=== PATIENT | male | born 1950 | race Caucasian/White ===

== ENCOUNTER → 2018-09-12 | Outpatient (CLI) | payer BC ==
--- NOTE | 2018-09-12 16:54 | Diagnostic Imaging Report ---
CLINICAL INDICATION: Patient has had some numbness around the left side of the mouth going down to his chin x 2 days. EXAM: Axial CT scan of the brain performed without IV contrast. COMPARISON: None. FINDINGS: There is no evidence of acute cerebral infarct, intracranial hemorrhage, or gross mass effect. The brain parenchymal volume appears appropriate for the patient's age. There are a few focal areas of low-attenuation white matter changes involving both cerebral hemispheres, likely representing chronic small vessel ischemic disease. There is normal perez/white matter distinction. There is no significant midline shift or herniation. There is no evidence of hydrocephalus. The basal cisterns are unremarkable. The skull, extracranial soft tissue, and orbits are unremarkable. The paranasal sinuses are unremarkable. The temporal bones show no significant abnormality. IMPRESSION: Unremarkable CT scan of the brain for age. Dictated by: Dictated on workstation # [id number]
== END ==
LOC: RAD FS 16:39
PROVIDERS: ATTEND Family Medicine
DX: R20.0 Anesthesia of skin (principal)
CPT/HCPCS: 70450

== ENCOUNTER → 2019-04-15 | Outpatient (CLI) | payer BC ==
--- NOTE | 2019-04-15 12:08 | Diagnostic Imaging Report ---
Right knee at 1048 hours. INDICATION: Knee pain. Three views were obtained. COMPARISON: There are no prior studies available for comparison. FINDINGS: There is no fracture, dislocation or acute bony abnormality evident. However, the articular surface of the medial aspect of the proximal tibia does seem depressed. This could be a sequela of prior trauma. This could also be related to degenerative disease. There is narrowing of all three compartments of the knee joint and there is osteophyte formation along the medial aspect of the medial femoral condyle and the anterior aspect of the distal femur. There may also be mild soft tissue edema along the medial aspect of the knee joint. There is no sign of a joint effusion. IMPRESSION: 1. There is no evidence for an acute bony abnormality. 2. 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 2. If clinical concern regarding an underlying abnormality persists and further imaging is desired, then MRI would be recommended. Dictated by: Dictated on workstation # [id number]
== END ==
LOC: RAD FS 10:39
PROVIDERS: ATTEND Nurse Practitioner
DX: M17.11 Unilateral primary osteoarthritis, right knee (principal)
CPT/HCPCS: 73562

== ENCOUNTER 2019-05-05 22:12 | Emergency (ER) | payer BC, MEDICARE ==
[~2019-05-05] VITALS: Ht 175 cm; Wt 69.1 kg
[2019-05-05] MEDS ORDERED: NS IV 1000 ML 1,000 ML IV SCH (22:48)
[2019-05-05] MEDS ORDERED: fentaNYL INJECTION 100 MCG/2 ML AMP IVP STA (22:48)
[2019-05-05] MEDS ORDERED: VANCOMYCIN INJECTION 1,000 MG in NS (IVPB) 250 ML IV ONE (23:00)
[2019-05-05] MEDS ORDERED: PIPERACILLIN SODIUM/TAZOBACTAM 4.5 GM in NS (IVPB) 100 ML IV ONE (23:00)
[2019-05-05] MEDS ORDERED: ONDANSETRON 4 MG/2 ML (SDV) Z0FRAN IVP ONE (23:00)
[2019-05-05 23:07] LABS: BASOPHILS % (AUTO) 0 % (0-10); EOSINOPHILS # (AUTO) 0.2 10^3/uL (0.0-0.3); EOSINOPHILS % (AUTO) 2 % (0-10); HEMATOCRIT 44 % (40-54); HEMOGLOBIN 14.8 G/DL (13.3-17.7); LYMPHOCYTES # (AUTO) 2.5 X 10^3 (1.0-4.0); LYMPHOCYTES % (AUTO) 22 % (12-44); MEAN CORPUSCULAR HEMOGLOBIN 30 PG (25-34); MEAN CORPUSCULAR HGB CONC 34 G/DL (32-36); MEAN CORPUSCULAR VOLUME 90 FL (80-99); MONOCYTES # (AUTO) 1.3 X 10^3 (0.0-1.0); MONOCYTES % (AUTO) 12 % (0-12); NEUTROPHILS # (AUTO) 7.5 X 10^3 (1.8-7.8); NEUTROPHILS % (AUTO) 65 % (42-75); PLATELET COUNT 170 10^3/uL (130-400); RED CELL DISTRIBUTION WIDTH 16.1 % (10.0-14.5); WHITE BLOOD COUNT 11.6 10^3/uL (4.3-11.0)
[2019-05-05 23:13] LABS: BILIRUBIN,URINE NEGATIVE (NEGATIVE); CLARITY,URINE CLEAR; COLOR,URINE YELLOW; GLUCOSE, URINE (UA) NEGATIVE (NEGATIVE); KETONES,URINE NEGATIVE (NEGATIVE); LEUKOCYTE ESTERASE ,URINE 1+ (NEGATIVE); NITRITE,URINE NEGATIVE (NEGATIVE); PH,URINE 5 (5-9); PROTEIN,URINE 1+ (NEGATIVE)
[2019-05-05 23:18] LABS: INR 1.2 (0.8-1.4); PROTHROMBIN TIME PATIENT 15.9 SEC (12.2-14.7)
[2019-05-05 23:20] LABS: BACTERIA,URINE NEGATIVE /HPF; SQUAMOUS EPITHELIAL CELL,UR 0-2 /HPF; WBC,URINE RARE /HPF
[2019-05-05 23:27] LABS: ALANINE AMINOTRANSFERASE 23 U/L (0-55); ALBUMIN 3.7 GM/DL (3.2-4.5); ALKALINE PHOSPHATASE 102 U/L (40-136); AMYLASE 49 U/L (25-125); BUN/CREATININE RATIO 42; CARBON DIOXIDE 22 MMOL/L (21-32); CHLORIDE 101 MMOL/L (98-107); CREATININE SERUM 0.66 MG/DL (0.60-1.30); GFR ESTIMATED > 60; GLUCOSE 104 MG/DL (70-105); LIPASE 45 U/L (8-78); MAGNESIUM 2.1 MG/DL (1.6-2.4); POTASSIUM 4.8 MMOL/L (3.6-5.0); SODIUM 134 MMOL/L (135-145); TOTAL PROTEIN 7.2 GM/DL (6.4-8.2)
[2019-05-05] MEDS ORDERED: LACTATED RINGERS 1,000 ML IV ONE (23:35)
[2019-05-06] MEDS ORDERED: IOHEXOL 350 MG/ML 150 ML (OMNIPAQUE 350) VIAL IV ONE (00:15)
[2019-05-06] MEDS ORDERED: NS 100 ML (IVPB) BAG IV ONE (00:15)
[2019-05-06] MEDS ORDERED: ONDANSETRON 4 MG/2 ML (SDV) Z0FRAN IVP ONE (00:45)
[2019-05-06] MEDS ORDERED: fentaNYL INJECTION 100 MCG/2 ML AMP IVP ONE ×2 (00:45→01:45)
[2019-05-06] MEDS ORDERED: PANTOPRAZOLE 40 MG (PROTONIX) VIAL IV ONE (00:45)
--- NOTE | 2019-05-06 00:50 | ED General ---
General Chief Complaint: General Problems/Pain Stated Complaint: NAUSEA, PAIN Nursing Triage Note: Pt to [facility] 3 via w/c with c/o overall weakness and left jaw pain unrelieved with prescribed meds. 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 Pt also reports he's been dry heaving since approx 1999 this evening. Nursing Sepsis Screen: No Definite Risk Source of Information: Patient, Family History of Present Illness Date Seen by Provider: May 05, 2019 Time Seen by Provider: 22:35 Initial Comments PT ARRIVES VIA POV FROM HOME WITH FAMILY C/O SEVERE PAIN IN LEFT JAW, ALSO SWELLING TO LEFT JAW--ONGOING PROBLEM, GETTING WORSE ALSO C/O MID ABDOMINAL PAIN--ONGOING PROBLEM, WORSE TODAY C/O NAUSEA AND DRY HEAVES ALSO C/O ONGOING DIARRHEA FOR A FEW WEEKS, BUT ALSO HAS INTERMITTENT CONSTIPA TION NO FEVER ALSO C/O ONGOING HEARTBURN AND SOME DIFFICULTY SWALLOWING AT TIMES. 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 LATER THE PRIMARY WAS FOUND TO BE IN HIS LEFT KIDNEY. STATES THE TUMOR IN HIS JAW IS CAUSING HIS TEETH TO SHIFT AND HAS ACTUALLY CAUSED HIS JAW TO FRACTURE. PT HAS NOT HAD SURGERY OR RADIATION. PT HAS ONLY HAD IMMUNOTHERAPY, BUT QUIT TAKING THAT THE FIRST OF . PT IS NOW ON ORAL CHEMOTHERAPY. PT IS FOLLOWED BY DR. VILLEGAS, ONCOLOGIST, AT . NEXT APPOINTMENT IS 05/13/19 PT HAS A FEEDING TUBE IN PLACE, HE CANNOT HAVE ANYTHING THAT REQUIRES CHEWING. HE IS ABLE TO DRINK LIQUIDS WELL. FEEDING TUBE HAS BEEN WORKING NORMALLY. STATES HE HAS BEEN HAVING INCREASED SWELLING TO JAW, AND HAS BEEN TREATED WITH STEROIDS AND ANTIBIOTICS--THE LAST TIME WAS 3-4 WEEKS AGO, AND IT HAD GOTTEN BETTER FOR A WEEK OR TWO, AND THEN STARTED GETTING WORSE AGAIN SAW DR. ANTHONY LAST MONDAY AND AGAIN ON Monday05/03/19 FOR THIS PROBLEM, AND WAS PRESCRIBED CLINDAMYCIN AND A STEROID, THIS IS THE REGIMEN THAT HAD BEEN GIVING HIM. PT HAS BEEN TAKING HYDROCODONE FOR PAIN, BUT IS NOT HELPING. HAS BEEN ON OXYCODONE IN THE PAST, BUT PT CANNOT TOLERATE IT. ADDITIONALLY, PT HAD A TONSIL STONE EXTRACTED AT IN THE LAST WEEK OR TWO. PT ALSO HAD A STEROID SHOT IN HIS LEFT KNEE LAST WEEK BY ESTHETICIAN/OWNER ЮЛИЯ SMITH, FOR CHRONIC KNEE PAIN . PCP: DR. ANTHONY ONCOLOGY: DR. VILLEGAS AT Allergies and Home Medications Allergies Coded Allergies: lisinopril (Verified Allergy, Intermediate, 05/05/19) Home Medications Diphenoxylate HCl/Atropine 1 Each Tablet, 1 EACH PO Q6H Prescribed by: ALLAN PIERCE on 05/06/19127 Fentanyl 1 Each Patch.td72, 50 MCG TD Q72H Prescribed by: ALLAN PIERCE on 05/06/19117 Ondansetron 8 Mg Tab.rapdis, 8 MG PO Q6H Prescribed by: ALLAN PIERCE on 05/06/19117 Pantoprazole Sodium 40 Mg Tablet.dr, 40 MG PO DAILY Prescribed by: ALLAN PIERCE on 05/06/19117 Patient Home Medication List Home Medication List Reviewed: Yes Review of Systems Review of Systems Constitutional: no symptoms reported; No chills, No fever EENTM: see HPI Respiratory: no symptoms reported; No cough, No short of breath Cardiovascular: no symptoms reported Gastrointestinal: see HPI, abdominal pain, diarrhea, loss of appetite, nausea Genitourinary: no symptoms reported Musculoskeletal: other (ONGOING LEFT KNEE PAIN--GOT STEROID SHOT IN LEFT KNEE LAST WEEK) Skin: no symptoms reported Psychiatric/Neurological: No Symptoms Reported Hematologic/Lymphatic: No Symptoms Reported Immunological/Allergic: see HPI Past Jkojefj-Ybjhnw-Cgksmo Hx Patient Social History Alcohol Use: Denies Use Recreational Drug Use: No Smoking Status: Former Smoker (SMOKED 1 PPD, QUIT 20 YEARS AGO. THEN CHEWED TOBACCO, ALSO QUIT THAT) Type Used: Cigarettes, Smokeless Tobacco 2nd Hand Smoke Exposure: No Recent Foreign Travel: No Contact w/Someone Who Travel: No Recent Infectious Disease Expo: No Recent Hopitalizations: Yes Physical Abuse: No Sexual Abuse: No Mistreated: No Fear: No Seasonal Allergies Seasonal Allergies: No Past Medical History Surgeries: Yes (PARTIAL COLECTOMY FOR BENIGN POLYPS; LEFT KNEE SCOPE; FEEDING TUBE. ) Abdominal, Orthopedic Respiratory: No Cardiac: Yes Hypertension Neurological: No Genitourinary: Yes (LEFT RENAL CANCER--Dx October 2018) Gastrointestinal: Yes (FEEDING TUBE; PARTIAL COLECTOMY FOR BENIGN POLYPS) Polyps Musculoskeletal: No Endocrine: No HEENT: Yes (LEFT MANDIBLE METASTATIC MASS-FROM PRIMARY TUMOR OF LEFT KIDNEY) Cancer: Yes (LEFT RENAL CANCER WITH METS TO LEFT MANDIBLE. DX 10/2018--S/P IMMUNOTHERAPY ( NONE SINCE 03/17/19) AND CURRENTLY ON ORAL CHEMO. ) Kidney Did You Recieve Any Treatments: Yes What Type of Treatment Did You: Chemotherapy Psychosocial: No Integumentary: No Blood Disorders: No Physical Exam Vital Signs Vital Signs - First Documented 05/05/19 22:20 Temp 37.4 Pulse 105 Resp 18 B/P (MAP) 109/78 (88) Pulse Ox 96 O2 Delivery Room Air Capillary Refill : Less Than 3 Seconds Height, Weight, BMI Height: '" Weight: lbs. oz. kg; 22.00 BMI Method: General Appearance: No Apparent Distress, WD/WN HEENT: PERRL/EOMI, Other (VERY LARGE, FIRM MASS TO LEFT MANDIBULAR AREA. NO SIGNS OF INFLAMMATION TO SKIN--NO REDNESS OR WARMTH. ) Neck: Full Range of Motion Respiratory: Normal Breath Sounds, No Accessory Muscle Use, No Respiratory Dist ress Cardiovascular: Regular Rate, Rhythm, No Edema, No Murmur Gastrointestinal: Soft, Other (FEEDING TUBE IN PLACE. MILD MID ABDOMINAL TENDERNESS. ) Back: No CVA Tenderness Extremity: Normal Inspection Neurologic/Psychiatric: Alert, Oriented x3, No Motor/Sensory Deficits, fur scraper II- XII Norm as Tested, Depressed Affect, Other (FLAT AFFECT) Skin: Normal Color, Warm/Dry Focused Exam Lactate Level 05/05/19 23:06: Lactic Acid Level 1.53 Lactic Acid Level Laboratory Tests Test 05/05/19 23:06 Lactic Acid Level 1.53 MMOL/L (0.50-2.00) Progress/Results/Core Measures Suspected Sepsis Recent Fever Within 48 Hours: No Infection Criteria Present: None New/Unexplained Altered Menta: No Sepsis Screen: No Definite Risk SIRS Temperature: Pulse: 105 Respiratory Rate: 18 Laboratory Tests 05/05/19 22:58: White Blood Count 11.6H Blood Pressure 109 /78 Mean: 88 05/05/19 23:06: Lactic Acid Level 1.53 Laboratory Tests 05/05/19 22:58: Creatinine 0.66, INR Comment 1.2, Platelet Count 170, Total Bilirubin 1.0 Results/Orders Lab Results Laboratory Tests Test 05/05/19 22:58 05/05/19 23:06 10/20/19 23:09 Range/Units White Blood Count 11.6 H 4.3-11.0 10^3/uL Red Blood Count 4.91 4.35-5.85 10^6/uL Hemoglobin 14.8 13.3-17.7 G/DL Hematocrit 44 40-54 % Mean Corpuscular Volume 90 80-99 FL Mean Corpuscular Hemoglobin 30 25-34 PG Mean Corpuscular Hemoglobin Concent 34 32-36 G/DL Red Cell Distribution Width 16.1 H 10.0-14.5 % Platelet Count 170 130-400 10^3/uL Mean Platelet Volume 11.0 H 7.4-10.4 FL Neutrophils (%) (Auto) 65 42-75 % Lymphocytes (%) (Auto) 22 12-44 % Monocytes (%) (Auto) 12 0-12 % Eosinophils (%) (Auto) 2 0-10 % Basophils (%) (Auto) 0 0-10 % Neutrophils # (Auto) 7.5 1.8-7.8 X 10^3 Lymphocytes # (Auto) 2.5 1.0-4.0 X 10^3 Monocytes # (Auto) 1.3 H 0.0-1.0 X 10^3 Eosinophils # (Auto) 0.2 0.0-0.3 10^3/uL Basophils # (Auto) 0.0 0.0-0.1 10^3/uL Prothrombin Time 15.9 H 12.2-14.7 SEC INR Comment 1.2 0.8-1.4 Activated Partial Thromboplast Time 36 H 24-35 SEC Sodium Level 134 L 135-145 MMOL/L Potassium Level 4.8 3.6-5.0 MMOL/L Chloride Level 101 98-107 MMOL/L Carbon Dioxide Level 22 21-32 MMOL/L Anion Gap 11 5-14 MMOL/L Blood Urea Nitrogen 28 H 7-18 MG/DL Creatinine 0.66 0.60-1.30 MG/DL Estimat Glomerular Filtration Rate > 60 BUN/Creatinine Ratio 42 Glucose Level 104 70-105 MG/DL Calcium Level 9.0 8.5-10.1 MG/DL Corrected Calcium 9.2 8.5-10.1 MG/DL Magnesium Level 2.1 1.6-2.4 MG/DL Total Bilirubin 1.0 0.1-1.0 MG/DL Aspartate Amino Transf (AST/SGOT) 39 H 5-34 U/L Alanine Aminotransferase (ALT/SGPT) 23 0-55 U/L Alkaline Phosphatase 102 40-136 U/L Total Protein 7.2 6.4-8.2 GM/DL Albumin 3.7 3.2-4.5 GM/DL Amylase Level 49 25-125 U/L Lipase 45 8-78 U/L Lactic Acid Level 1.53 0.50-2.00 MMOL/L Urine Color YELLOW Urine Clarity CLEAR Urine pH 5 5-9 Urine Specific [place] 1.010 L 1.016-1.022 Urine Protein 1+ H NEGATIVE Urine Glucose (UA) NEGATIVE NEGATIVE Urine Ketones NEGATIVE NEGATIVE Urine Nitrite NEGATIVE NEGATIVE Urine Bilirubin NEGATIVE NEGATIVE Urine Urobilinogen NORMAL NORMAL MG/DL Urine Leukocyte Esterase 1+ H NEGATIVE Urine RBC (Auto) NEGATIVE NEGATIVE Urine RBC NONE /HPF Urine WBC RARE /HPF Urine Squamous Epithelial Cells 0-2 /HPF Urine Crystals NONE /LPF Urine Bacteria NEGATIVE /HPF Urine Casts NONE /LPF Urine Mucus SMALL H /LPF Urine Culture Indicated CULTURE PENDING My Orders Orders - ALLAN PIERCE DO Monitor-Rhythm Ecg Trace Only (05/05/19 22:48) Amylase (05/05/19 22:48) Cbc With Automated Diff (05/05/19 22:48) Comprehensive Metabolic Panel (05/05/19 22:48) Lactic Acid Analyzer (05/05/19 22:48) Lipase (05/05/19 22:48) Magnesium (05/05/19 22:48) Protime With Inr (05/05/19 22:48) Partial Thromboplastin Time (05/05/19 22:48) Ua Culture If Indicated (05/05/19 22:48) Blood Culture (05/05/19 22:48) Chest 1 View, Ap/Pa Only (05/05/19 22:48) Ed Iv/Invasive Line Start (05/05/19 22:48) Ns Iv 1000 Ml (Sodium Chloride 0.9%) (05/05/19 22:48) Ondansetron Injection (Zofran Injectio (05/05/19 23:00) Fentanyl Injection (Sublimaze Injection (05/05/19 22:48) Piperacillin Sodium/Tazobactam (Zosyn Vi (05/05/19 23:00) Vancomycin Injection (Vancomycin Injecti (05/05/19 23:00) Urine Culture (05/05/19 22:48) Ed Iv/Invasive Line Start (05/05/19 22:48) Ed Iv/Invasive Line Start (05/05/19 22:48) Vital Signs Adult Sepsis Patie Q15M (05/05/19 22:48) O2 (05/05/19 22:48) Remove Rings In Anticipation O (05/05/19 22:48) Ct Maxillofacial W (05/05/19 23:34) Ct Chest/Abdomen/Pelvis W (05/05/19 23:34) Ed Iv/Invasive Line Start (05/05/19 23:35) Lactated Ringers (Lr 1000 Ml Iv Solution (05/05/19 23:35) Iohexol Injection (Omnipaque 350 Mg/Ml 1 (05/06/19 00:15) Ns (Ivpb) (Sodium Chloride 0.9% Ivpb Bag (05/06/19 00:15) Pantoprazole Injection (Protonix Injecti (05/06/19 00:45) Fentanyl Injection (Sublimaze Injection (05/06/19 00:45) Ondansetron Injection (Zofran Injectio (05/06/19 00:45) Fentanyl Patch (Duragesic Patch) (05/06/19 01:15) Rx-Ondansetron Po (Rx-Zofran Po) (05/06/19 01:13) Medications Given in ED Current Medications Medications Dose Ordered Sig/Britton Route Start Time Stop Time Status Last Admin Dose Admin Fentanyl Citrate 50 mcg ONCE ONCE IVP 05/06/19 00:45 05/06/19 00:46 DC 05/06/19 00:46 50 MCG Iohexol 150 ml ONCE ONCE IV 05/06/19 00:15 05/06/19 01:15 DC 05/06/19 00:16 150 ML Lactated Ringer's 1,000 ml @ 0 mls/hr Q0M ONCE IV 05/05/19 23:35 05/05/19 23:36 DC 05/06/19 00:51 0 MLS/HR Ondansetron HCl 8 mg ONCE ONCE IVP 05/05/19 23:00 05/05/19 23:01 DC 05/05/19 23:23 8 MG Ondansetron HCl 8 mg ONCE ONCE IVP 05/06/19 00:45 05/06/19 00:46 DC 05/06/19 00:46 8 MG Pantoprazole 40 mg ONCE ONCE IV 05/06/19 00:45 05/06/19 00:46 DC 05/06/19 00:46 40 MG Piperacillin Sod/ Tazobactam Sod 4.5 gm/Sodium Chloride 100 ml @ 200 mls/hr ONCE ONCE IV 05/05/19 23:00 05/05/19 23:29 DC 05/06/19 01:19 200 MLS/HR Sodium Chloride 100 ml ONCE ONCE IV 05/06/19 00:15 05/06/19 01:16 DC 05/06/19 00:16 100 ML Vancomycin HCl 1000 mg/Sodium Chloride 250 ml @ 250 mls/hr ONCE ONCE IV 05/05/19 23:00 05/05/19 23:59 DC 05/05/19 23:28 250 MLS/HR Vital Signs/I&O 05/05/19 22:20 Temp 37.4 Pulse 105 Resp 18 B/P (MAP) 109/78 (88) Pulse Ox 96 O2 Delivery Room Air Capillary Refill : Less Than 3 Seconds Blood Pressure Mean: 88 Progress Note : Progress Note GIVEN FENTANYL FOR PAIN AND ZOFRAN FOR NAUSEA WITH IMPROVEMENT IN SYMPTOMS NO DETERIORATION IN PT'S CONDITION DURING ER STAY Diagnostic Imaging Comments CT MAXILLOFACIALS--LARGE DESTRUCTIVE MASS ON LEFT MANDIBULAR ANGLE/RAMUS 4.2 X 2. X 5.3 CM. ERODES THROUGH THE LEFT MANDIBLE AND IN THE BASE INTO THE SURROUNDING SOFT TISSUE STRUCTURES--PER [facility] VIA FAX AT 0043 CT CHEST ANGIOGRAM/ ABDOMEN - PELVIS---LEFT EXOPHYTIC PARTIALLY CALCIFIED RENAL "CYST" , NO DEFINITE METASTASIS IN ABDOMEN OR CHEST. PROSTATE ENLARGEMENT--PER [facility] VIA FAX AT 0101 CXR--NO ACUTE PROCESS, PENDING RADIOLOGIST REVIEW Reviewed: Reviewed by Me Departure Impression Primary Impression: Primary cancer of left kidney with metastasis from kidney to other site Additional Impressions: METASTATIC MASS OF LEFT MANDIBLE Abdominal pain LEFT JAW PAIN Alternating constipation and diarrhea Disposition: 01 HOME, SELF-CARE Condition: Improved Departure-Patient Inst. Referrals: BRYAN ANTHONY DO (PCP/Family) Primary Care Physician Patient Instructions: Acute Abdomen (Belly Pain), Adult (DC), Cancer Pain Syndromes (DC), Kidney Cancer, Managing Pain When You Have Cancer Add. Discharge Instructions: CONTINUE YOUR CURRENT MEDICATIONS PRESCRIBED LEAVE FENTANYL PATCH IN PLACE FOR 3 DAYS FOLLOW UP WITH DR. ANTHONY THIS WEEK FOR FURTHER CARE FOLLOW UP WITH YOUR ONCOLOGIST NEXT WEEK SCHEDULED. All discharge instructions reviewed with patient and/or family. Voiced understanding. Scripts Diphenoxylate HCl/Atropine (Lomotil 2.5-0.025 mg Tablet) 1 Each Tablet 1 EACH PO Q6H for Diarrhea, #20 TAB Prov: ALLAN PIERCE DO 05/06/19 Pantoprazole Sodium (Protonix) 40 Mg Tablet.dr 40 MG PO DAILY, #15 TAB Prov: ALLAN PIERCE DO 05/06/19 Ondansetron (Ondansetron Odt) 8 Mg Tab.rapdis 8 MG PO Q6H for Nausea/Vomiting, #10 TAB Prov: ALLAN PIERCE DO 05/06/19 Fentanyl (Fentanyl Patch 50 MCG) 1 Each Patch.td72 50 MCG TD Q72H, #1 PATCH Prov: ALLAN PIERCE DO 05/06/19 ALLAN PIERCE DO May 06, 2019 00:50
[2019-05-06] MEDS ORDERED: RX-ONDANSETRON 4 MG ODT (ZOFRAN) PPK #4 PO STA (01:13)
[2019-05-06] MEDS ORDERED: fentaNYL PATCH 50 MCG (DURAGESIC) TD SCH (01:15)
[2019-05-06] MEDS ORDERED: ONDA8TAB13 PO (01:18)
[2019-05-06] MEDS ORDERED: PANT40TA2 PO (01:18)
[2019-05-06] MEDS ORDERED: FENT1PAT9 TD (01:18)
[2019-05-06] MEDS ORDERED: DIPH1TAB PO (01:28)
[2019-05-06 02:00] VITALS: BP 110/85
--- NOTE | 2019-05-06 08:02 | Diagnostic Imaging Report ---
PROCEDURE: CT maxillofacial with contrast. TECHNIQUE: After intravenous administration of contrast, axial images were obtained through the face and reformatted into coronal and sagittal planes. Auto Exposure Controls were utilized during the CT exam to meet ALARA standards for radiation dose reduction. INDICATION: Facial pain and diagnosis of cancer. Imaging through the lower brain reveals no focal abnormality. There is expansile lytic destructive lesion involving the body of the left mandible measuring approximately 3.5 x 4.0 x 4.9 cm. This results in marked destruction of the left mandible and displacement of the associated teeth. There is extraosseous soft tissue component extending into the subcutaneous tissues superficially as well as into the medial retromandibular tissues. No other definite bone destruction is identified. There is no evidence of pathologic adenopathy. There is no evidence of airway compromise. IMPRESSION: Destructive left mandibular body mass with associated naheed-osseous soft tissue component compatible with neoplasm resulting in direct extension into the adjacent fat planes. No definite pathologic adenopathy is identified. Dictated by: Dictated on workstation # [id number]
--- NOTE | 2019-05-06 08:10 | Diagnostic Imaging Report ---
CHEST 1 VIEW, AP/PA ONLY Indication: Chest pain. Comparison: None available. Findings: No focal airspace disease in the visualized lungs. Please note that the posterior lower lobes are poorly evaluated by portable radiography. No pleural effusion or pneumothorax. Normal cardiomediastinal silhouette. Impression: 1. No acute cardiopulmonary process by portable radiography. Dictated by: Dictated on workstation # [id number]
--- NOTE | 2019-05-06 08:10 | Diagnostic Imaging Report ---
PROCEDURE: CT chest, abdomen, and pelvis with contrast. TECHNIQUE: Multiple contiguous axial images were obtained through the chest, abdomen, and pelvis after the administration of intravenous contrast. Auto Exposure Controls were utilized during the CT exam to meet ALARA standards for radiation dose reduction. INDICATION: Nausea and abdominal pain in patient with history of cancer. CT chest: FINDINGS: Lungs are clear. There is no significant pleural or pericardial fluid. No pathologic adenopathy is identified. There is no evidence of osseous lesion. IMPRESSION: No acute abnormality or evidence of metastatic disease in the thorax. CT abdomen and pelvis: FINDINGS: Low density is seen in the liver indicating steatosis. Percutaneous gastrostomy tube is seen in the left upper quadrant without evidence of complication. There is no evidence of splenic, gallbladder, pancreatic or adrenal gland abnormality. Right kidney is also unremarkable in appearance. There is an approximately 9 cm in diameter low-density mass arising from the lower pole of the left kidney. There are peripheral calcifications. Overall density is increased compared to simple fluid and this could be related to complex cystic mass although solid low-density nature is not excluded. No free fluid is seen within the abdomen or pelvis. There is no evidence of pathologic adenopathy. Partially opacified urinary bladder reveals no filling defect. Lateral wall is somewhat thickened which could be due to incomplete distention. IMPRESSION: 9 cm left renal mass does not fulfill criteria for simple cyst. This could be related to complex cystic lesion or solid mass. This could be further assessed with ultrasonography or MRI for assessment. Otherwise, no acute abnormality or metastatic disease is seen in the abdomen or pelvis. Dictated by: Dictated on workstation # [id number]
== END 2019-05-06 02:04 | disposition home or self-care (01) ==
LOC: EDUNIT# 22:12 → ER 22:14
DX: C64.2 Malignant neoplasm of left kidney, except renal pelvis (principal); C79.51 Secondary malignant neoplasm of bone; K59.00 Constipation, unspecified; R19.7 Diarrhea, unspecified; I10 Essential (primary) hypertension; Z88.8 Allergy status to other drugs, medicaments and biological substances; Z87.891 Personal history of nicotine dependence
CPT/HCPCS: 36415; 70487; 71045; 71260; 74177; 80053; 81000; 82150; 83605; 83690; 83735; 85025; 85610; 85730; 87040; 87077; 87088; 87186; 93041

== ENCOUNTER 2019-05-26 15:21 | Inpatient (IN) | payer BC, MEDICARE ==
[~2019-05-26] VITALS: Ht 177.8 cm; Wt 76.6 kg
[~2019-05-26 15:21] MED LIST: DIPH1TAB PO; FENT1PAT9 TD; ONDA8TAB13 PO; PANT40TA2 PO
[2019-05-26 15:56] LABS: HEMATOCRIT 46 % (40-54); HEMOGLOBIN 14.5 G/DL (13.3-17.7); MEAN CORPUSCULAR HEMOGLOBIN 29 PG (25-34); MEAN CORPUSCULAR HGB CONC 32 G/DL (32-36); MEAN CORPUSCULAR VOLUME 91 FL (80-99); WHITE BLOOD COUNT 7.8 10^3/uL (4.3-11.0)
[2019-05-26 15:57] LABS: BASOPHILS % (AUTO) 1 % (0-10); EOSINOPHILS # (AUTO) 0.1 10^3/uL (0.0-0.3); EOSINOPHILS % (AUTO) 2 % (0-10); LYMPHOCYTES # (AUTO) 2.4 X 10^3 (1.0-4.0); LYMPHOCYTES % (AUTO) 30 % (12-44); MONOCYTES # (AUTO) 0.7 X 10^3 (0.0-1.0); MONOCYTES % (AUTO) 9 % (0-12); NEUTROPHILS # (AUTO) 4.6 X 10^3 (1.8-7.8); NEUTROPHILS % (AUTO) 58 % (42-75); PLATELET COUNT 196 10^3/uL (130-400); RED CELL DISTRIBUTION WIDTH 14.9 % (10.0-14.5)
[2019-05-26 16:00] LABS: BILIRUBIN,URINE NEGATIVE (NEGATIVE); CLARITY,URINE CLEAR; COLOR,URINE YELLOW; GLUCOSE, URINE (UA) NEGATIVE (NEGATIVE); KETONES,URINE NEGATIVE (NEGATIVE); LEUKOCYTE ESTERASE ,URINE NEGATIVE (NEGATIVE); NITRITE,URINE NEGATIVE (NEGATIVE); PROTEIN,URINE NEGATIVE (NEGATIVE)
[2019-05-26] MEDS ORDERED: HYDROmorphone 2 MG/ML VIAL (DILAUDID) IV ONE (16:00)
[2019-05-26 16:01] LABS: SQUAMOUS EPITHELIAL CELL,UR RARE /HPF
[2019-05-26 16:26] LABS: BUN/CREATININE RATIO 38; CARBON DIOXIDE 25 MMOL/L (21-32); CHLORIDE 97 MMOL/L (98-107); GFR ESTIMATED > 60; POTASSIUM 4.7 MMOL/L (3.6-5.0); SODIUM 136 MMOL/L (135-145)
[2019-05-26 16:27] LABS: ALANINE AMINOTRANSFERASE 43 U/L (0-55); ALKALINE PHOSPHATASE 132 U/L (40-136); BILIRUBIN,TOTAL 1.5 MG/DL (0.1-1.0); CALCIUM 9.8 MG/DL (8.5-10.1); GLUCOSE 113 MG/DL (70-105); LIPASE 3000 U/L (8-78); TOTAL PROTEIN 7.4 GM/DL (6.4-8.2)
--- NOTE | 2019-05-26 17:27 | ED Abdominal Pain ---
General Chief Complaint: Abdominal/GI Problems Stated Complaint: STOMACH PAIN Nursing Triage Note: Patient presents to the ED with c/o severe abdominal pain. Reports that the pain is located in the epigastric region and started yesterday evening. The pain is increased upon palpation of the area. Patient has a feeding tube that was placed 4 months prior. Family states that he has had no issues flushing his feeding tube. Sepsis Screen: No Definite Risk Source of Information: Patient, Family Exam Limitations: No Limitations History of Present Illness Date Seen by Provider: May 26, 2019 Time Seen by Provider: 17:22 Initial Comments The patient is a 68-year-old white male who presents with complaints of severe and sharp midepigastric pain. He reports that this pain came on this morning. He has not ever really had anything quite like. 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 He has been using a tube feeding for the past 4 months. He has a past history of colon resection and his family states that he has had diarrhea since he has been on the tube feeding. He has been taking pain medicine for his cancer. He is presently on fentanyl 25 g every 72 hours. He has hydrocodone and oxycodone for breakthrough pain but has not found him to be very useful. Timing/Duration: 12 Hours Severity/Quality: Moderate, Severe Location: Epigastric Radiation: No Radiation Activities at Onset: None Allergies and Home Medications Allergies Coded Allergies: lisinopril (Verified Allergy, Intermediate, 05/05/19) Home Medications Diphenoxylate HCl/Atropine 1 Each Tablet, 1 EACH PO Q6H Prescribed by: ALLAN PIERCE on 05/06/19127 Fentanyl 1 Each Patch.td72, 50 MCG TD Q72H Prescribed by: ALLAN PIERCE on 05/06/19117 Ondansetron 8 Mg Tab.rapdis, 8 MG PO Q6H Prescribed by: ALLAN PIERCE on 05/06/19117 Pantoprazole Sodium 40 Mg Tablet.dr, 40 MG PO DAILY Prescribed by: ALLAN PIERCE on 05/06/19117 Patient Home Medication List Home Medication List Reviewed: Yes Review of Systems Review of Systems Constitutional: see HPI EENTM: No Symptoms Reported Respiratory: No Symptoms Reported Cardiovascular: No Symptoms Reported Gastrointestinal: See HPI, Diarrhea Genitourinary: See HPI Musculoskeletal: no symptoms reported Skin: no symptoms reported Psychiatric/Neurological: No Symptoms Reported Endocrine: No Symptoms Reported Hematologic/Lymphatic: No Symptoms Reported Past Uxigigz-Bafojt-Aubiud Hx Patient Social History Alcohol Use: Denies Use Recreational Drug Use: No Smoking Status: Former Smoker Type Used: Cigarettes, Smokeless Tobacco 2nd Hand Smoke Exposure: No Recent Foreign Travel: No Contact w/Someone Who Travel: No Recent Infectious Disease Expo: No Recent Hopitalizations: Yes Physical Abuse: No Sexual Abuse: No Mistreated: No Fear: No Seasonal Allergies Seasonal Allergies: No Past Medical History Surgeries: Yes (PARTIAL COLECTOMY FOR BENIGN POLYPS; LEFT KNEE SCOPE; FEEDING TUBE. ) Abdominal, Orthopedic Respiratory: No Cardiac: Yes Hypertension Neurological: No Genitourinary: Yes (LEFT RENAL CANCER--Dx October 2018) Gastrointestinal: Yes (FEEDING TUBE; PARTIAL COLECTOMY FOR BENIGN POLYPS) Polyps Musculoskeletal: No Endocrine: No HEENT: Yes (LEFT MANDIBLE METASTATIC MASS-FROM PRIMARY TUMOR OF LEFT KIDNEY) Cancer: Yes Kidney Did You Recieve Any Treatments: Yes What Type of Treatment Did You: Chemotherapy Psychosocial: No Integumentary: No Blood Disorders: No Physical Exam Vital Signs Vital Signs - First Documented 05/26/19 15:30 Temp 36.7 Pulse 98 Resp 19 B/P (MAP) 108/84 (92) Pulse Ox 100 O2 Delivery Room Air Capillary Refill : Less Than 3 Seconds Height/Weight/BMI Height: '" Weight: lbs. oz. kg; 21.00 BMI Method: General Appearance: no apparent distress, other (the patient is calm and pleasant.) HEENT: normal ENT inspection Neck: full range of motion Respiratory: chest non-tender, lungs clear, normal breath sounds, no respiratory distress, no accessory muscle use Cardiovascular: normal peripheral pulses, regular rate, rhythm, no edema, no gallop, no JVD, no murmur Gastrointestinal: other (feeding tube insertion site is in the right upper quadrant. The patient exhibits considerable tenderness to palpation horizontally across the umbilicus.) Back: normal inspection Neurologic/Psychiatric: bibliographic services specialist II-XII nml as tested, no motor/sensory deficits, alert Skin: normal color, warm/dry Lymphatic: no adenopathy Progress/Results/Core Measures Results/Orders Lab Results Laboratory Tests Test 05/26/19 15:35 05/26/19 15:40 Range/Units Urine Color YELLOW Urine Clarity CLEAR Urine pH 6.0 5-9 Urine Specific [place] <1.005 1.016-1.022 Urine Protein NEGATIVE NEGATIVE Urine Glucose (UA) NEGATIVE NEGATIVE Urine Ketones NEGATIVE NEGATIVE Urine Nitrite NEGATIVE NEGATIVE Urine Bilirubin NEGATIVE NEGATIVE Urine Urobilinogen 0.2 < = 1.0 MG/DL Urine Leukocyte Esterase NEGATIVE NEGATIVE Urine RBC (Auto) NEGATIVE NEGATIVE Urine RBC NONE /HPF Urine WBC NONE /HPF Urine Squamous Epithelial Cells RARE /HPF Urine Crystals NONE /LPF Urine Bacteria NONE /HPF Urine Casts NONE /LPF Urine Mucus NEGATIVE /LPF Urine Culture Indicated NO White Blood Count 7.8 4.3-11.0 10^3/uL Red Blood Count 5.06 4.35-5.85 10^6/uL Hemoglobin 14.5 13.3-17.7 G/DL Hematocrit 46 40-54 % Mean Corpuscular Volume 91 80-99 FL Mean Corpuscular Hemoglobin 29 25-34 PG Mean Corpuscular Hemoglobin Concent 32 32-36 G/DL Red Cell Distribution Width 14.9 H 10.0-14.5 % Platelet Count 196 130-400 10^3/uL Mean Platelet Volume 11.0 H 7.4-10.4 FL Neutrophils (%) (Auto) 58 42-75 % Lymphocytes (%) (Auto) 30 12-44 % Monocytes (%) (Auto) 9 0-12 % Eosinophils (%) (Auto) 2 0-10 % Basophils (%) (Auto) 1 0-10 % Neutrophils # (Auto) 4.6 1.8-7.8 X 10^3 Lymphocytes # (Auto) 2.4 1.0-4.0 X 10^3 Monocytes # (Auto) 0.7 0.0-1.0 X 10^3 Eosinophils # (Auto) 0.1 0.0-0.3 10^3/uL Basophils # (Auto) 0.0 0.0-0.1 10^3/uL Sodium Level 136 135-145 MMOL/L Potassium Level 4.7 3.6-5.0 MMOL/L Chloride Level 97 L 98-107 MMOL/L Carbon Dioxide Level 25 21-32 MMOL/L Anion Gap 14 5-14 MMOL/L Blood Urea Nitrogen 23 H 7-18 MG/DL Creatinine 0.60 0.60-1.30 MG/DL Estimat Glomerular Filtration Rate > 60 BUN/Creatinine Ratio 38 Glucose Level 113 H 70-105 MG/DL Calcium Level 9.8 8.5-10.1 MG/DL Corrected Calcium 9.8 8.5-10.1 MG/DL Total Bilirubin 1.5 H 0.1-1.0 MG/DL Aspartate Amino Transf (AST/SGOT) 92 H 5-34 U/L Alanine Aminotransferase (ALT/SGPT) 43 0-55 U/L Alkaline Phosphatase 132 40-136 U/L Total Protein 7.4 6.4-8.2 GM/DL Albumin 4.0 3.2-4.5 GM/DL Lipase 3000 H 8-78 U/L My Orders Orders - JACQUELINE WILLARD MD Cbc With Automated Diff (05/26/19 15:24) Comprehensive Metabolic Panel (05/26/19 15:24) Lipase (05/26/19 15:24) Ua Culture If Indicated (05/26/19 15:24) Hydromorphone Injection (Dilaudid Inject (05/26/19 16:00) Medications Given in ED Current Medications Medications Dose Ordered Sig/Britton Route Start Time Stop Time Status Last Admin Dose Admin Hydromorphone HCl 0.5 mg ONCE ONCE IV 05/26/19 16:00 05/26/19 16:01 DC 05/26/19 16:04 0.5 MG Vital Signs/I&O 05/26/19 15:30 Temp 36.7 Pulse 98 Resp 19 B/P (MAP) 108/84 (92) Pulse Ox 100 O2 Delivery Room Air Blood Pressure Mean: 92 POS Departure Communication (Admissions) The patient and his family were informed that his lipase was 3000. He was familiar with that as his father who was a drinker of alcohol had multiple episodes of pancreatitis. Impression Primary Impression: acute pancreatitis Additional Impression: left renal carcinoma with metastases Disposition: SHT-TRM HOSP Condition: Stable/Unchanged Transfer Transfer Reason: Exceeds level of care Time Spoke to Accepting Phy: 17:25 Transfer Progress Notes The findings were discussed with Dr. Ferrera who is the [facility] hospitalist of the day. She accepted the patient in transfer. Departure-Patient Inst. Referrals: BRYAN ANTHONY DO (PCP/Family) Primary Care Physician Patient Instructions: No Instuctions Given JACQUELINE WILLARD MD May 26, 2019 17:27 POS
[2019-05-26] MEDS ORDERED: NS IV 1000 ML 1,000 ML IV SCH (19:00)
[2019-05-26 20:40] VITALS: BP 105/75
--- NOTE | 2019-05-26 21:00 | NUR ---
ANISHEMILIA Dia admitted to room 411-1, with an admitting diagnosis of acute pancreatitis, on 05/26/[address] [facility] ed via [facility], accompanied by [facility] & .EMILIA OCONNELL introduced to surroundings, call light, bed controls, phone, TV, temperature control, lights, meal times, smoking policy, visitor policy, side rail policy, bathrooms and showers. Patient Rights given to patient in the handbook. EMILIA OCONNELL Ifeoma verbalizes understanding that [facility] is not responsible for the loss or damage to any personal effects or valuables that are kept in the patients possession during their hospitalization. The patient's plan of care was discussed with the patient, he denies any questions or concerns at this time.
[2019-05-26] MEDS: HYDROmorphone 2 MG/ML VIAL (DILAUDID) IV PRN (21:15)
[2019-05-26] MEDS ORDERED: IOHEXOL 350 MG/ML 100 ML (OMNIPAQUE 350) VIAL IV ONE (21:30)
[2019-05-26] MEDS ORDERED: NS 100 ML (IVPB) BAG IV ONE (21:30)
[2019-05-26] MEDS ORDERED: HOLD METFORMIN - RECEIVED CONTRAST 20 ML VIAL IV SCH (21:30)
--- NOTE | 2019-05-26 21:49 | NUR ---
dr. hutton notified of consult
--- NOTE | 2019-05-26 22:16 | Diagnostic Imaging Report ---
PROCEDURE: CT abdomen and pelvis with contrast. TECHNIQUE: Multiple contiguous axial images were obtained through the abdomen and pelvis after administration of intravenous contrast. Auto Exposure Controls were utilized during the CT exam to meet ALARA standards for radiation dose reduction. INDICATION: Pancreatitis. Abdominal pain. Currently on chemotherapy for stage IV kidney cancer with metastases. COMPARISON: 05/05/2019 FINDINGS: The heart is unremarkable. The included lung bases are clear. The pancreas has an unremarkable noncontrast CT appearance. No peripancreatic inflammatory changes are seen. No evidence of pancreatic pseudocyst. A large cyst is seen in the inferior pole of the left kidney with associated calcifications, unchanged compared to the prior exam. No evidence of hydronephrosis or obstructing calculi. There is hepatic steatosis of the liver with focal fatty sparing in the gallbladder fossa. No focal hepatic lesions are seen. The spleen and adrenal glands have a normal appearance. Retroperitoneal lymphadenopathy is noted, with a marker nodule in the left periaortic station measuring 2.2 cm, similar to the prior exam. A G-tube is seen in appropriate configuration. Numerous fluid-filled nondilated loops of small bowel are seen throughout the abdomen. A normal appendix is seen. No evidence of bowel obstruction. No free fluid or free air is seen. There is no free fluid or free air. No acute osseous abnormalities. Ureters and bladder are grossly normal. The prostate is enlarged. There is no free air, loculated collection, or adenopathy in the pelvis. IMPRESSION: 1. Unremarkable CT appearance of the pancreas without evidence of peripancreatic inflammation or pseudocyst. 2. Nondilated fluid-filled loops of small bowel, which may represent enteritis. No evidence of bowel obstruction at this time. 3. Large cyst in the inferior pole of the left kidney, representing the patient's history of kidney cancer. Retroperitoneal lymphadenopathy is unchanged. 4. Hepatic steatosis. No focal hepatic lesions. Dictated by: Dictated on workstation # [id number]
[2019-05-26] MEDS: NS IV 1000 ML 1,000 ML IV SCH (23:58)
[2019-05-27] VITALS (7 sets, daily range): BP systolic 104–126; BP diastolic 62–82
[2019-05-27] MEDS: HYDROmorphone 2 MG/ML VIAL (DILAUDID) IV PRN ×6 (00:08→20:25)
--- NOTE | 2019-05-27 01:23 | NUR ---
pt reports his peg tube feeding schedule is-1.5 cans in the 0800, 1200,1730- pt flushes 60 mls of water before & after feeding-pt does not remember the brand
[2019-05-27 05:25] LABS: BASOPHILS % (AUTO) 1 % (0-10); EOSINOPHILS # (AUTO) 0.2 10^3/uL (0.0-0.3); EOSINOPHILS % (AUTO) 2 % (0-10); HEMATOCRIT 44 % (40-54); LYMPHOCYTES # (AUTO) 1.6 X 10^3 (1.0-4.0); LYMPHOCYTES % (AUTO) 23 % (12-44); MEAN CORPUSCULAR HEMOGLOBIN 29 PG (25-34); MEAN CORPUSCULAR HGB CONC 32 G/DL (32-36); MEAN CORPUSCULAR VOLUME 89 FL (80-99); MEAN PLATELET VOLUME 11.7 FL (7.4-10.4); MONOCYTES # (AUTO) 0.8 X 10^3 (0.0-1.0); MONOCYTES % (AUTO) 12 % (0-12); NEUTROPHILS # (AUTO) 4.4 X 10^3 (1.8-7.8); NEUTROPHILS % (AUTO) 63 % (42-75); PLATELET COUNT 152 10^3/uL (130-400); RED CELL DISTRIBUTION WIDTH 15.8 % (10.0-14.5)
[2019-05-27] MEDS: NS IV 1000 ML 1,000 ML IV SCH ×2 (05:28→17:23)
--- NOTE | 2019-05-27 08:38 | Consultation - Surgery ---
RUDY HINSON,MED STUDENT 05/27/19 0838: History of Present Illness History of Present Illness Patient Consulted On(patito/time) 05/27/19 08:28 Date Seen by Provider: May 27, 2019 Time Seen by Provider: 07:45 History of Present Illness Mr. Keller is a 68yo male c/o abdominal pain since Monday night. He says the pain started Monday night and was a 2/10, and gradually worsened. By the time he presented to [facility] ED the pain was a 10/10. He describes the pain as a constant sharp pain in the midepigastrium that is nonradiating. Pain medication helped the pain, and nothing worsened the pain. He currently has left renal carcinoma with known metastases. He notes a metastasis to the jaw and has been receiving treatment at for his cancer. He reports diarrhea every day for the past 3 months, and has them 3-4x's/day. He describes the stool as a light dumas color and denies blood. He has a history of a colon resection and has a feeding tube in place. Denies fevers, nausea/vomiting, chest pain. He is urinating fine, and his last bowel movement was last night. Allergies and Home Medications Allergies Coded Allergies: lisinopril (Verified Allergy, Intermediate, 05/05/19) Home Medications Alprazolam 0.25 Mg Tablet, 0.25 MG PO BID, (Reported) Axitinib 5 Mg Tablet, 5 MG PO BID, (Reported) Diphenoxylate HCl/Atropine 1 Each Tablet, 1 EACH PO Q6H Prescribed by: ALLAN PIERCE on 05/06/19 0128 Diphenoxylate HCl/Atropine 1 Each Tablet, 1 TAB PO Q6H PRN for DIARRHEA, (Repo rted) Famotidine 20 Mg Tablet, 20 MG PO BID, (Reported) Fentanyl 1 Each Patch.td72, 25 MCG TD [id number], (Reported) TOOK PATCH OFF ON 05-26-2019 AND HAS NOT REAPPLIED Losartan Potassium 50 Mg Tablet, 50 MG PO DAILY, (Reported) Ondansetron 8 Mg Tab.rapdis, 8 MG PO Q6H PRN for NAUSEA/VOMITING-1ST LINE, (Reported) Pantoprazole Sodium 40 Mg Tablet.dr, 40 MG PO DAILY, (Reported) Zolpidem Tartrate 10 Mg Tablet, 10 MG PO HS, (Reported) Past Xylbdbr-Etybhr-Gxsefi Hx Patient Social History Alcohol Use: Denies Use Recreational Drug Use: No Smoking Status: Former Smoker Type Used: Cigarettes, Smokeless Tobacco 2nd Hand Smoke Exposure: No Recent Foreign Travel: No Contact w/Someone Who Travel: No Recent Infectious Disease Expo: No Recent Hopitalizations: Yes Seasonal Allergies Seasonal Allergies: No Surgeries History of Surgeries: Yes (PARTIAL COLECTOMY FOR BENIGN POLYPS; LEFT KNEE SCOPE; FEEDING TUBE. ) Surgeries: Abdominal, Orthopedic Respiratory History of Respiratory Disorde: No Cardiovascular History of Cardiac Disorders: Yes Cardiac Disorders: Hypertension Neurological History of Neurological Disord: No Genitourinary History of Genitourinary Disor: Yes (LEFT RENAL CANCER--Dx October 2018) Gastrointestinal History of Gastrointestinal Di: Yes (FEEDING TUBE; PARTIAL COLECTOMY FOR BENIGN POLYPS) Gastrointestinal Disorders: Polyps Musculoskeletal History of Musculoskeletal Dis: No Endocrine History of Endocrine Disorders: No HEENT History of HEENT Disorders: Yes (LEFT MANDIBLE METASTATIC MASS-FROM PRIMARY TUMOR OF LEFT KIDNEY) Cancer History of Cancer: Yes Cancer: Kidney Psychosocial History of Psychiatric Problem: No Integumentary History of Skin or Integumenta: No Blood Transfusions History of Blood Disorders: No Family Medical History Significant Family History: Heart Disease (Father), Cancer (Father, grandfather), Diabetes (Mother) Family Medial History: Alcoholism 19 FATHER Cardiovascular disease 19 FATHER 19 MOTHER G8 SISTER G8 SISTER Diabetes mellitus 19 MOTHER G8 SISTER G8 SISTER FH: pancreatic cancer 19 FATHER Fibromyalgia G8 SISTER Review of Systems-General Constitutional: No chills, No diaphoresis, No fever; weight loss Respiratory: No hemoptysis, No short of breath, No stridor Cardiovascular: No chest pain, No syncope Gastrointestinal: see HPI, abdominal pain, diarrhea; No hematemesis, No nausea, No vomiting Genitourinary: No dysuria, No hematuria, No hesitancy, No pain Physical Exam-General Problems Physical Exam Vital Signs Vital Signs - First Documented 05/26/19 15:30 Temp 36.7 Pulse 98 Resp 19 B/P (MAP) 108/84 (92) Pulse Ox 100 O2 Delivery Room Air Capillary Refill : Less Than 3 Seconds General Appearance: no apparent distress Eyes: Bilateral Eye PERRL, Bilateral Eye EOMI HEENT: No scleral icterus (R), No scleral icterus (L) Neck: non-tender, full range of motion, supple Respiratory: chest non-tender, lungs clear, no respiratory distress, no accessory muscle use Cardiovascular: regular rate, rhythm, no edema, no murmur Peripheral Pulses: 2+ Dorsalis Pedis (R), 2+ Left Dors-Pedis (L), 2+ Radial Pulses (R), 2+ Radial Pulses (L) Gastrointestinal: soft, no organomegaly; No distended; tenderness Extremities: normal range of motion, non-tender, no calf tenderness Neurologic/Psychiatric: alert, normal mood/affect, oriented x 3 Skin: normal color, warm/dry Lymphatic: no adenopathy Data Review Labs Laboratory Tests 05/26/19 15:35: Urine Color YELLOW, Urine Clarity CLEAR, Urine pH 6.0, Urine Specific [place] <1.005, Urine Protein NEGATIVE, Urine Glucose (UA) NEGATIVE, Urine Ketones N EGATIVE, Urine Nitrite NEGATIVE, Urine Bilirubin NEGATIVE, Urine Urobilinogen 0.2, Urine Leukocyte Esterase NEGATIVE, Urine RBC (Auto) NEGATIVE, Urine RBC NONE, Urine WBC NONE, Urine Squamous Epithelial Cells RARE, Urine Crystals NONE, Urine Bacteria NONE, Urine Casts NONE, Urine Mucus NEGATIVE, Urine Culture Indicated NO 05/26/19 15:40: White Blood Count 7.8, Red Blood Count 5.06, Hemoglobin 14.5, Hematocrit 46, Mean Corpuscular Volume 91, Mean Corpuscular Hemoglobin 29, Mean Corpuscular Hemoglobin Concent 32, Red Cell Distribution Width 14.9H, Platelet Count 196, Mean Platelet Volume 11.0H, Neutrophils (%) (Auto) 58, Lymphocytes (%) (Auto) 30, Monocytes (%) (Auto) 9, Eosinophils (%) (Auto) 2, Basophils (%) (Auto) 1, Neutrophils # (Auto) 4.6, Lymphocytes # (Auto) 2.4, Monocytes # (Auto) 0.7, Eosinophils # (Auto) 0.1, Basophils # (Auto) 0.0, Sodium Level 136, Potassium Level 4.7, Chloride Level 97L, Carbon Dioxide Level 25, Anion Gap 14, Blood Urea Nitrogen 23H, Creatinine 0.60, Estimat Glomerular Filtration Rate > 60, BUN/Creatinine Ratio 38, Glucose Level 113H, Calcium Level 9.8, Corrected Calcium 9.8, Total Bilirubin 1.5H, Aspartate Amino Transf (AST/SGOT) 92H, Alanine Aminotransferase (ALT/SGPT) 43, Alkaline Phosphatase 132, Total Protein 7.4, Albumin 4.0, Lipase 3000H 05/27/19 04:35: White Blood Count 7.0, Red Blood Count 4.89, Hemoglobin 14.0, Hematocrit 44, Mean Corpuscular Volume 89, Mean Corpuscular Hemoglobin 29, Mean Corpuscular Hemoglobin Concent 32, Red Cell Distribution Width 15.8H, Platelet Count 152, Mean Platelet Volume 11.7H, Neutrophils (%) (Auto) 63, Lymphocytes (%) (Auto) 23, Monocytes (%) (Auto) 12, Eosinophils (%) (Auto) 2, Basophils (%) (Auto) 1, Neutrophils # (Auto) 4.4, Lymphocytes # (Auto) 1.6, Monocytes # (Auto) 0.8, Eosinophils # (Auto) 0.2, Basophils # (Auto) 0.0, Lipase 534H Assessment/Plan Assessment/Plan Assessment/Plan Epigastric/periumbilical abdominal pain Acute pancreatitis Left renal carcinoma with metastases Gastrostomy tube NPO IV pain medication IV hydration Continue to monitor pancreatic enzymes Clinical Quality Measures DVT/VTE Risk/Contraindication: Risk Factor Score Per Nursin RFS Level Per Nursing on Admit: 4+=Very High ALEXANDRA SMITH DO 05/27/192048: History of Present Illness History of Present Illness History of Present Illness Patient is a 68 year old male with left renal cell carcinoma with metastasis to bone (left jaw). He has pain in upper abdomen since last couple days. It continued to worsen to 10/10 and went to ED. Pain was constant sharp pain. and did not move. Nothing seemed to worsen the pain and pain medication did help. He is dependant on gastrostomy tube for nutrition. He was found to have elevated lipase. He had a ct scan that we reviewed no showing any significant findings of the pancreas gallbladder without stones. Denies n/v fever sweats chills shortness of breath or chest pain at this time. Allergies and Home Medications Allergies Coded Allergies: lisinopril (Verified Allergy, Intermediate, 05/05/19) Home Medications Alprazolam 0.25 Mg Tablet, 0.25 MG PO BID, (Reported) Axitinib 5 Mg Tablet, 5 MG PO BID, (Reported) Diphenoxylate HCl/Atropine 1 Each Tablet, 1 EACH PO Q6H Prescribed by: ALLAN PIERCE on 05/06/19 0128 Diphenoxylate HCl/Atropine 1 Each Tablet, 1 TAB PO Q6H PRN for DIARRHEA, (Reported) Famotidine 20 Mg Tablet, 20 MG PO BID, (Reported) Fentanyl 1 Each Patch.td72, 25 MCG TD [id number], (Reported) TOOK PATCH OFF ON 05-26-2019 AND HAS NOT REAPPLIED Losartan Potassium 50 Mg Tablet, 50 MG PO DAILY, (Reported) Ondansetron 8 Mg Tab.rapdis, 8 MG PO Q6H PRN for NAUSEA/VOMITING-1ST LINE, (Reported) Pantoprazole Sodium 40 Mg Tablet.dr, 40 MG PO DAILY, (Reported) Zolpidem Tartrate 10 Mg Tablet, 10 MG PO HS, (Reported) Patient Home Medication List Home Medication List Reviewed: Yes Past Dznifda-Ftfofw-Ixkxeh Hx Patient Social History Alcohol Use: Denies Use Recreational Drug Use: No Type Used: Cigarettes, Smokeless Tobacco Surgeries History of Surgeries: Yes Surgeries: Abdominal (gastrostomy tube, colon resectsion), Orthopedic Respiratory History of Respiratory Disorde: No Cardiovascular Cardiac Disorders: Hypertension Genitourinary History of Genitourinary Disor: Yes (left renal cell carcinoma) Gastrointestinal Gastrointestinal Disorders: Polyps Musculoskeletal History of Musculoskeletal Dis: No Endocrine History of Endocrine Disorders: No Cancer History of Cancer: Yes Cancer: Kidney Psychosocial History of Psychiatric Problem: No Integumentary History of Skin or Integumenta: No Family Medical History Significant Family History: Heart Disease (Father), Cancer (Father, grandfather), Diabetes (Mother) Family Medial History: Alcoholism 19 FATHER Cardiovascular disease 19 FATHER 19 MOTHER G8 SISTER G8 SISTER Diabetes mellitus 19 MOTHER G8 SISTER G8 SISTER FH: pancreatic cancer 19 FATHER Fibromyalgia G8 SISTER Review of Systems-General Gastrointestinal: see HPI, abdominal pain (RUQ), diarrhea; No hematemesis, No nausea, No vomiting Genitourinary: see HPI Musculoskeletal: no symptoms reported Skin: no symptoms reported Psychiatric/Neurological: No Symptoms Reported Physical Exam-General Problems Physical Exam General Appearance: no apparent distress HEENT: PERRL/EOMI Neck: non-tender, full range of motion, supple, other (mass left mandible) Respiratory: chest non-tender, no respiratory distress, no accessory muscle use Cardiovascular: regular rate, rhythm Gastrointestinal: soft, tenderness (epigastric area), other (gastrostomy tube luq) Rectal: deferred Back: normal inspection, no CVA tenderness Extremities: normal range of motion, non-tender Neurologic/Psychiatric: alert, normal mood/affect, oriented x 3 Skin: normal color, warm/dry Lymphatic: no adenopathy Assessment/Plan Assessment/Plan Assessment/Plan Epigastric/periumbilical abdominal pain Acute pancreatitis Left renal carcinoma with metastases Gastrostomy tube Iv fluids pain control get gb u/s to rule out gb disease no surgical intervention at this time will follow follow labs Supervisory-Addendum Brief Verification & Attestation Participated in pt care: history, MDM, physical Personally performed: exam, history, MDM, supervision of care Care discussed with: Medical Student Procedures: n/a Results interpretation: Verified all documentation Verification and Attestation of Medical Student E/M Service A medical student performed and documented this service in my presence. I reviewed and verified all information documented by the medical student and made modifications to such information, when appropriate. I personally performed the physical exam and medical decision making. Alexandra Smith, May 27, 2019,20:53 RUDY HINSON,MED STUDENT May 27, 2019 08:38 ALEXANDRA LAW DO May 27, 2019 20:49 POS
--- NOTE | 2019-05-27 10:03 | NUR ---
Initial visit: The pt shared he is [place] and attends [facility] [employer] [facility] [employer]. He shared his experiences with cancer in the past 6 months, and states he came to the hospital for stomach pain, which is possibly linked to pancreatitis. He became tearful when sharing that his school crossing guard anointed him last night and had prayer with his family at the bedside. He requested that I pray with him for healing. The pt expressed that he had [facility] before this illness, and he believes God is with him now, too.
--- NOTE | 2019-05-27 14:00 | NUR ---
OXANA/ANNE spoke with the patient and his about the advanced directives. Advanced directives were completed by this WENDY and Kortney Lepe Copies were made and put into the chart and given to the family. The family expressed that they did not have any other needs at this time. Addendum: 05/27/19 at 1508 by NATALIYA ROBLES LEMUEL social work student note reviewed and approved.
[2019-05-27] MEDS ORDERED: ALPR0.254 PO (15:06)
[2019-05-27] MEDS ORDERED: AXIT5TAB PO (15:06)
[2019-05-27] MEDS ORDERED: FENT1PAT8 TD (15:06)
[2019-05-27] MEDS ORDERED: ZOLP10TA5 PO (15:06)
[2019-05-27] MEDS ORDERED: PANT40TA3 PO (15:06)
[2019-05-27] MEDS ORDERED: FAMO20TA5 PO (15:06)
[2019-05-27] MEDS ORDERED: DIPH1TAB25 PO (15:06)
[2019-05-27] MEDS ORDERED: LOSA50TA63 PO (15:06)
[2019-05-27] MEDS ORDERED: ONDA8TAB13 PO (15:07)
--- NOTE | 2019-05-27 15:08 | NUR ---
SPOKE WITH PT AND HIS DAUGHTER (THEY HAD A MED LIST) WELL GOING THRU THE EXT MED HISTORY TO COMPLETE THE MED REC. PT AND HIS DAUGHTER WERE ABLE TO TELL ME HOW / WHEN HE TAKES ALL HIS MEDICATIONS AND THEY MATCHED THE EXT MED HISTORY. FENTANYL PATCH WAS REMOVED ON Monday05-26-2019 AND A NEW ONE HAD NOT BEEN APPLIED. INLYTA 5 MG: THIS IS THE PATIENT CANCER TREATMENT MEDICATION, THE DAUGHTER SAYS HE GETS IT THRU MAIL ORDER. THERE WERE NO OTC MEDS TO LIST.
[2019-05-27] MEDS ORDERED: MELATONIN 3 MG TABLET PO PRN (16:00)
[2019-05-27] MEDS ORDERED: ONDANSETRON 4 MG/2 ML (SDV) Z0FRAN IVP PRN (16:00)
--- NOTE | 2019-05-27 16:54 | History & Physical-Hospitalist ---
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 He reports the pain is in his upper, middle abdomen. He describes it as pretty constant and aching. He denies radiation. He says it improves with the pain medicine. He denies nausea and vomiting. He denies fevers and chills. He does not take anything by mouth. 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 He denies chest pain and dyspnea. He denies alcohol use. Source: patient Exam Limitations: no limitations Date Seen 05/27/19 Time Seen by a Provider: 10:00 Attending Physician Brittanie Ferrera MD PCP Parminder Whitlock DO Referring Physician Date of Admission May 26, 2019 at 17:25 Home Medications & Allergies Home Medications Reviewed patient Home Medication Reconciliation performed by pharmacy medication reconciliations plating technician and/or nursing. Patients Allergies have been reviewed. Allergies Allergies Coded Allergies lisinopril (Verified Allergy, Intermediate, 05/05/19) Past Uxasjis-Wrtaxy-Afkvez Hx Past Med/Social Hx: Reviewed Nursing Past Med/Soc Hx Patient Social History Alcohol Use: Denies Use Recreational Drug Use: No Smoking Status: Former Smoker Type Used: Cigarettes, Smokeless Tobacco 2nd Hand Smoke Exposure: No Recent Foreign Travel: No Contact w/other who traveled: No Recent Hopitalizations: Yes Recent Infectious Disease Expo: No Seasonal Allergies Seasonal Allergies: No Past Medical History Surgeries: Abdominal, Orthopedic Cardiac: Hypertension Gastrointestinal: Polyps Cancer: Kidney Did You Recieve Any Treatments: Yes What Type of Treatment Did You: Chemotherapy History of Blood Disorders: No Family History Alcoholism 19 FATHER Cardiovascular disease 19 FATHER 19 MOTHER G8 SISTER G8 SISTER Diabetes mellitus 19 MOTHER G8 SISTER G8 SISTER FH: pancreatic cancer 19 FATHER Fibromyalgia G8 SISTER Heart Disease (Father), Cancer (Father, grandfather), Diabetes (Mother) Review of Systems Constitutional: no symptoms reported EENTM: no symptoms reported Respiratory: no symptoms reported Cardiovascular: no symptoms reported Gastrointestinal: abdominal pain Genitourinary: no symptoms reported Musculoskeletal: no symptoms reported Skin: no symptoms reported Psychiatric/Neurological: No Symptoms Reported Physical Exam Physical Exam Vital Signs Vital Signs - First Documented 05/26/19 15:30 Temp 36.7 Pulse 98 Resp 19 B/P (MAP) 108/84 (92) Pulse Ox 100 O2 Delivery Room Air Capillary Refill : Less Than 3 Seconds Height, Weight, BMI Height: '" Weight: lbs. oz. kg; 21.57 BMI Method: General Appearance: No Apparent Distress, WD/WN HEENT: PERRL/EOMI, Other (left jaw mass) Respiratory: Lungs Clear, Normal Breath Sounds, No Respiratory Distress Cardiovascular: Regular Rate, Rhythm, No Edema, No Murmur Gastrointestinal: Normal Bowel Sounds, Soft, Tenderness (epigastric) Extremity: Normal Inspection, Non Tender, No Pedal Edema Neurologic/Psychiatric: Alert, Oriented x3, Normal Mood/Affect Skin: Normal Color, Warm/Dry Lymphatic: No Adenopathy Results Results/Procedures Labs Laboratory Tests 05/26/19 15:40 05/27/19 04:35 Patient resulted labs reviewed. Imaging: Reviewed Imaging Report Assessment/Plan Admission Diagnosis Acute pancreatitis Admission Status: Inpatient Order (span 2 midnights) Reason for Inpatient Admission: Acute pancreatitis requiring IV pain medications and further evaluation Assessment and Plan Acute pancreatitis -Epigastric pain and elevated lipase -CT Abdomen without peripancreatic inflammation, no gallstones visualized -NPO -Pain regimen ordered -Surgery consulted -Check triglyceride level -Med review revealed Losartan as most likely medication as cause, hold Renal cell carcinoma -Follows at [facility] -Continue Axitinib DVT Prophylaxis: Lovenox Diagnosis/Problems Diagnosis/Problems (1) Pancreatitis, acute Status: Acute Clinical Quality Measures DVT/VTE Risk/Contraindication: Risk Factor Score Per Nursin RFS Level Per Nursing on Admit: 4+=Very High CLINTON LUU MD May 27, 2019 16:54 POS
[2019-05-27] MEDS ORDERED: CATHETER FLUSH 10 ML SYR IV PRN (17:00)
[2019-05-27] MEDS: fentaNYL PATCH 25 MCG (DURAGESIC) TD SCH (17:03)
[2019-05-27] MEDS: ENOXAPARIN 40 MG/0.4 ML (LOVENOX) SYR SC SCH (18:47)
[2019-05-27] MEDS: ZOLPIDEM 5 MG (AMBIEN) TAB PO SCH (20:24)
[2019-05-27] MEDS: ALPRAZolam 0.25 MG (XANAX) TAB PO SCH (20:24)
[2019-05-27] MEDS: PATIENT MAY USE OWN MED,SINGLE MED PO SCH (20:30)
[2019-05-28] MEDS: NS IV 1000 ML 1,000 ML IV SCH (01:53)
[2019-05-28 04:00] VITALS: BP 132/88
[2019-05-28 06:26] LABS: BASOPHILS % (AUTO) 0 % (0-10); EOSINOPHILS # (AUTO) 0.1 10^3/uL (0.0-0.3); EOSINOPHILS % (AUTO) 2 % (0-10); HEMATOCRIT 40 % (40-54); HEMOGLOBIN 12.8 G/DL (13.3-17.7); LYMPHOCYTES # (AUTO) 1.2 X 10^3 (1.0-4.0); LYMPHOCYTES % (AUTO) 23 % (12-44); MEAN CORPUSCULAR HEMOGLOBIN 29 PG (25-34); MEAN CORPUSCULAR HGB CONC 32 G/DL (32-36); MEAN CORPUSCULAR VOLUME 91 FL (80-99); MEAN PLATELET VOLUME 11.5 FL (7.4-10.4); MONOCYTES # (AUTO) 0.6 X 10^3 (0.0-1.0); MONOCYTES % (AUTO) 11 % (0-12); NEUTROPHILS # (AUTO) 3.2 X 10^3 (1.8-7.8); NEUTROPHILS % (AUTO) 63 % (42-75); PLATELET COUNT 145 10^3/uL (130-400); RED CELL DISTRIBUTION WIDTH 15.5 % (10.0-14.5); WHITE BLOOD COUNT 5.1 10^3/uL (4.3-11.0)
--- NOTE | 2019-05-28 06:33 | NUR ---
Received dietary consult for wt loss. Pt was awake and pleasant during consult for MST score and TF. Pt states currently having no appetite. Note pt has PEG tube placed three and a half months ago due to metastasis of CA to jaw, per chart review. Pt states TF regimen of 3 bolus feeds (0800, 1200, 1730) of 1.5 cans of [employer] Peptide, with 60 ml flush before and after each feed. This provides 2250 kcal (33 kcal/kg); 108 g Pro (1.6 g Pro/kg); and 1355 ml free water (with flushes). Pt states no issues with nausea/vomiting at this time. Pt states having some recent issues with diarrhea. Pt states 50# wt loss x7mon. Note unable to determine recent wt hx, per chart review. Given pt's need for enteral nutrition and significant wt loss, pt is at risk for malnutrition per ASPEN guidelines. Would recommend the following TF: Jevity 1.5 at goal rate of 60 ml/hr. Pt has had PEG tube for 3 months and is tolerating well. Begin at 30 ml/hr and increase by 10 ml q6h as tolerated. At goal rate, provides 2160 kcal (32 kcal/kg); 92 g Pro (1.3 g Pro/kg); and 1094 ml free water. Flush with 150 ml H2O q4h. With flushes, provides 1844 ml free water. Will continue to follow and reassess pt as needs and status change. Alexa Hughes, MS, RD, LD
[2019-05-28 06:52] LABS: ALANINE AMINOTRANSFERASE 40 U/L (0-55); ALBUMIN 3.2 GM/DL (3.2-4.5); ALKALINE PHOSPHATASE 113 U/L (40-136); BILIRUBIN,TOTAL 1.1 MG/DL (0.1-1.0); BUN/CREATININE RATIO 34; CALCIUM 8.8 MG/DL (8.5-10.1); CARBON DIOXIDE 22 MMOL/L (21-32); CHLORIDE 107 MMOL/L (98-107); CREATININE SERUM 0.59 MG/DL (0.60-1.30); GFR ESTIMATED > 60; GLUCOSE 63 MG/DL (70-105); POTASSIUM 3.9 MMOL/L (3.6-5.0); SODIUM 139 MMOL/L (135-145); TOTAL PROTEIN 5.8 GM/DL (6.4-8.2)
[2019-05-28 08:30] VITALS: BP 127/64
[2019-05-28] MEDS: PANTOPRAZOLE 40 MG (PROTONIX) TAB PO SCH (08:56)
[2019-05-28] MEDS: ALPRAZolam 0.25 MG (XANAX) TAB PO SCH ×2 (08:56→21:13)
[2019-05-28] MEDS: PATIENT MAY USE OWN MED,SINGLE MED PO SCH ×2 (08:57→21:13)
[2019-05-28] MEDS ORDERED: LOSARTAN 50 MG (COZAAR) TAB PO SCH (09:00)
--- NOTE | 2019-05-28 09:02 | Progress Note - Surgery ---
RUDY HINSON,MED STUDENT 05/28/19 0902: Subjective Date Seen by a Provider: May 28, 2019 Time Seen by a Provider: 06:50 Subjective/Events-last exam Patient seen and examined. He states his abdominal pain is improved from yesterday and rates it a 4/10 now and still nonradiating. Had one bm of diarrhea overnight, and urinated then as well. He is ambulating to the bathroom and back. Having a gallbladder u/s this am, results pending. Objective Exam Vital Signs Date Time Temp Pulse Resp B/P (MAP) Pulse Ox O2 Delivery O2 Flow Rate FiO2 05/28/19 04:00 35.9 107 20 132/88 (103) 96 Room Air 05/27/19 23:51 36.3 95 16 105/71 (82) 96 Room Air 05/27/19 20:00 Room Air 05/27/19 19:37 36.4 122 18 126/82 (97) 98 Room Air 05/27/19 15:28 36.2 108 18 113/70 (84) 97 Room Air 05/27/19 12:38 36.3 95 18 104/62 (76) 95 Room Air I & O 05/28/19 07:00 Intake Total 1000 ml Output Total 300 ml Balance 700 ml Capillary Refill : NONE General Appearance: No Apparent Distress, WD/WN HEENT: PERRL/EOMI, Other (left jaw mass) Neck: Non Tender, Supple Respiratory: Lungs Clear, Normal Breath Sounds, No Respiratory Distress Cardiovascular: Regular Rate, Rhythm, No Edema, No Murmur Peripheral Pulses: 2+ Dorsalis Pedis (R), 2+ Left Dors-Pedis (L), 2+ Radial Pulses (R), 2+ Radial Pulses (L) Gastrointestinal: soft, tenderness (epigastric area), other (gastrostomy tube luq) Extremity: Normal Inspection, Non Tender, No Pedal Edema Neurologic/Psychiatric: Alert, Oriented x3, Normal Mood/Affect Skin: Normal Color, Warm/Dry Lymphatic: No Adenopathy Results Lab Laboratory Tests 05/28/19 05:44: White Blood Count 5.1, Red Blood Count 4.41, Hemoglobin 12.8L, Hematocrit 40, Mean Corpuscular Volume 91, Mean Corpuscular Hemoglobin 29, Mean Corpuscular Hemoglobin Concent 32, Red Cell Distribution Width 15.5H, Platelet Count 145, Mean Platelet Volume 11.5H, Neutrophils (%) (Auto) 63, Lymphocytes (%) (Auto) 23, Monocytes (%) (Auto) 11, Eosinophils (%) (Auto) 2, Basophils (%) (Auto) 0, Neutrophils # (Auto) 3.2, Lymphocytes # (Auto) 1.2, Monocytes # (Auto) 0.6, Eosinophils # (Auto) 0.1, Basophils # (Auto) 0.0, Sodium Level 139, Potassium Le cecy 3.9, Chloride Level 107, Carbon Dioxide Level 22, Anion Gap 10, Blood Urea Nitrogen 20H, Creatinine 0.59L, Estimat Glomerular Filtration Rate > 60, BUN/Creatinine Ratio 34, Glucose Level 63L, Calcium Level 8.8, Corrected Calcium 9.4, Total Bilirubin 1.1H, Aspartate Amino Transf (AST/SGOT) 42H, Alanine Aminotransferase (ALT/SGPT) 40, Alkaline Phosphatase 113, Total Protein 5.8L, A lbumin 3.2 Assessment/Plan Assessment/Plan Assessment/Plan Epigastric/periumbilical abdominal pain Acute pancreatitis Left renal carcinoma with metastases Gastrostomy tube Continue IV hydration and pain control Gallbladder u/s performed this morning, results pending Continue to monitor labs Will discuss possible surgical intervention with patient depending on u/s findings Clinical Quality Measures DVT/VTE Risk/Contraindication: Risk Factor Score Per Nursin RFS Level Per Nursing on Admit: 4+=Very High ALEXANDRA LIMA DO 05/28/19 2030: Subjective Subjective/Events-last exam Pain improved. Minimal at this time. Denies n/v fever sweats chills. Currently NPO. + bm. had u/s demonstrating sludge and thickened wall Objective Exam General Appearance: No Apparent Distress HEENT: PERRL/EOMI Neck: Non Tender, Supple Respiratory: Lungs Clear, Normal Breath Sounds Gastrointestinal: soft, tenderness (epigastric area), other (gastrostomy tube luq) Extremity: Normal Inspection, Non Tender Neurologic/Psychiatric: Alert, Oriented x3, Normal Mood/Affect Skin: Normal Color, Warm/Dry Lymphatic: No Adenopathy Assessment/Plan Assessment/Plan Assessment/Plan Epigastric/periumbilical abdominal pain Acute pancreatitis Left renal carcinoma with metastases Gastrostomy tube With sludge and gallbladder wall thickening will discuss cholecystectomy Await for resolution of current pain/symptoms, sips of clears. Supervisory-Addendum Brief Verification & Attestation Participated in pt care: history, MDM, physical Personally performed: exam, history, MDM, supervision of care Care discussed with: Medical Student Procedures: n/a Results interpretation: Verified all documentation Verification and Attestation of Medical Student E/M Service A medical student performed and documented this service in my presence. I reviewed and verified all information documented by the medical student and made modifications to such information, when appropriate. I personally performed the physical exam and medical decision making. Alexandra Liam, May 28, 2019,20:30 RUDY HINSON,MED STUDENT May 28, 2019 09:02 ALEXANDRA LAW DO May 28, 2019 20:30 POS
--- NOTE | 2019-05-28 09:23 | Diagnostic Imaging Report ---
INDICATION: Abdominal pain TECHNIQUE: Multiple grayscale sonographic images were obtained of the right upper quadrant of the abdomen. CORRELATION STUDY: None FINDINGS: LIVER: There is uniform echotexture within the visualized portions of the liver. Liver size 13 cm. GALLBLADDER: No definitive shadowing gallstones. However, there is a rounded echogenic foci with additional echogenic densities in the gallbladder lumen may reflect sludge ball and/or debris. There is presence of gallbladder wall thickening at 4 mm. COMMON BILE DUCT: Obscured and not well visualized. Overt bile duct dilatation is not suggested. PANCREAS: Obscured by overlying bowel gas RIGHT KIDNEY: Measures 11 cm. No hydronephrosis. AORTA/IVC: Not well visualized. OTHER: None. IMPRESSION: 1. Probable sludge ball and/or debris within the gallbladder lumen. No definitive shadowing gallstones. There is presence of gallbladder wall thickening does raise concern for potential cholecystitis, either acute or chronic. Biliary tree is largely obscured but does not appear to be abnormally dilated. Dictated by: Dictated on workstation # [id number]
[2019-05-28 11:34] VITALS: BP 122/78
--- NOTE | 2019-05-28 11:37 | Progress Note - Hospitalist ---
Subjective HPI/CC On Admission Date Seen by Provider: May 28, 2019 Time Seen by Provider: 09:30 epigastric abdominal pain Subjective/Events-last exam He reports improved abdominal pain. He denies fevers and chills. He denies nausea and vomiting. He denies chest pain and dyspnea. Objective Exam Vital Signs Vital Signs Date Time Temp Pulse Resp B/P (MAP) Pulse Ox O2 Delivery O2 Flow Rate FiO2 05/28/19 08:30 36.2 102 18 127/64 (85) 96 Room Air Capillary Refill : Less Than 3 Seconds General Appearance: No Apparent Distress, WD/WN HEENT: PERRL/EOMI, Other (left jaw mass) Respiratory: Lungs Clear, Normal Breath Sounds, No Respiratory Distress Cardiovascular: Regular Rate, Rhythm, No Edema, No Murmur Gastrointestinal: Normal Bowel Sounds, Soft, Tenderness Extremity: Normal Inspection, Non Tender, No Pedal Edema Neurologic/Psychiatric: Alert, Oriented x3, No Motor/Sensory Deficits, Normal Mood/Affect Skin: Normal Color, Warm/Dry Results/Procedures Lab Laboratory Tests 05/28/19 05:44 Patient resulted labs reviewed. Imaging: Reviewed Imaging Report Assessment/Plan Assessment and Plan Assess & Plan/Chief Complaint Acute pancreatitis -Epigastric pain and elevated lipase -CT Abdomen without peripancreatic inflammation, no gallstones visualized -Pain regimen ordered -Surgery consulted -Triglycerides mildly elevated, not signifiantly enough to cause pancreatitis -Med review revealed Losartan as most likely medication as cause, discontinued -Gallbladder ultrasound with sludge -Remains NPO awaiting surgical plan Renal cell carcinoma -Follows at [facility] -Continue Axitinib DVT Prophylaxis: Lovenox Diagnosis/Problems Diagnosis/Problems (1) Pancreatitis, acute Status: Acute Clinical Quality Measures DVT/VTE Risk/Contraindication: Risk Factor Score Per Nursin RFS Level Per Nursing on Admit: 4+=Very High CLINTON LUU MD May 28, 2019 11:37 POS
[2019-05-28] MEDS: LACTATED RINGERS 1,000 ML IV SCH ×2 (12:20→22:32)
[2019-05-28 15:30] VITALS: BP 116/70
[2019-05-28] MEDS: ENOXAPARIN 40 MG/0.4 ML (LOVENOX) SYR SC SCH (19:45)
[2019-05-28 19:51] VITALS: BP 130/70
[2019-05-28] MEDS: ZOLPIDEM 5 MG (AMBIEN) TAB PO SCH (21:13)
[2019-05-29] VITALS (7 sets, daily range): BP systolic 95–126; BP diastolic 61–80
--- NOTE | 2019-05-29 07:35 | Progress Note - Surgery ---
RUDY HINSON,MED STUDENT 05/29/19 0735: Subjective Date Seen by a Provider: May 29, 2019 Time Seen by a Provider: 07:31 Subjective/Events-last exam Patient seen and examined. He reports improvement in his pain today and says he only has some mild tenderness. He had a bowel movement yesterday but has not yet had one today. Reports no trouble with urination. He has been getting some clears and reports tolerating them well with no nausea. He hasn't ambulated more than to the bathroom and back, but states he thinks he feels well enough to walk the halls and would like to. Objective Exam Vital Signs Date Time Temp Pulse Resp B/P (MAP) Pulse Ox O2 Delivery O2 Flow Rate FiO2 05/29/19 03:20 36.6 101 20 112/68 (83) 94 Room Air 05/29/19 00:03 36.7 95 16 95/61 (72) 96 Room Air 05/28/19 19:51 35.7 91 20 130/70 (90) 97 Room Air 05/28/19 19:50 Room Air 05/28/19 15:30 36.0 99 18 116/70 (85) 96 Room Air 05/28/19 11:34 36.6 100 20 122/78 (93) 95 Room Air 05/28/19 08:30 36.2 102 18 127/64 (85) 96 Room Air 05/28/19 08:00 Room Air I & O 05/29/19 07:00 Intake Total 340 ml Output Total 450 ml Balance -110 ml Capillary Refill : Less Than 3 SecondsLess Than 3 Seconds General Appearance: No Apparent Distress, WD/WN HEENT: PERRL/EOMI; No Scleral Icterus (L), No Scleral Icterus (R) Neck: Non Tender, Supple Respiratory: Lungs Clear, Normal Breath Sounds, No Respiratory Distress Cardiovascular: Regular Rate, Rhythm, No Edema, No Murmur Peripheral Pulses: 2+ Dorsalis Pedis (R), 2+ Left Dors-Pedis (L), 2+ Radial Pulses (R), 2+ Radial Pulses (L) Gastrointestinal: soft; No distended, No guarding; tenderness (epigastric area), other (gastrostomy tube luq) Extremity: Normal Inspection, Non Tender, No Calf Tenderness Neurologic/Psychiatric: Alert, Oriented x3, Normal Mood/Affect Skin: Normal Color, Warm/Dry Lymphatic: No Adenopathy Assessment/Plan Assessment/Plan Assessment/Plan Epigastric/periumbilical abdominal pain Acute pancreatitis Gallbladder with sludge and wall thickening Left renal carcinoma with metastases Gastrostomy tube in place Discussed results of gallbladder u/s with patient and discussed possible surgical intervention NPO after midnight Discontinue Lovenox in preparation for surgery Discussed risks and benefits of the procedure with the patient, and he expressed his understanding. . Clinical Quality Measures DVT/VTE Risk/Contraindication: Risk Factor Score Per Nursin RFS Level Per Nursing on Admit: 4+=Very High ALEXANDRA LIMA DO 05/30/19 0746: Subjective Subjective/Events-last exam feeling better. Minimal discomfort upper abdomen. No other complaints at this time. U/s gallbladder with sludge and minimal gb thickening. Objective Exam General Appearance: No Apparent Distress, WD/WN HEENT: PERRL/EOMI Neck: Normal Inspection, Non Tender Respiratory: Chest Non Tender, No Accessory Muscle Use, No Respiratory Distress Cardiovascular: Regular Rate, Rhythm Gastrointestinal: soft, tenderness (minimal epigastric area), other (gastrostomy tube luq) Extremity: Normal Inspection, Non Tender, No Calf Tenderness Neurologic/Psychiatric: Alert, Oriented x3 Skin: Normal Color, Warm/Dry Lymphatic: No Adenopathy Assessment/Plan Assessment/Plan Assessment/Plan Epigastric/periumbilical abdominal pain Acute pancreatitis Gallbladder with sludge and wall thickening Left renal carcinoma with metastases Gastrostomy tube in place discussed risks and benefits of laparoscopic cholecystectomy intraoperative cholangiogram all other indicated procedures and patient to proceed to or tomorrow npo after midnight. Supervisory-Addendum Brief Verification & Attestation Participated in pt care: history, MDM, physical Personally performed: exam, history, MDM, supervision of care Care discussed with: Medical Student Procedures: n/a Results interpretation: Verified all documentation Verification and Attestation of Medical Student E/M Service A medical student performed and documented this service in my presence. I reviewed and verified all information documented by the medical student and made modifications to such information, when appropriate. I personally performed the physical exam and medical decision making. Alexandra Lima, May 29, 2019,07:46 RUDY HINSON,MED STUDENT May 29, 2019 07:35 ALEXANDAR LAW DO May 30, 2019 07:46 POS
[2019-05-29] MEDS: LACTATED RINGERS 1,000 ML IV SCH ×2 (08:25→18:24)
[2019-05-29] MEDS: PATIENT MAY USE OWN MED,SINGLE MED PO SCH (08:26)
[2019-05-29] MEDS: ALPRAZolam 0.25 MG (XANAX) TAB PO SCH ×2 (08:26→21:45)
[2019-05-29] MEDS: PANTOPRAZOLE 40 MG (PROTONIX) TAB PO SCH (08:26)
[2019-05-29 08:45] LABS: ALANINE AMINOTRANSFERASE 27 U/L (0-55); ALBUMIN 3.2 GM/DL (3.2-4.5); ALKALINE PHOSPHATASE 98 U/L (40-136); BILIRUBIN,TOTAL 1.1 MG/DL (0.1-1.0); BUN/CREATININE RATIO 18; CALCIUM 8.7 MG/DL (8.5-10.1); CARBON DIOXIDE 24 MMOL/L (21-32); CHLORIDE 107 MMOL/L (98-107); CREATININE SERUM 0.56 MG/DL (0.60-1.30); GFR ESTIMATED > 60; GLUCOSE 68 MG/DL (70-105); POTASSIUM 3.7 MMOL/L (3.6-5.0); SODIUM 140 MMOL/L (135-145); TOTAL PROTEIN 5.8 GM/DL (6.4-8.2)
--- NOTE | 2019-05-29 11:48 | Progress Note - Hospitalist ---
Subjective HPI/CC On Admission Date Seen by Provider: May 29, 2019 Time Seen by Provider: 09:10 epigastric abdominal pain Subjective/Events-last exam He reports improved abdominal pain. He denies fevers and chills. He denies nausea and vomiting. He denies chest pain and shortness of breath. Objective Exam Vital Signs Vital Signs Date Time Temp Pulse Resp B/P (MAP) Pulse Ox O2 Delivery O2 Flow Rate FiO2 05/29/19 08:00 36.6 98 20 115/77 (90) 96 Room Air Capillary Refill : Less Than 3 SecondsLess Than 3 Seconds General Appearance: No Apparent Distress, WD/WN HEENT: PERRL/EOMI, Other (left jaw mass) Neck: Normal Inspection, Supple Respiratory: Lungs Clear, Normal Breath Sounds, No Respiratory Distress Cardiovascular: Regular Rate, Rhythm, No Edema, No Murmur Gastrointestinal: Normal Bowel Sounds, Non Tender, Soft, Other (PEG in place) Extremity: Normal Inspection, Non Tender, No Pedal Edema Neurologic/Psychiatric: Alert, Oriented x3, No Motor/Sensory Deficits, Normal Mood/Affect Skin: Normal Color, Warm/Dry Lymphatic: No Adenopathy Results/Procedures Lab Laboratory Tests 05/29/19 08:10 Patient resulted labs reviewed. Imaging: Reviewed Imaging Report Assessment/Plan Assessment and Plan Assess & Plan/Chief Complaint Acute pancreatitis Gallbladder sludge -Continue pain regimen -Surgery consulted -Gallbladder ultrasound with sludge -Start trickle tube feeds, hold at midnight -Plan for cholecystectomy tomorrow Renal cell carcinoma -Follows at [facility] -Continue Axitinib DVT Prophylaxis: SCDs, pharmacologic prophylaxis held for surgery tomorrow Diagnosis/Problems Diagnosis/Problems (1) Pancreatitis, acute Status: Acute (2) Gallbladder sludge Status: Acute Clinical Quality Measures DVT/VTE Risk/Contraindication: Risk Factor Score Per Nursin RFS Level Per Nursing on Admit: 4+=Very High CLINTON LUU MD May 29, 2019 11:48 POS
--- NOTE | 2019-05-29 14:20 | NUR ---
Visited with pt briefly at request of RN. In previous RD note, pt stated using 3 bolus feeds (0800, 1200, 1730) of 1.5 cans of [employer] Peptide, with 60 ml flush before and after each feed. This provides 2250 kcal (33 kcal/kg); 108 g Pro (1.6 g Pro/kg); and 1355 ml free water (with flushes). Pt family states they will bring in this formula product for pt while they are here. TF Recommendations: [employer] Peptide 1.5 at goal rate of 60 ml/hr. Begin at 10 ml/hr and increase by 10 ml q6h as tolerated. At goal rate, provides 2215 kcal (32 kcal/kg); 106 g Pro (1.6 g Pro/kg); and 979 ml free water. Flush with 125 ml H2O q4h. With flushes, provides 1729 ml free water. Will continue to follow and reassess pt as needs and status change. Alexa Hughes, MS, RD, LD
[2019-05-29] MEDS: ZOLPIDEM 5 MG (AMBIEN) TAB PO SCH (21:45)
[2019-05-30] VITALS (11 sets, daily range): BP systolic 120–149; BP diastolic 74–95
[2019-05-30] MEDS: PATIENT MAY USE OWN MED,SINGLE MED PO SCH ×2 (02:40→11:35)
[2019-05-30] MEDS: LACTATED RINGERS 1,000 ML IV SCH ×2 (05:47→14:35)
[2019-05-30] MEDS ORDERED: IOPAMIDOL 61% 30 ML (ISOVUE 300) VIAL IV ONE (08:16)
[2019-05-30] MEDS ORDERED: BUP/EPI 0.5% 1:200,000 (SENSORCAINE) 30 ML VIAL ONE (08:16)
[2019-05-30] MEDS ORDERED: ceFAZolin INJECTION 1,000 MG ONE (08:57)
[2019-05-30] MEDS ORDERED: ROCURONIUM 10 MG/ML 5 ML SYRINGE IV ONE (09:00)
[2019-05-30] MEDS ORDERED: SEVOFLURANE (ULTANE) 15 ML INHAL SOLN ONE ×2 (09:00→10:12)
[2019-05-30] MEDS ORDERED: LIDOCAINE PF 2% 5 ML (XYLOCAINE) VIAL ONE (09:00)
[2019-05-30] MEDS ORDERED: proPOfol 200 MG/20 ML (DIPRIVAN) VIAL IV ONE (09:00)
[2019-05-30] MEDS ORDERED: MIDAZOLAM 2 MG/2 ML (VERSED) VIAL ONE (09:01)
[2019-05-30] MEDS ORDERED: fentaNYL INJECTION 100 MCG/2 ML AMP ONE (09:01)
[2019-05-30] MEDS ORDERED: DEXAMETHASONE 10 MG/ML (DECADRON) 1 ML VIAL ONE (09:32)
[2019-05-30] MEDS ORDERED: LACTATED RINGERS 1,000 ML IV PRN (09:38)
[2019-05-30] MEDS ORDERED: GLYCOPYRROLATE 0.2 MG/ML (ROBINUL) 2 ML VIAL ONE (10:00)
[2019-05-30] MEDS ORDERED: NEOSTIGMINE 3 MG/3 ML VIAL ONE (10:00)
--- NOTE | 2019-05-30 10:00 | Progress Note-Post Operative ---
Post-Operative Progess Note Surgeon (s)/Grain Broker (s) Surgeon ALEXANDRA SMITH DO Grain Broker: Dr. An Pre-Operative Diagnosis cholelithiasis, cholecystitis Post-Operative Diagnosis same Procedure & Operative Findings Date of Procedure 05/30/19 Procedure Performed/Findings lap skyler c ioc Anesthesia Type gen Estimated Blood Loss Estimated blood loss (mL): min Specimens/Packing Specimens Removed gallbladder ALEXANDRA SMITH DO May 30, 2019 10:00 POS
[2019-05-30] MEDS ORDERED: morphine INJ 10 MG/ML 1ML (SYR OR VIAL) ONE (10:20)
[2019-05-30] MEDS ORDERED: MEPERIDINE (DEMEROL) INJ 50 MG/ML IVP ONE (10:30)
[2019-05-30] MEDS ORDERED: PROMETHAZINE INJ 25 MG/ML (PHENERGAN) AMP IVP ONE (10:30)
[2019-05-30] MEDS ORDERED: morphine INJ 10 MG/ML 1ML (SYR OR VIAL) IVP ONE (10:30)
[2019-05-30] MEDS ORDERED: HYDROmorphone 2 MG/ML VIAL (DILAUDID) IV ONE (10:30)
[2019-05-30] MEDS ORDERED: ONDANSETRON 4 MG/2 ML (SDV) Z0FRAN IVP PRN (10:30)
--- NOTE | 2019-05-30 10:38 | Diagnostic Imaging Report ---
INDICATION: Fluoroscopy for intraoperative cholangiogram. The patient did have gallbladder wall thickening and gallbladder sludge. Fluoroscopy was provided for Dr. Lima during intraoperative cholangiogram. 10 seconds of fluoroscopic time was utilized. Images demonstrate contrast being injected via the cystic duct remnant. There is a circumscribed rounded filling defect in the distal common bile duct, suggestive of a retained stone. Contrast does pass beyond the filling defect into the duodenum. IMPRESSION: Fluoroscopy for intraoperative cholangiogram. There is a filling defect within the common duct, suggestive of a retained stone. Dictated by: Dictated on workstation # [id number]
[2019-05-30] MEDS: PANTOPRAZOLE 40 MG (PROTONIX) TAB PO SCH (11:28)
[2019-05-30] MEDS: ALPRAZolam 0.25 MG (XANAX) TAB PO SCH (11:28)
--- NOTE | 2019-05-30 11:36 | NUR ---
orders to hold chemo med till f/u appointment (Dr. VILLEGAS )- slows wound healing they will address on f/u appointment on the 10 June
--- NOTE | 2019-05-30 13:17 | Anesthesia-General Post-Op ---
General Patient Condition Mental Status/LOC: Same as Preop Cardiovascular: Satisfactory Nausea/Vomiting: Absent Respiratory: Satisfactory Pain: Controlled Complications: Absent Post Op Complications Complications None Follow Up Care/Instructions Patient Instructions None needed. Anesthesia/Patient Condition Patient Condition Patient is doing well, no complaints, stable vital signs, no apparent adverse anesthesia problems. No complications reported per nursing. JAYSHREE ALVARADO CRNA May 30, 2019 13:17 POS
[2019-05-30] MEDS ORDERED: HYDR-3812 PO (16:27)
--- NOTE | 2019-05-30 16:33 | Discharge Summary ---
Discharge Summary Hospital Course Was the Problem List Reviewed?: Yes Problems/Dx: (1) Pancreatitis, acute Status: Acute Qualifiers: (2) Gallbladder sludge Status: Acute Hospital Course Date of Admission: May 26, 2019 at 17:25 Admission Diagnosis : Acute pancreatitis Family Physician/Provider: Parminder Whitlock DO Date of Discharge: 05/30/19 Discharge Diagnosis: Acute pancreatitis due to gallbladder sludge Hospital Course: Segundo Keller is a 68yoM with metastatic renal cell carcinoma who presented with abdominal pain and was admitted with acute pancreatitis. Workup revealed gallbladder sludge and surgery performed a laparoscopic cholecystectomy once his pancreatitis resolved. His Losartan was discontinued as this may have been the culprit in his pancreatitis. He has Hydrocodone at home which he will use for his acute surgery-associated pain. He will hold his chemotherapy medication until his follow up with his oncologist. Labs and Pending Lab Test: Home Meds Active Hydrocodone-Acetamin 5-325 mg (Hydrocodone/Acetaminophen) 1 Each Tablet 1-2 Tab PO Q6H 7 Days Lomotil 2.5-0.025 mg Tablet (Diphenoxylate HCl/Atropine) 1 Each Tablet 1 Each PO Q6H Reported Ondansetron Odt (Ondansetron) 8 Mg Tab.rapdis 8 Mg PO Q6H PRN Inlyta (Axitinib) 5 Mg Tablet 5 Mg PO BID Losartan Potassium 50 Mg Tablet 50 Mg PO DAILY Pantoprazole Sodium 40 Mg Tablet.dr 40 Mg PO DAILY Zolpidem Tartrate 10 Mg Tablet 10 Mg PO HS Diphenoxylate-Atrop 2.5-0.025 (Diphenoxylate HCl/Atropine) 1 Each Tablet 1 Tab PO Q6H PRN Alprazolam 0.25 Mg Tablet 0.25 Mg PO BID Famotidine 20 Mg Tablet 20 Mg PO BID Fentanyl Patch 25 MCG (Fentanyl) 1 Each Patch.td72 25 Mcg TD [id number] TOOK PATCH OFF ON 05-26-2019 AND HAS NOT REAPPLIED Assessment/Pt Instructions Take medications as prescribed. Stop taking Losartan. Begin using Hydrocodone for pain associated with gallbladder surgery. Hold your chemotherapy medicine until follow up with your oncologist. Discharge Planning: <30 minutes discharge planning Discharge Instructions Discharge Diet: No Restrictions Activity as Tolerated: Yes Consultations Surgery Discharge Physical Examination Vital Signs Vital Signs Date Time Temp Pulse Resp B/P (MAP) Pulse Ox O2 Delivery O2 Flow Rate FiO2 05/30/19 16:14 36.7 98 16 132/74 (93) 96 Room Air 05/30/19 10:50 3 General Appearance: No Apparent Distress, WD/WN HEENT: PERRL/EOMI, Other (left jaw mass) Respiratory: Lungs Clear, Normal Breath Sounds, No Respiratory Distress Cardiovascular: Regular Rate, Rhythm, No Edema, No Murmur Gastrointestinal: Soft, Abnormal Bowel Sounds (hypoactive), Tenderness, Other (laparoscopy incisions) Extremity: Normal Inspection, Non Tender, No Pedal Edema Skin: Normal Color, Warm/Dry Neurologic/Psychiatric: Alert, Oriented x3, No Motor/Sensory Deficits, Normal Mood/Affect Allergies: Coded Allergies: lisinopril (Verified Allergy, Intermediate, 05/05/19) Discharge Summary Date of Admission May 26, 2019 at 17:25 Date of Discharge Discharge Date: May 30, 2019 Discharge Time: 16:30 Admission Diagnosis Acute pancreatitis Consults/Procedures Consulations Surgery Procedures Laparoscopic cholecystectomy Discharge Diagnosis Acute pancreatitis, Gallbladder sludge (1) Pancreatitis, acute Status: Acute Qualifiers: (2) Gallbladder sludge Status: Acute Clinical Quality Measures DVT/VTE Risk/Contraindication: Risk Factor Score Per Nursin RFS Level Per Nursing on Admit: 4+=Very High CLINTON LUU MD May 30, 2019 16:33 POS
[2019-05-30] MEDS ORDERED: HYDROcodone/APAP 5 MG/325 MG (LORTAB) TAB ONE (16:43)
[2019-05-30] MEDS: fentaNYL PATCH 25 MCG (DURAGESIC) TD SCH (16:47)
[2019-05-30] MEDS ORDERED: FENTANYL PATCH REMOVAL TP SCH (16:59)
--- NOTE | 2019-05-30 19:21 | OPERATIVE REPORT ---
DATE OF SERVICE: 05/30/2019 PREOPERATIVE DIAGNOSES: Cholelithiasis, cholecystitis. POSTOPERATIVE DIAGNOSES: Cholelithiasis, cholecystitis. PROCEDURE: Laparoscopic cholecystectomy with intraoperative cholangiogram. SURGEON: Joseph Lima DO [employer] LAW CLERK: Dr. An, assisted in retraction, dissection and closure. ANESTHESIA: General. ESTIMATED BLOOD LOSS: Minimal. COMPLICATIONS: None. INDICATIONS: The patient is a 68-year-old male who had epigastric abdominal pain, pancreatitis. A gallbladder ultrasound demonstrating some gallbladder sludge; and there is gallbladder wall thickening. He understands risks and benefits of procedure and wished to proceed with procedure. Consent was signed in the chart. DESCRIPTION OF PROCEDURE: The patient was taken to the operating suite, prepped and draped in sterile fashion. Timeout was performed. Local anesthetic was infiltrated just above the umbilicus. An 11 blade scalpel was used to make a small skin incision. Cautery was used to dissect down to the fascia, which was then scored, grasped and elevated. The abdomen was entered. An 0 Vicryl was placed in a [id number] fashion for closure at the end of the case. Balloon trocar was inserted and pneumoperitoneum was achieved. Under direct visualization of the laparoscope, a 5 mm trocar was placed in the subxiphoid region and two 5 mm trocars were placed in the right upper quadrant. Gallbladder was grasped and elevated. Some small adhesions to the gallbladder were then taken down. The cystic duct and cystic artery were then dissected out. Clips were placed on the proximal and distal portion of the cystic artery and the distal portion of the cystic duct. The duct was then partially transected. Arrow catheter was inserted in the duct and cholangiogram was performed. There were no filling defects. Contrast made its way into the duodenum without difficulty. The catheter was then removed. Clips were placed on the proximal portion of the cystic duct and the duct and the artery were then completely transected. Hook cautery was used to dissect the gallbladder from the gallbladder fossa achieving hemostasis. Once removed, it was placed in an Endobag and removed through the 12 mm trocar site. The trocar was then placed back in the abdomen. The abdomen was then irrigated and suctioned. Hemostasis was achieved. The stomach was stuck up to the abdominal wall consistent with the gastrostomy tube he has. No other pathology noted. The abdomen was then desufflated, the trocars were removed. The 0 Vicryl that was placed in a [id number] fashion was used to close the defect of the 12 mm trocar site. The skin was then closed using 4-0 Monocryl in subcuticular fashion. The abdomen was washed and dried and Skin Affix was placed over the incisions. The patient tolerated procedure well without any complications, taken to recovery room in stable condition. Job ID: [id number] DocumentID: [id number] Dictated Date: 05/30/2019 17:08:32 [employer] Worker Date: 05/30/2019 19:20:03 Dictated By: DO COLT ACEVES
== END 2019-05-30 18:12 | disposition home or self-care (01) | DRG 417 ==
LOC: EDUNIT# 15:21 → ER FS 15:23 → 4TH 17:25
PROVIDERS: ADMIT Family Medicine; ATTEND Family Medicine
PROC: 0FT44ZZ Resection of Gallbladder, Percutaneous Endoscopic Approach (ICD-10-PCS; principal; 2019-05-30 09:05)
DX: K80.00 Calculus of gallbladder with acute cholecystitis without obstruction (principal); K85.90 Acute pancreatitis without necrosis or infection, unspecified; C64.2 Malignant neoplasm of left kidney, except renal pelvis; C79.51 Secondary malignant neoplasm of bone; G89.3 Neoplasm related pain (acute) (chronic); I10 Essential (primary) hypertension; R19.7 Diarrhea, unspecified; Z93.1 Gastrostomy status; Z92.21 Personal history of antineoplastic chemotherapy; Z90.49 Acquired absence of other specified parts of digestive tract; Z86.010 Personal history of colon polyps; Z87.891 Personal history of nicotine dependence
CPT/HCPCS: 36415; 74177; 76705; 80053; 81000; 83690; 84478; 85025; 87081; 96374

== ENCOUNTER 2019-11-20 08:34 | Emergency (ER) | payer BC, MEDICARE ==
[~2019-11-20] VITALS: Ht 180.3 cm; Wt 80.9 kg
[~2019-11-20 08:34] MED LIST changes: +ACHD5005 PO; +ALPR0.254 PO; +AXIT5TAB PO; +DIPH1TAB25 PO; +FAMO20TA5 PO; +FENT1PAT8 TD; +LOSA50TA63 PO; +PANT40TA3 PO; +ZOLP10TA5 PO
--- OUTSIDE RECORDS SUMMARY | 2019-11-20 08:42 | XMS REPORT | Continuity of Care Document ---
Author Organization Unknown Address Unknown Phone Unavailable Allergies Active Description Code Type Severity Reaction Onset Reported/Identified Relationship to Patient Clinical Status Yes lisinopril [id number] Drug Allerg y Moderate N/A 05/05/2019 Medications There is no data. Problems Date Dx Coded Attending Type Code Diagnosis Diagnosed By 09/28/2018 SIS ROBB, TAISHA Rubin Ot R20.0 ANESTHESIA OF SKIN 04/17/2019 DEVORAH SMITH Ot M17.11 UNILATERAL PRIMARY OSTEOARTHRITIS, RIGHT 05/06/2019 KARI DO, ALLAN K Ot C64.2 MALIGNANT NEOPLASM OF LEFT KIDNEY, EXCEP 05/06/2019 KARI DO, ALLAN K Ot C79.51 SECONDARY MALIGNANT NEOPLASM OF BONE 05/06/2019 KARI DO, ALLAN K Ot I10 ESSENTIAL (PRIMARY) HYPERTENSION 05/06/2019 KARI DO, ALLAN K Ot K59.00 CONSTIPATION, UNSPECIFIED 05/06/2019 KARI DO, ALLAN K Ot R11.0 NAUSEA 05/06/2019 KARI DO, ALLAN K Ot R19.7 DIARRHEA, UNSPECIFIED 05/06/2019 KARI DO, ALLAN K Ot Z87.891 PERSONAL HISTORY OF NICOTINE DEPENDENCE 05/06/2019 KARI DO, ALLAN K Ot Z88.8 ALLERGY STATUS TO OTH DRUG/MEDS/BIOL SUB 05/06/2019 SIS ROBB, TAISHA K Ot R20.0 ANESTHESIA OF SKIN 05/06/2019 DEVORAH SMITH Ot M17.11 UNILATERAL PRIMARY OSTEOARTHRITIS, RIGHT 05/08/2019 KARI DO, ALLAN K Ot C64.2 MALIGNANT NEOPLASM OF LEFT KIDNEY, EXCEP 05/08/2019 KARI DO, ALLAN K Ot C79.51 SECONDARY MALIGNANT NEOPLASM OF BONE 05/08/2019 KARI DO, ALLAN K Ot I10 ESSENTIAL (PRIMARY) HYPERTENSION 05/08/2019 KARI DO, ALLAN K Ot K59.00 CONSTIPATION, UNSPECIFIED 05/08/2019 KARI DO, ALLAN K Ot R11.0 NAUSEA 05/08/2019 KARI DO, ALLAN K Ot R19.7 DIARRHEA, UNSPECIFIED 05/08/2019 KARI DO, ALLAN K Ot Z87.891 PERSONAL HISTORY OF NICOTINE DEPENDENCE 05/08/2019 KARI DO, ALLAN K Ot Z88.8 ALLERGY STATUS TO OTH DRUG/MEDS/BIOL SUB 05/08/2019 DEVORAH SMITH SENIOR PRODUCER Ot M17.11 UNILATERAL PRIMARY OSTEOARTHRITIS, RIGHT 05/29/2019 GENO HAWLEY MD Ot C64. 2 MALIGNANT NEOPLASM OF LEFT KIDNEY, EXCEP 05/29/2019 GENO HAWLEY MD, Ot C79. 51 SECONDARY MALIGNANT NEOPLASM OF BONE 05/29/2019 GENO HAWLEY MD, Ot G89. 3 NEOPLASM RELATED PAIN (ACUTE) (CHRONIC) 05/29/2019 GENO HAWLEY MD, Ot I10 ESSENTIAL (PRIMARY) HYPERTENSION 05/29/2019 GENO HAWLEY MD, Ot K85. 90 ACUTE PANCREATITIS WITHOUT NECROSIS OR I 05/29/2019 GENO HAWLEY MD, Ot R19. 7 DIARRHEA, UNSPECIFIED 05/29/2019 GENO HAWLEY MD, Ot Z86.010 PERSONAL HISTORY OF COLONIC POLYPS 05/29/2019 GENO HAWLEY MD, Ot Z87.891 PERSONAL HISTORY OF NICOTINE DEPENDENCE 05/29/2019 GENO HAWLEY MD Ot Z90. 49 ACQUIRED ABSENCE OF OTHER SPECIFIED PART 05/29/2019 GENO HAWLEY MD Ot Z92. 21 PERSONAL HISTORY OF ANTINEOPLASTIC CHEMO 05/29/2019 GENO HAWLEY MD Ot Z93. 1 GASTROSTOMY STATUS 05/30/2019 KARI DO, ALLAN K Ot C64.2 MALIGNANT NEOPLASM OF LEFT KIDNEY, EXCEP 05/30/2019 KARI DO, ALLAN K Ot C79.51 SECONDARY MALIGNANT NEOPLASM OF BONE 05/30/2019 KARI DO, ALLAN K Ot I10 ESSENTIAL (PRIMARY) HYPERTENSION 05/30/2019 KARI DO, ALLAN K Ot K59.00 CONSTIPATION, UNSPECIFIED 05/30/2019 KARI DO, ALLAN K Ot R11.0 NAUSEA 05/30/2019 KARI DO, ALLAN K Ot R19.7 DIARRHEA, UNSPECIFIED 05/30/2019 KARI DO, ALLAN K Ot Z87.891 PERSONAL HISTORY OF NICOTINE DEPENDENCE 05/30/2019 KARI SMITH, ALLAN Scottie Ot Z88.8 ALLERGY STATUS TO OTH DRUG/MEDS/BIOL SUB 05/30/2019 GENO HAWLEY MD, Ot C64. 2 MALIGNANT NEOPLASM OF LEFT KIDNEY, EXCEP 05/30/2019 GENO HAWLEY MD, Ot C79. 51 SECONDARY MALIGNANT NEOPLASM OF BONE 05/30/2019 GENO HAWLEY MD, Ot G89. 3 NEOPLASM RELATED PAIN (ACUTE) (CHRONIC) 05/30/2019 GENO HAWLEY MD Ot I10 ESSENTIAL (PRIMARY) HYPERTENSION 05/30/2019 GENO HAWLEY MD, Ot K85. 90 ACUTE PANCREATITIS WITHOUT NECROSIS OR I 05/30/2019 GENO HAWLEY MD, Ot R19. 7 DIARRHEA, UNSPECIFIED 05/30/2019 GENO HAWLEY MD, Ot Z86.010 PERSONAL HISTORY OF COLONIC POLYPS 05/30/2019 GENO HAWLEY MD, Ot Z87.891 PERSONAL HISTORY OF NICOTINE DEPENDENCE 05/30/2019 GENO HAWLEY MD, Ot Z90. 49 ACQUIRED ABSENCE OF OTHER SPECIFIED PART 05/30/2019 GENO HAWLEY MD Ot Z92. 21 PERSONAL HISTORY OF ANTINEOPLASTIC CHEMO 05/30/2019 GENO HAWLEY MD, Ot Z93. 1 GASTROSTOMY STATUS 05/30/2019 GENO HAWLEY MD, Ot C64. 2 MALIGNANT NEOPLASM OF LEFT KIDNEY, EXCEP 05/30/2019 GENO HAWLEY MD, Ot C79. 51 SECONDARY MALIGNANT NEOPLASM OF BONE 05/30/2019 GENO HAWLEY MD, Ot G89. 3 NEOPLASM RELATED PAIN (ACUTE) (CHRONIC) 05/30/2019 GENO HAWLEY MD Ot I10 ESSENTIAL (PRIMARY) HYPERTENSION 05/30/2019 GENO HAWLEY MD Ot K80. 00 CALCULUS OF GALLBLADDER W ACUTE CHOLECYS 05/30/2019 GENO HAWLEY MD Ot K85. 90 ACUTE PANCREATITIS WITHOUT NECROSIS OR I 05/30/2019 GENO HAWLEY MD Ot R19. 7 DIARRHEA, UNSPECIFIED 05/30/2019 GENO HAWLEY MD Ot Z86.010 PERSONAL HISTORY OF COLONIC POLYPS 05/30/2019 GENO HAWLEY MD, Ot Z87.891 PERSONAL HISTORY OF NICOTINE DEPENDENCE 05/30/2019 GENO HAWLEY MD, Ot Z90. 49 ACQUIRED ABSENCE OF OTHER SPECIFIED PART 05/30/2019 GENO HAWLEY MD, Ot Z92. 21 PERSONAL HISTORY OF ANTINEOPLASTIC CHEMO 05/30/2019 GENO HAWLEY MD, Ot Z93. 1 GASTROSTOMY STATUS Procedures Code Description Performed By Per formed On [id number] RE SECTION OF GALLBLADDER, PERCUTANEOUS E 05/30/2019 Results Test Result Range Complete blood count (CBC) with automate d white blood cell (WBC) differential - 05/05/19 22:58 Blood leukocytes automated count (number/volume) 11.6 10*3/uL 4.3-11.0 Blood erythrocytes automated count (number/volume) 4.91 10*6/uL 4.35-5.85 Venous blood hemoglobin measurement (mass/volume) 14.8 g/dL 13.3-17.7 Blood hematocrit (volume fraction) 44 % 40-54 Automated erythrocyte mean corpuscular volume 90 [ foz_us] 80-99 Automated erythrocyte mean corpuscular h emoglobin (mass per erythrocyte) 30 pg 25-34 Automated erythrocyte mean corpuscular h emoglobin concentration measurement (mass/volume) 34 g/dL 32-36 Automated erythrocyte distribution width ratio 16. 1 % 10.0- 14.5 Automated blood platelet count (count/volume) 170 10*3/uL 130-400 Automated blood platelet mean volume measurement 11.0 [foz_us] 7.4-10.4 Automated blood neutrophils/100 leukocytes 65 % 42-75 Automated blood lymphocytes/100 leukocytes 22 % 12-44 Blood monocytes/100 leukocytes 12 % 0-12 Automated blood eosinophils/100 leukocytes 2 % 0-10 Automated blood basophils/100 leukocytes 0 % 0-10 Blood neutrophils automated count (number/volume) 7.5 10*3 1.8-7.8 Blood lymphocytes automated count (number/volume) 2.5 10*3 1.0-4.0 Blood monocytes automated count (number/volume) 1. 3 10*3 0.0-1.0 Automated eosinophil count 0.2 10*3/uL 0 .0-0.3 Automated blood basophil count (count/volume) 0.0 10*3/uL 0.0-0.1 PT panel in platelet poor plasma by coag ulation assay - 05/05/19 22:58 Prothrombin time (PT) in platelet poor plasma by coagu lation assay 15.9 s 12.2-14.7 INR in platelet poor plasma or blood by coagulation as say 1.2 0.8-1.4 Activated partial thromboplastin time (a PTT) in platelet poor plasma bycoagulation assay - 05/05/19 22:58 Activated partial thromboplastin time (a PTT) in platelet poor plasma bycoagulation assay 36 s 24-35 Comprehensive metabolic panel - 05/05/19 22:58 Serum or plasma sodium measurement (moles/volume) 134 mmol/L 135-145 Serum or plasma potassium measurement (moles/volume) 4.8 mmol/L 3.6-5.0 Serum or plasma chloride measurement (moles/volume) 101 mmol/L 98-107 Carbon dioxide 22 mmol/L 21-32 Serum or plasma anion gap determination (moles/volume) 11 mmol/L 5-14 Serum or plasma urea nitrogen measurement (mass/volume ) 28 mg/dL 7-18 Serum or plasma creatinine measurement (mass/volume) 0.66 mg/dL 0.60-1.30 Serum or plasma urea nitrogen/creatinine mass ratio 42 NRG Serum or plasma creatinine measurement w ith calculation of estimated glomerular filtration rate > NRG Serum or plasma glucose measurement (mass/volume) 104 mg/dL 70-105 Serum or plasma calcium measurement (mass/volume) 9.0 mg/dL 8.5-10.1 Serum or plasma total bilirubin measurement (mass/volu me) 1.0 mg/dL 0.1-1.0 Serum or plasma alkaline phosphatase tressa surement (enzymatic activity/volume) 102 U/L 40-136 Serum or plasma aspartate aminotransfera se measurement (enzymatic activity/volume) 39 U/L 5-34 Serum or plasma alanine aminotransferase measurement (enzymatic activity/volume) 23 U/L 0-55 Serum or plasma protein measurement (mass/volume) 7.2 g/dL 6.4-8.2 Serum or plasma albumin measurement (mass/volume) 3.7 g/dL 3.2-4.5 CALCIUM CORRECTED 9.2 mg/dL 8.5-10.1 Magnesium - 05/05/19 22:58 Magnesium 2.1 mg/dL 1.6-2.4 Serum or plasma amylase measurement (enz ymatic activity/volume) - 05/05/19 22:58 Serum or plasma amylase measurement (enzymatic activit y/volume) 49 U/L 25-125 Lipase - 05/05/19 22:58 Lipase 45 U/L 8-78 Blood lactic acid measurement (moles/vol ume) - 05/05/19 23:06 Blood lactic acid measurement (moles/volume) 1.53 mmol/L 0.50-2.00 Bacterial blood culture - 05/05/19 23:06 Bacterial blood culture NG NRG Bacterial blood culture - 05/05/19 23:07 Bacterial blood culture NG NRG Complete urinalysis with reflex to cultu re - 05/05/19 23:09 Urine color determination YELLOW NRG Urine clarity determination CLEAR NR G Urine pH measurement by test strip 5 5-9 Specific gravity of urine by test strip 1.010 1.016-1.022 Urine protein assay by test strip, semi-quantitative 1+ NEGATIVE Urine glucose detection by automated test strip NE GATIVE NEGATIVE Erythrocytes detection in urine sediment by light micr oscopy NEGATIVE NEGATIVE Urine ketones detection by automated test strip NE GATIVE NEGATIVE Urine nitrite detection by test strip NEGATIVE NEGATIVE Urine total bilirubin detection by test strip NEGA TIVE NEGATIVE Urine urobilinogen measurement by automated test strip (mass/volume) NORMAL NORMAL Urine leukocyte esterase detection by dipstick 1+ NEGATIVE Automated urine sediment erythrocyte cou nt by microscopy (number/high power field) NONE NRG Automated urine sediment leukocyte count by microscopy (number/high power field) RARE NRG Bacteria detection in urine sediment by light microsco py NEGATIVE NRG Squamous epithelial cells detection in u rine sediment by light microscopy 0-2 NRG Crystals detection in urine sediment by light microsco py NONE NRG Casts detection in urine sediment by light microscopy NONE NRG Mucus detection in urine sediment by light microscopy SMALL NRG Complete urinalysis with reflex to culture CULTURE PENDING NRG Bacterial urine culture - 05/05/19 23:09 Bacterial urine culture [id number] NRG COLONY COUNT 10,000 CFU/ML NRG FTX;REPORTABLE SUSCEPTIBILITY REPORTED 05/08 09:15 NRG FREE TEXT ENTRY 2 NEW NOMENCLATURE IS N RG FREE TEXT ENTRY 3 KLEBSIELLA AEROGENES NRG Dirithromycin susceptibility test by dis k diffusion - 05/05/19 23:09 Gentamicin susceptibility test by minimum inhibitory c oncentration <= NRG Trimethoprim/sulfamethoxazole susceptibi lity test by minimum inhibitoryconcentration <= NRG Levofloxacin susceptibility test by minimum inhibitory concentration <= NRG Ampicillin susceptibility test by minimum inhibitory c oncentration > NRG Cefazolin susceptibility test by minimum inhibitory co ncentration > NRG Ceftriaxone susceptibility test by minimum inhibitory concentration 16 NRG Ciprofloxacin susceptibility test by minimum inhibitor y concentration <= NRG Meropenem susceptibility test by minimum inhibitory co ncentration <= NRG Nitrofurantoin susceptibility test by mi nimum inhibitory concentration 32 NRG Cefepime susceptibility test by minimum inhibitory con centration <= NRG Amoxicillin and clavulanate potassium susc BERTHA > NRG Complete urinalysis with reflex to cultu re - 05/26/19 15:35 Urine color determination YELLOW NRG Urine clarity determination CLEAR NR G Urine pH measurement by test strip 6.0 5-9 Specific gravity of urine by test strip < 1.016-1.022 Urine protein assay by test strip, semi-quantitative NEGATIVE NEGATIVE Urine glucose detection by automated test strip NE GATIVE NEGATIVE Erythrocytes detection in urine sediment by light micr oscopy NEGATIVE NEGATIVE Urine ketones detection by automated test strip NE GATIVE NEGATIVE Urine nitrite detection by test strip NEGATIVE NEGATIVE Urine total bilirubin detection by test strip NEGA TIVE NEGATIVE Urine urobilinogen measurement by automated test strip (mass/volume) 0.2 mg/dL < = 1.0 Urine leukocyte esterase detection by dipstick NEG ATIVE NEGATIVE Automated urine sediment erythrocyte cou nt by microscopy (number/high power field) NONE NRG Automated urine sediment leukocyte count by microscopy (number/high power field) NONE NRG Bacteria detection in urine sediment by light microsco py NONE NRG Squamous epithelial cells detection in u rine sediment by light microscopy RARE NRG Crystals detection in urine sediment by light microsco py NONE NRG Casts detection in urine sediment by light microscopy NONE NRG Mucus detection in urine sediment by light microscopy NEGATIVE NRG Complete urinalysis with reflex to culture NO NRG Complete blood count (CBC) with automate d white blood cell (WBC) differential - 05/26/19 15:40 Blood leukocytes automated count (number/volume) 7.8 10*3/uL 4.3-11.0 Blood erythrocytes automated count (number/volume) 5.06 10*6/uL 4.35-5.85 Venous blood hemoglobin measurement (mass/volume) 14.5 g/dL 13.3-17.7 Blood hematocrit (volume fraction) 46 % 40-54 Automated erythrocyte mean corpuscular volume 91 [ foz_us] 80-99 Automated erythrocyte mean corpuscular h emoglobin (mass per erythrocyte) 29 pg 25-34 Automated erythrocyte mean corpuscular h emoglobin concentration measurement (mass/volume) 32 g/dL 32-36 Automated erythrocyte distribution width ratio 14. 9 % 10.0- 14.5 Automated blood platelet count (count/volume) 196 10*3/uL 130-400 Automated blood platelet mean volume measurement 11.0 [foz_us] 7.4-10.4 Automated blood neutrophils/100 leukocytes 58 % 42-75 Automated blood lymphocytes/100 leukocytes 30 % 12-44 Blood monocytes/100 leukocytes 9 % 0-12 Automated blood eosinophils/100 leukocytes 2 % 0-10 Automated blood basophils/100 leukocytes 1 % 0-10 Blood neutrophils automated count (number/volume) 4.6 10*3 1.8-7.8 Blood lymphocytes automated count (number/volume) 2.4 10*3 1.0-4.0 Blood monocytes automated count (number/volume) 0. 7 10*3 0.0-1.0 Automated eosinophil count 0.1 10*3/uL 0 .0-0.3 Automated blood basophil count (count/volume) 0.0 10*3/uL 0.0-0.1 Comprehensive metabolic panel - 05/26/19 15:40 Serum or plasma sodium measurement (moles/volume) 136 mmol/L 135-145 Serum or plasma potassium measurement (moles/volume) 4.7 mmol/L 3.6-5.0 Serum or plasma chloride measurement (moles/volume) 97 mmol/L 98-107 Carbon dioxide 25 mmol/L 21-32 Serum or plasma anion gap determination (moles/volume) 14 mmol/L 5-14 Serum or plasma urea nitrogen measurement (mass/volume ) 23 mg/dL 7-18 Serum or plasma creatinine measurement (mass/volume) 0.60 mg/dL 0.60-1.30 Serum or plasma urea nitrogen/creatinine mass ratio 38 NRG Serum or plasma creatinine measurement w ith calculation of estimated glomerular filtration rate > NRG Serum or plasma glucose measurement (mass/volume) 113 mg/dL 70-105 Serum or plasma calcium measurement (mass/volume) 9.8 mg/dL 8.5-10.1 Serum or plasma total bilirubin measurement (mass/volu me) 1.5 mg/dL 0.1-1.0 Serum or plasma alkaline phosphatase tressa surement (enzymatic activity/volume) 132 U/L 40-136 Serum or plasma aspartate aminotransfera se measurement (enzymatic activity/volume) 92 U/L 5-34 Serum or plasma alanine aminotransferase measurement (enzymatic activity/volume) 43 U/L 0-55 Serum or plasma protein measurement (mass/volume) 7.4 g/dL 6.4-8.2 Serum or plasma albumin measurement (mass/volume) 4.0 g/dL 3.2-4.5 CALCIUM CORRECTED 9.8 mg/dL 8.5-10.1 Lipase - 05/26/19 15:40 Lipase 3000 U/L 8-78 Complete blood count (CBC) with automate d white blood cell (WBC) differential - 05/27/19 04:35 Blood leukocytes automated count (number/volume) 7.0 10*3/uL 4.3-11.0 Blood erythrocytes automated count (number/volume) 4.89 10*6/uL 4.35-5.85 Venous blood hemoglobin measurement (mass/volume) 14.0 g/dL 13.3-17.7 Blood hematocrit (volume fraction) 44 % 40-54 Automated erythrocyte mean corpuscular volume 89 [ foz_us] 80-99 Automated erythrocyte mean corpuscular h emoglobin (mass per erythrocyte) 29 pg 25-34 Automated erythrocyte mean corpuscular h emoglobin concentration measurement (mass/volume) 32 g/dL 32-36 Automated erythrocyte distribution width ratio 15. 8 % 10.0- 14.5 Automated blood platelet count (count/volume) 152 10*3/uL 130-400 Automated blood platelet mean volume measurement 11.7 [foz_us] 7.4-10.4 Automated blood neutrophils/100 leukocytes 63 % 42-75 Automated blood lymphocytes/100 leukocytes 23 % 12-44 Blood monocytes/100 leukocytes 12 % 0-12 Automated blood eosinophils/100 leukocytes 2 % 0-10 Automated blood basophils/100 leukocytes 1 % 0-10 Blood neutrophils automated count (number/volume) 4.4 10*3 1.8-7.8 Blood lymphocytes automated count (number/volume) 1.6 10*3 1.0-4.0 Blood monocytes automated count (number/volume) 0. 8 10*3 0.0-1.0 Automated eosinophil count 0.2 10*3/uL 0 .0-0.3 Automated blood basophil count (count/volume) 0.0 10*3/uL 0.0-0.1 Lipase - 05/27/19 04:35 Lipase 534 U/L 8-78 Serum or plasma triglyceride measurement (mass/volume) - 05/27/19 04:35 Serum or plasma triglyceride measurement (mass/volume) 173 mg/dL <150 Complete blood count (CBC) with automate d white blood cell (WBC) differential - 05/28/19 05:44 Blood leukocytes automated count (number/volume) 5.1 10*3/uL 4.3-11.0 Blood erythrocytes automated count (number/volume) 4.41 10*6/uL 4.35-5.85 Venous blood hemoglobin measurement (mass/volume) 12.8 g/dL 13.3-17.7 Blood hematocrit (volume fraction) 40 % 40-54 Automated erythrocyte mean corpuscular volume 91 [ foz_us] 80-99 Automated erythrocyte mean corpuscular h emoglobin (mass per erythrocyte) 29 pg 25-34 Automated erythrocyte mean corpuscular h emoglobin concentration measurement (mass/volume) 32 g/dL 32-36 Automated erythrocyte distribution width ratio 15. 5 % 10.0- 14.5 Automated blood platelet count (count/volume) 145 10*3/uL 130-400 Automated blood platelet mean volume measurement 11.5 [foz_us] 7.4-10.4 Automated blood neutrophils/100 leukocytes 63 % 42-75 Automated blood lymphocytes/100 leukocytes 23 % 12-44 Blood monocytes/100 leukocytes 11 % 0-12 Automated blood eosinophils/100 leukocytes 2 % 0-10 Automated blood basophils/100 leukocytes 0 % 0-10 Blood neutrophils automated count (number/volume) 3.2 10*3 1.8-7.8 Blood lymphocytes automated count (number/volume) 1.2 10*3 1.0-4.0 Blood monocytes automated count (number/volume) 0. 6 10*3 0.0-1.0 Automated eosinophil count 0.1 10*3/uL 0 .0-0.3 Automated blood basophil count (count/volume) 0.0 10*3/uL 0.0-0.1 Comprehensive metabolic panel - 05/28/19 05:44 Serum or plasma sodium measurement (moles/volume) 139 mmol/L 135-145 Serum or plasma potassium measurement (moles/volume) 3.9 mmol/L 3.6-5.0 Serum or plasma chloride measurement (moles/volume) 107 mmol/L 98-107 Carbon dioxide 22 mmol/L 21-32 Serum or plasma anion gap determination (moles/volume) 10 mmol/L 5-14 Serum or plasma urea nitrogen measurement (mass/volume ) 20 mg/dL 7-18 Serum or plasma creatinine measurement (mass/volume) 0.59 mg/dL 0.60-1.30 Serum or plasma urea nitrogen/creatinine mass ratio 34 NRG Serum or plasma creatinine measurement w ith calculation of estimated glomerular filtration rate > NRG Serum or plasma glucose measurement (mass/volume) 63 mg/dL 70-105 Serum or plasma calcium measurement (mass/volume) 8.8 mg/dL 8.5-10.1 Serum or plasma total bilirubin measurement (mass/volu me) 1.1 mg/dL 0.1-1.0 Serum or plasma alkaline phosphatase tressa surement (enzymatic activity/volume) 113 U/L 40-136 Serum or plasma aspartate aminotransfera se measurement (enzymatic activity/volume) 42 U/L 5-34 Serum or plasma alanine aminotransferase measurement (enzymatic activity/volume) 40 U/L 0-55 Serum or plasma protein measurement (mass/volume) 5.8 g/dL 6.4-8.2 Serum or plasma albumin measurement (mass/volume) 3.2 g/dL 3.2-4.5 CALCIUM CORRECTED 9.4 mg/dL 8.5-10.1 Comprehensive metabolic panel - 05/29/19 08:10 Serum or plasma sodium measurement (moles/volume) 140 mmol/L 135-145 Serum or plasma potassium measurement (moles/volume) 3.7 mmol/L 3.6-5.0 Serum or plasma chloride measurement (moles/volume) 107 mmol/L 98-107 Carbon dioxide 24 mmol/L -32 Serum or plasma anion gap determination (moles/volume) 9 mmol/L 5-14 Serum or plasma urea nitrogen measurement (mass/volume ) 10 mg/dL 7-18 Serum or plasma creatinine measurement (mass/volume) 0.56 mg/dL 0.60-1.30 Serum or plasma urea nitrogen/creatinine mass ratio 18 NRG Serum or plasma creatinine measurement w ith calculation of estimated glomerular filtration rate > NRG Serum or plasma glucose measurement (mass/volume) 68 mg/dL 70-105 Serum or plasma calcium measurement (mass/volume) 8.7 mg/dL 8.5-10.1 Serum or plasma total bilirubin measurement (mass/volu me) 1.1 mg/dL 0.1-1.0 Serum or plasma alkaline phosphatase tressa surement (enzymatic activity/volume) 98 U/L 40-136 Serum or plasma aspartate aminotransfera se measurement (enzymatic activity/volume) 31 U/L 5-34 Serum or plasma alanine aminotransferase measurement (enzymatic activity/volume) 27 U/L 0-55 Serum or plasma protein measurement (mass/volume) 5.8 g/dL 6.4-8.2 Serum or plasma albumin measurement (mass/volume) 3.2 g/dL 3.2-4.5 CALCIUM CORRECTED 9.3 mg/dL 8.5-10.1 Methicillin resistant Staphylococcus aur eus (MRSA) screening culture - 05/29/19 17:41 Methicillin resistant Staphylococcus aureus (MRSA) scr eening culture NEG NRG Encounters ACCT No. Visit Date/Time Discharge Status Pt. Type Provider Facility Loc./Unit Complaint [id number] 05/26/2019 17:25:00 18:12:00 DIS Inpatient MARLEEN ROBB, GENO Dalton [facility] 4TH STOMACH PAIN [id number] 05/05/2019 22:14:00 02:04:00 DIS Emergency KARI DOALLAN a [facility] ER NAUSEA, PAIN [id number] 04/15/2019 10:39:00 23:59:59 CLS Outpatient DEVORAH SMITH [facility] RAD FS M25.561 [id number] 09/27/2018 14:00:00 23:59:59 CLS Preadmit SIS ROBB, TAISHA Rubin [facility] RAD FACIAL NUMBNESS [id number] 09/12/2018 16:39:00 019 23:59:59 CLS Outpatient SIS ROBB, TAISHA Rubin [facility] RAD FS R20.3 FACIAL NUMBNESS [id number] 09/12/2018 16:11:00 019 16:11:00 CAN Preadmit TAISHA ALEGRE MD [facility] RAD FS R20.0 FACIAL NUMBNESS
[2019-11-20] MEDS ORDERED: fentaNYL INJECTION 100 MCG/2 ML AMP IVP STA (09:27)
[2019-11-20] MEDS ORDERED: LACTATED RINGERS 1,000 ML IV ONE (09:27)
[2019-11-20 09:39] LABS: BASOPHILS % (AUTO) 0 % (0-10); EOSINOPHILS # (AUTO) 0.3 10^3/uL (0.0-0.3); EOSINOPHILS % (AUTO) 3 % (0-10); HEMATOCRIT 42 % (40-54); HEMOGLOBIN 13.6 G/DL (13.3-17.7); LYMPHOCYTES # (AUTO) 1.2 X 10^3 (1.0-4.0); LYMPHOCYTES % (AUTO) 17 % (12-44); MEAN CORPUSCULAR HEMOGLOBIN 30 PG (25-34); MEAN CORPUSCULAR HGB CONC 33 G/DL (32-36); MEAN CORPUSCULAR VOLUME 93 FL (80-99); MEAN PLATELET VOLUME 9.8 FL (7.4-10.4); MONOCYTES # (AUTO) 1.3 X 10^3 (0.0-1.0); MONOCYTES % (AUTO) 17 % (0-12); NEUTROPHILS # (AUTO) 4.6 X 10^3 (1.8-7.8); NEUTROPHILS % (AUTO) 63 % (42-75); PLATELET COUNT 206 10^3/uL (130-400); RED CELL DISTRIBUTION WIDTH 15.2 % (10.0-14.5); WHITE BLOOD COUNT 7.4 10^3/uL (4.3-11.0)
[2019-11-20 09:41] LABS: ALBUMIN 3.6 GM/DL (3.2-4.5); CHLORIDE 102 MMOL/L (98-107); POTASSIUM 4.3 MMOL/L (3.6-5.0); SODIUM 136 MMOL/L (135-145)
[2019-11-20 09:42] LABS: CALCIUM 8.8 MG/DL (8.5-10.1)
[2019-11-20 09:43] LABS: GLUCOSE 95 MG/DL (70-105)
[2019-11-20 09:45] LABS: BILIRUBIN,TOTAL 1.2 MG/DL (0.1-1.0); CARBON DIOXIDE 23 MMOL/L (21-32); FIBRIN DEGRADATION PRODUCTS 0.94 UG/ML (0.00-0.49); INR 1.1 (0.8-1.4); PROTHROMBIN TIME PATIENT 14.2 SEC (12.2-14.7)
[2019-11-20 09:47] LABS: ALKALINE PHOSPHATASE 66 U/L (40-136); CREATININE SERUM 0.66 MG/DL (0.60-1.30); GFR ESTIMATED > 60
[2019-11-20 09:48] LABS: BUN/CREATININE RATIO 23
[2019-11-20 09:50] LABS: ALANINE AMINOTRANSFERASE 6 U/L (0-55)
[2019-11-20 10:05] LABS: BILIRUBIN,URINE NEGATIVE (NEGATIVE); CLARITY,URINE CLEAR; COLOR,URINE YELLOW; GLUCOSE, URINE (UA) NEGATIVE (NEGATIVE); KETONES,URINE NEGATIVE (NEGATIVE); LEUKOCYTE ESTERASE ,URINE NEGATIVE (NEGATIVE); NITRITE,URINE NEGATIVE (NEGATIVE); PROTEIN,URINE NEGATIVE (NEGATIVE)
[2019-11-20 10:07] LABS: ERYTHROCYTE SEDIMENTATION RATE 65 MM/HR (0-30)
[2019-11-20 10:16] LABS: BACTERIA,URINE NEGATIVE /HPF; SQUAMOUS EPITHELIAL CELL,UR RARE /HPF
--- NOTE | 2019-11-20 10:54 | Diagnostic Imaging Report ---
INDICATION: Shortness of breath. Comparison with 05/05/2019. FINDINGS: There has been development of interstitial and reticular nodular alveolar infiltrate in both lungs. There is increasing density which has developed in the left upper lung laterally measuring approximately 4 cm. The heart is mildly enlarged. The costophrenic angles are sharp. No pneumothorax. IMPRESSION: 1. Increasing reticular nodular infiltrate especially in the left lung with approximately 4 cm consolidated density developing in the left upper lung since previous exam. Would consider CT scan of the chest for further evaluation. Dictated by: Dictated on workstation # [id number]
[2019-11-20] MEDS ORDERED: IOHEXOL 350 MG/ML 100 ML (OMNIPAQUE 350) VIAL IV ONE (11:00)
[2019-11-20] MEDS ORDERED: NS 100 ML (IVPB) BAG IV ONE (11:00)
[2019-11-20] MEDS ORDERED: HOLD METFORMIN - RECEIVED CONTRAST 20 ML VIAL IV SCH (11:00)
[2019-11-20 11:03] VITALS: BP 130/76
--- NOTE | 2019-11-20 11:17 | ED General ---
General Chief Complaint: Abdominal/GI Problems Stated Complaint: SOB Nursing Triage Note: PT REPORTS WAKING UP THIS MORNING WITH SEVERE PAIN AROUND HIS PEG TUBE. PT NOTICED WHEN HE WOKE UP THAT HIS SOA THAT HE HAD YESTERDAY WAS WORSE. PT STATED THAT HE THINKS IT MAYBE RELATED TO ANXIETY SINCE HE THINKS HIS CANCER MAY HAVE METS TO HIS LUNGS. PT TRAVELS TO FOR CANCER APPOITMENTS, WAS SEEN MONDAY AND STARTED ON NEW MEDICATION FOR HIS CANCER. STATES PEG TUBE HAS BEEN HURTING FOR AWHILE, RED AROUND PEG TUBE WITH DRAINAGE, DRAINAGE IS ALWAYS PRESENT. Nursing Sepsis Screen: No Definite Risk Source of Information: Patient Exam Limitations: No Limitations History of Present Illness Date Seen by Provider: November 20, 2019 Time Seen by Provider: 10:05 Initial Comments Here with report of shortness of breath and left-sided abdominal pain. 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 States has intermittent pain to the area around the PEG tube and that was worse this morning. Also short of breath that he's not sure if that is related to the pain or other problems. Does have recent travel to 6 days ago and had chemotherapy. He was started on new agents that today. Has not had a CT scan of the abdomen for at least 3 months. States the pain comes and goes and is worse when standing and better when lying back. Breathing problems or worse with activity. Denies fever. Denies cough. Timing/Duration: 3-4 Days, Getting Worse Severity: Moderate Associated Systoms: No Chest Pain, No Cough, No Fever/Chills; Malaise; No Nausea/Vomiting; Shortness of Air, Weakness Allergies and Home Medications Allergies Coded Allergies: lisinopril (Verified Allergy, Intermediate, 05/05/19) Home Medications Alprazolam 0.25 Mg Tablet, 0.25 MG PO BID, (Reported) Axitinib 5 Mg Tablet, 5 MG PO BID, (Reported) Diphenoxylate HCl/Atropine 1 Each Tablet, 1 EACH PO Q6H Prescribed by: ALLAN PIERCE on 05/06/19 0128 Diphenoxylate HCl/Atropine 1 Each Tablet, 1 TAB PO Q6H PRN for DIARRHEA, (Reported) Famotidine 20 Mg Tablet, 20 MG PO BID, (Reported) Fentanyl 1 Each Patch.td72, 25 MCG TD [id number], (Reported) TOOK PATCH OFF ON 11-10-2019 AND HAS NOT REAPPLIED Hydrocodone Bit/Acetaminophen 1 Each Tablet, 1-2 TAB PO Q6H Prescribed by: CLINTON LUU on 05/30/19 7077 Ondansetron 8 Mg Tab.rapdis, 8 MG PO Q6H PRN for NAUSEA/VOMITING-1ST LINE, (Reported) Pantoprazole Sodium 40 Mg Tablet.dr, 40 MG PO DAILY, (Reported) Zolpidem Tartrate 10 Mg Tablet, 10 MG PO HS, (Reported) Patient Home Medication List Home Medication List Reviewed: Yes Review of Systems Review of Systems Constitutional: see HPI; No fever; malaise, weakness EENTM: other (left lower jaw mass); No throat pain Respiratory: No cough; dyspnea on exertion, short of breath Cardiovascular: No chest pain, No edema Gastrointestinal: abdominal pain; No nausea, No vomiting Genitourinary: no symptoms reported Musculoskeletal: joint pain, muscle pain Skin: No pruritus, No rash Psychiatric/Neurological: See HPI Hematologic/Lymphatic: No Symptoms Reported Past Fhyloqy-Odhlzj-[id number] Hx Past Med/Social Hx: Reviewed Nursing Past Med/Soc Hx Patient Social History Alcohol Use: Denies Use Recreational Drug Use: No Type Used: Cigarettes, Smokeless Tobacco 2nd Hand Smoke Exposure: No Recent Foreign Travel: No Contact w/Someone Who Travel: No Recent Infectious Disease Expo: No Recent Hopitalizations: Yes (MAY 2019-PANCREATITIS) Physical Abuse: No Sexual Abuse: No Seasonal Allergies Seasonal Allergies: Yes Past Medical History Surgeries: Yes Abdominal, Gallbladder, Orthopedic Respiratory: No Cardiac: Yes Hypertension Neurological: No Genitourinary: Yes (left renal cell carcinoma) Gastrointestinal: Yes (FEEDING TUBE; PARTIAL COLECTOMY FOR BENIGN POLYPS) Polyps Musculoskeletal: No Endocrine: No HEENT: Yes (LEFT MANDIBLE METASTATIC MASS-FROM PRIMARY TUMOR OF LEFT KIDNEY) Cancer: Yes (METS TO JAW AND LYMPHNODES) Kidney Did You Recieve Any Treatments: Yes What Type of Treatment Did You: Chemotherapy Psychosocial: Yes Anxiety Integumentary: No Blood Disorders: No Family Medical History Reviewed Nursing Family Hx Alcoholism 19 FATHER Cardiovascular disease 19 FATHER 19 MOTHER G8 SISTER G8 SISTER Diabetes mellitus 19 MOTHER G8 SISTER G8 SISTER FH: pancreatic cancer 19 FATHER Fibromyalgia G8 SISTER Heart Disease, Cancer, Diabetes Physical Exam-Suspected Sepsis Physical Exam Vital Signs Vital Signs - First Documented 11/20/19 08:57 Temp 37.1 Pulse 102 Resp 16 B/P (MAP) 148/90 (109) Pulse Ox 92 O2 Delivery Room Air Capillary Refill : Less Than 3 Seconds Blood Pressure Mean: 94 Height, Weight, BMI Height: '" Weight: lbs. oz. kg; 24.00 BMI Method: General Appearance: No Apparent Distress HEENT: PERRL/EOMI, Pharynx Normal, Other (mass noted to left lower jaw) Neck: Supple, Other (swelling noted left lower jaw and upper neck where cancer is noted to be.) Respiratory: Lungs Clear, Normal Breath Sounds Cardiovascular: No Murmur, Tachycardia Gastrointestinal: Soft, Tenderness (near the left side of abdomen were PEG tube is. Fullness noted in the area of pain) Back: Normal Inspection, No CVA Tenderness, No Vertebral Tenderness Extremity: Normal Range of Motion, Non Tender Neurologic/Psychiatric: Alert, Oriented x3 Skin: normal color, warm/dry, other (stoma looks appropriate without signs of surrounding significant erythema or infection. Minimal drainage noted.) Focused Exam Lactate Level 11/20/19 09:15: Lactic Acid Level 1.32 Lactic Acid Level Laboratory Tests Test 11/20/19 09:15 Lactic Acid Level 1.32 MMOL/L (0.50-2.00) Progress/Results/Core Measures Suspected Sepsis Recent Fever Within 48 Hours: No Infection Criteria Present: Suspected New Infection New/Unexplained Altered Menta: No Sepsis Screen: No Definite Risk SIRS Temperature: Pulse: 93 Respiratory Rate: 16 Laboratory Tests 11/20/19 09:15: White Blood Count 7.4 Blood Pressure 130 /76 Mean: 94 11/20/19 09:15: Lactic Acid Level 1.32 Laboratory Tests 11/20/19 09:15: Creatinine 0.66, INR Comment 1.1, Platelet Count 206, Total Bilirubin 1.2H Results/Orders Lab Results Laboratory Tests Test 11/20/19 09:15 11/20/19 09:49 11/20/19 09:54 Range/Units White Blood Count 7.4 4.3-11.0 10^3/uL Red Blood Count 4.51 4.35-5.85 10^6/uL Hemoglobin 13.6 13.3-17.7 G/DL Hematocrit 42 40-54 % Mean Corpuscular Volume 93 80-99 FL Mean Corpuscular Hemoglobin 30 25-34 PG Mean Corpuscular Hemoglobin Concent 33 32-36 G/DL Red Cell Distribution Width 15.2 H 10.0-14.5 % Platelet Count 206 130-400 10^3/uL Mean Platelet Volume 9.8 7.4-10.4 FL Neutrophils (%) (Auto) 63 42-75 % Lymphocytes (%) (Auto) 17 12-44 % Monocytes (%) (Auto) 17 H 0-12 % Eosinophils (%) (Auto) 3 0-10 % Basophils (%) (Auto) 0 0-10 % Neutrophils # (Auto) 4.6 1.8-7.8 X 10^3 Lymphocytes # (Auto) 1.2 1.0-4.0 X 10^3 Monocytes # (Auto) 1.3 H 0.0-1.0 X 10^3 Eosinophils # (Auto) 0.3 0.0-0.3 10^3/uL Basophils # (Auto) 0.0 0.0-0.1 10^3/uL Erythrocyte Sedimentation Rate 65 H 0-30 MM/HR Prothrombin Time 14.2 12.2-14.7 SEC INR Comment 1.1 0.8-1.4 Activated Partial Thromboplast Time 40 H 24-35 SEC D-Dimer 0.94 H 0.00-0.49 UG/ML Sodium Level 136 135-145 MMOL/L Potassium Level 4.3 3.6-5.0 MMOL/L Chloride Level 102 98-107 MMOL/L Carbon Dioxide Level 23 21-32 MMOL/L Anion Gap 11 5-14 MMOL/L Blood Urea Nitrogen 15 7-18 MG/DL Creatinine 0.66 0.60-1.30 MG/DL Estimat Glomerular Filtration Rate > 60 BUN/Creatinine Ratio 23 Glucose Level 95 70-105 MG/DL Lactic Acid Level 1.32 0.50-2.00 MMOL/L Calcium Level 8.8 8.5-10.1 MG/DL Corrected Calcium 9.1 8.5-10.1 MG/DL Total Bilirubin 1.2 H 0.1-1.0 MG/DL Aspartate Amino Transf (AST/SGOT) 24 5-34 U/L Alanine Aminotransferase (ALT/SGPT) 6 0-55 U/L Alkaline Phosphatase 66 40-136 U/L Lactate Dehydrogenase 403 H 125-220 U/L C-Reactive Protein High Sensitivity 8.60 H 0.00-0.50 MG/DL Total Protein 7.0 6.4-8.2 GM/DL Albumin 3.6 3.2-4.5 GM/DL Procalcitonin 0.04 <0.10 NG/ML Urine Color YELLOW Urine Clarity CLEAR Urine pH 7.0 5-9 Urine Specific [place] 1.015 L 1.016-1.022 Urine Protein NEGATIVE NEGATIVE Urine Glucose (UA) NEGATIVE NEGATIVE Urine Ketones NEGATIVE NEGATIVE Urine Nitrite NEGATIVE NEGATIVE Urine Bilirubin NEGATIVE NEGATIVE Urine Urobilinogen 1.0 < = 1.0 MG/DL Urine Leukocyte Esterase NEGATIVE NEGATIVE Urine RBC (Auto) NEGATIVE NEGATIVE Urine RBC NONE /HPF Urine WBC NONE /HPF Urine Squamous Epithelial Cells RARE /HPF Urine Crystals NONE /LPF Urine Bacteria NEGATIVE /HPF Urine Casts NONE /LPF Urine Mucus NEGATIVE /LPF Urine Culture Indicated CULTURE PENDING Micro Results Microbiology 11/20/19 Influenza Types A,B Antigen (BERTHA) - Final, Complete My Orders Orders - THOMAS ODELL MD Cbc With Automated Diff (11/20/19:) Comprehensive Metabolic Panel (11/20/19:) Blood Culture (11/20/19) Sputum Culture (11/20/19:) Urinalysis (11/20/19) Urine Culture (11/20/19) Protime With Inr (11/20/19) Partial Thromboplastin Time (11/20/19:) Chest 1 View, Ap/Pa Only (11/20/19:) Ed Iv/Invasive Line Start (11/20/19:) Vital Signs Adult Sepsis Patie Q15M (11/20/19:) O2 (11/20/19:) Remove Rings In Anticipation O (11/20/19:) Wound Culture (11/20/19:) Lactic Acid Analyzer (11/20/19:) Influenza A And B Antigens (11/20/19:) Fibrin Degradation Products (11/20/19:) Procalcitonin (Pct) (11/20/19:) Hs C Reactive Protein (11/20/19:) Erythrocyte Sedimentation Rate (11/20/19:) LDH (5/6/20 09:27) Coronavirus Sars-Cov-2 So 2019 (11/20/19 09:27) Fentanyl Injection (Sublimaze Injection (11/20/19 09:27) Lactated Ringers (Lr 1000 Ml Iv Solution (11/20/19 09:27) Ct Chest/Abdomen/Pelvis W (11/20/19 10:37) Iohexol Injection (Omnipaque 350 Mg/Ml 1 (11/20/19 11:00) Received Contrast (Hold Metformin- Contr (11/20/19 11:00) Ns (Ivpb) (Sodium Chloride 0.9% Ivpb Bag (11/20/19 11:00) Medications Given in ED Current Medications Medications Dose Ordered Sig/Britton Route Start Time Stop Time Status Last Admin Dose Admin Iohexol 100 ml ONCE ONCE IV 11/20/19 11:00 11/20/19 11:01 DC 11/20/19 11:30 100 ML Lactated Ringer's 1,000 ml @ 0 mls/hr Q0M ONCE IV 11/20/19 09:27 11/20/19 09:31 DC 11/20/19 09:38 999 MLS/HR Sodium Chloride 100 ml ONCE ONCE IV 11/20/19 11:00 11/20/19 11:01 DC 11/20/19 11:30 80 ML Vital Signs/I&O 11/20/19 11/20/19 08:57 11:03 Temp 37.1 37.1 Pulse 102 93 Resp 16 16 B/P (MAP) 148/90 (109) 130/76 (94) Pulse Ox 92 94 O2 Delivery Room Air Room Air Capillary Refill : Less Than 3 Seconds Blood Pressure Mean: 94 Progress Note : Progress Note Seen and evaluated. IV, labs, blood cultures and lactic acid ordered. Chest x- ray and UA ordered. LR 1 L bolus and fentanyl [address] chest, abdomen and pelvis with contrast ordered due to concerns about mass increase and migration given pain syndrome. He is feeling better after fluids and meds. Monitor patient. 1235: CT scan completed and I did discuss the results with the patient including the additional masses noted in the lungs. He is overall feeling better. COVID-19 testing is pending and was done due to his travel to [place] last week. He is afebrile and low likelihood of being positive but still possible so he was given precautions related to COVID-19. He will stay at home until called with negative result or positive result. COVID-19 information packet given. I did discuss all the findings and concerns with the patient's . She did give me the phone number for the patient's oncologist, Dr. Velasco in [place]. I did leave message with the nurse for him. We have sent a copy of the scans via electronic transmission to . Discharged home with return precautions. Patient and verbalized understanding of instructions and agre ement with plan. Diagnostic Imaging Diagonstic Imaging: Xray Plain Films/CT/US/NM/MRI: chest [facility] [place] [place] NAME: EMILIA OCONNELL [facility] REC#: [id number] PT STATUS: REG ER : 1950 PHYSICIAN: THOMAS ODELL MD ADMIT DATE: 11/20/19/ER Draft Date of Exam:11/20/19 CHEST 1 VIEW, AP/PA ONLY INDICATION: Shortness of breath. Comparison with 05/05/2019. FINDINGS: There has been development of interstitial and reticular nodular alveolar infiltrate in both lungs. There is increasing density which has developed in the left upper lung laterally measuring approximately 4 cm. The heart is mildly enlarged. The costophrenic angles are sharp. No pneumothorax. IMPRESSION: 1. Increasing reticular nodular infiltrate especially in the left lung with approximately 4 cm consolidated density developing in the left upper lung since previous exam. Would consider CT scan of the chest for further evaluation. Dictated on workstation # [id number] Dict: 11/20/19 1043 Trans: 11/20/19 1054 [facility] [id number] Interpreted by: SARAH HICKS MD Electronically signed by: Diagonstic Imaging: CT Plain Films/CT/US/NM/MRI: chest, abdomen, pelvis Comments [facility] [place], [place] NAME: EMILIA OCONNELL [facility] REC#: [id number] PT STATUS: REG ER : 1950 PHYSICIAN: THOMAS ODELL MD ADMIT DATE: 11/20/19/ER Draft Date of Exam:11/20/19 CT CHEST/ABDOMEN/PELVIS W PROCEDURE: CT chest, abdomen, and pelvis with contrast. TECHNIQUE: Multiple contiguous axial images were obtained through the chest, abdomen, and pelvis after the administration of intravenous contrast. Auto Exposure Controls were utilized during the CT exam to meet ALARA standards for radiation dose reduction. INDICATION: Kidney cancer and increasing dyspnea. Comparison is made to previous studies of 05/05/2019 and 05/26/2019 CT CHEST: There has been development of mild bilateral pleural fluid. There has been worsening of mediastinal and bilateral hilar adenopathy. This does demonstrate central low density indicating probable partial necrosis. Largest node is in the retro-carinal region measuring 4.1 x 3.4 cm. Anterior mediastinal adenopathy reaches approximately 3 cm in diameter. There is also partially visualized lymph node in left supraclavicular fossa measuring 3.5 x 2.8 cm. Right hilar lymph nodes reach approximately 3.0 x 2.6 cm in size. There is increasing retrocrural adenopathy and numerous peripheral pleural-based nodules, bilaterally. IMPRESSION: Worsening of extensive metastatic adenopathy involving left supraclavicular fossa, mediastinum and both mario with increasing retrocrural adenopathy and developing bilateral pleural-based nodules compatible with metastatic disease. There is mild bilateral pleural fluid. CT abdomen and pelvis: Percutaneous gastrostomy tube remains in stable position. No focal hepatic abnormality is identified. Gallbladder is surgically absent. No pancreatic, adrenal gland or splenic abnormality is seen. Dominant low density exophytic mass arising from lower pole left kidney measures 9.4 x 8.4 cm compared with 8.9 x 7.9 cm on the previous study. There has been further increase in central retroperitoneal metastatic adenopathy. Largest retroperitoneal lymph nodes are in the region of the left renal hilum and measure up to approximately 3.5 cm in diameter. There is excretion of contrast from both kidneys. Right kidney is unremarkable. Partially opacified urinary bladder is also unremarkable. No organized fluid collection is identified. There is an approximately 1 cm focal lucency to the left of midline in the upper sacrum which was not definitely seen on the previous examination. IMPRESSION: Progressive central retroperitoneal metastatic adenopathy with persistent dominant exophytic mass arising from lower pole left kidney. There may be developing osseous metastatic disease involving the upper sacrum as well. Dictated on workstation # [id number] Dict: 11/20/19 1134 Trans: 11/20/19 1148 [id number] Interpreted by: DORITA NICHOLS MD Electronically signed by: Departure Impression Primary Impression: Abdominal pain Qualified Codes: R10.12 - Left upper quadrant pain Additional Impression: Kidney cancer, primary, with metastasis from kidney to other site Qualified Codes: C64.2 - Malignant neoplasm of left kidney, except renal pelvis Disposition: 01 HOME, SELF-CARE Condition: Stable Departure-Patient Inst. Decision time for Depature: 12:28 Referrals: BRYAN ANTHONY DO (PCP/Family) Primary Care Physician Patient Instructions: Acute Abdomen (Belly Pain), Adult (DC), Kidney Cancer Add. Discharge Instructions: All discharge instructions reviewed with patient and/or family. Voiced understanding. Continue home medications as previously prescribed. It is okay. Take your pain medicine during the day. Drink plenty of fluids and continue to try to get nutrition through protein shakes or other foods as tolerated. You work tested for COVID-19. That test results should be back by tomorrow afternoon. You'll be called to let you know that was negative or positive. As a person under investigation, you need to limit contact to the public. You need to stay at home until released. Follow-up with your oncologist. Call his office for further instructions. Return for worse pain, fever, vomiting, weakness, breathing problems or other concerns as needed. Copy Copies To 1: BRYAN ANTHONY TIMOTHY D MD November 20, 2019 11:17
--- NOTE | 2019-11-20 11:48 | Diagnostic Imaging Report ---
PROCEDURE: CT chest, abdomen, and pelvis with contrast. TECHNIQUE: Multiple contiguous axial images were obtained through the chest, abdomen, and pelvis after the administration of intravenous contrast. Auto Exposure Controls were utilized during the CT exam to meet ALARA standards for radiation dose reduction. INDICATION: Kidney cancer and increasing dyspnea. Comparison is made to previous studies of 05/05/2019 and 05/26/2019 CT CHEST: There has been development of mild bilateral pleural fluid. There has been worsening of mediastinal and bilateral hilar adenopathy. This does demonstrate central low density indicating probable partial necrosis. Largest node is in the retro-carinal region measuring 4.1 x 3.4 cm. Anterior mediastinal adenopathy reaches approximately 3 cm in diameter. There is also partially visualized lymph node in left supraclavicular fossa measuring 3.5 x 2.8 cm. Right hilar lymph nodes reach approximately 3.0 x 2.6 cm in size. There is increasing retrocrural adenopathy and numerous peripheral pleural-based nodules, bilaterally. IMPRESSION: Worsening of extensive metastatic adenopathy involving left supraclavicular fossa, mediastinum and both mario with increasing retrocrural adenopathy and developing bilateral pleural-based nodules compatible with metastatic disease. There is mild bilateral pleural fluid. CT abdomen and pelvis: Percutaneous gastrostomy tube remains in stable position. No focal hepatic abnormality is identified. Gallbladder is surgically absent. No pancreatic, adrenal gland or splenic abnormality is seen. Dominant low density exophytic mass arising from lower pole left kidney measures 9.4 x 8.4 cm compared with 8.9 x 7.9 cm on the previous study. There has been further increase in central retroperitoneal metastatic adenopathy. Largest retroperitoneal lymph nodes are in the region of the left renal hilum and measure up to approximately 3.5 cm in diameter. There is excretion of contrast from both kidneys. Right kidney is unremarkable. Partially opacified urinary bladder is also unremarkable. No organized fluid collection is identified. There is an approximately 1 cm focal lucency to the left of midline in the upper sacrum which was not definitely seen on the previous examination. IMPRESSION: Progressive central retroperitoneal metastatic adenopathy with persistent dominant exophytic mass arising from lower pole left kidney. There may be developing osseous metastatic disease involving the upper sacrum as well. Dictated by: Dictated on workstation # [id number]
--- NOTE | 2019-11-20 12:04 | NUR ---
IN TALKING TO PT AT THIS TIME.
[2019-11-20 12:40] VITALS: BP 124/89
== END 2019-11-20 12:40 | disposition home or self-care (01) ==
LOC: EDUNIT# 08:34 → ER 08:36
DX: R10.9 Unspecified abdominal pain (principal); C64.2 Malignant neoplasm of left kidney, except renal pelvis; C79.89 Secondary malignant neoplasm of other specified sites; C77.9 Secondary and unspecified malignant neoplasm of lymph node, unspecified; F41.9 Anxiety disorder, unspecified; Z88.8 Allergy status to other drugs, medicaments and biological substances; Z93.1 Gastrostomy status; Z82.49 Family history of ischemic heart disease and other diseases of the circulatory system; Z80.0 Family history of malignant neoplasm of digestive organs
CPT/HCPCS: 36415; 71045; 71260; 74177; 80053; 81000; 83605; 83615; 84145; 85025; 85379; 85610; 85652; 85730; 86141; 87040; 87070; 87077; 87088; 87205; 87635; 87804

== ENCOUNTER → 2020-04-06 | Outpatient (CLI) | payer MEDICARE, BC ==
[~2020-04-06] MED LIST changes: +CATHETER FLUSH 10 ML SYR IV PRN; +HOLD METFORMIN - RECEIVED CONTRAST 20 ML VIAL IV SCH; +IOHEXOL 350 MG/ML 100 ML (OMNIPAQUE 350) VIAL IV ONE; +NS 100 ML (IVPB) BAG IV ONE; -PANT40TA3 PO; +PANT40TA52 PO
--- NOTE | 2020-04-06 14:59 | Diagnostic Imaging Report ---
PROCEDURE: CT Neck, Chest Abdomen and Pelvis with contrast, Abdomen and Pelvis without. TECHNIQUE: Multiple contiguous axial images were obtained through the neck, chest, abdomen, and pelvis after the uneventful bolus administration of intravenous contrast. Precontrast acquisitions through the abdomen and pelvis were performed. Sagittal and coronal reformations are then performed. Auto Exposure Controls were utilized during the CT exam to meet ALARA standards for radiation dose reduction. 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 Patient complains of left-sided abdominal pain as well as pain in the mandible. COMPARISON: Correlation is made with prior CT chest from [facility] performed on 02/27/[address] abdomen and pelvis from [facility] performed on 02/17/2020. No prior CT neck study is available for comparison. FINDINGS: CT NECK: There is an expansile, lytic, destructive lesion involving the left mandible. This measures at least 5.7 cm AP x 4.4 cm transverse. There is extraosseous soft tissue extension, both along the lateral aspect of the mandible as well as medially along the lateral aspect of the tongue. There is some central low density as well as some small gas bubbles present as well. The visualized intracranial structures are unremarkable. Posterior nasopharynx is unremarkable. Epiglottis and larynx are unremarkable. There is some distortion of the left parapharyngeal soft tissues by the mass. No thyroid mass is detected. Submandibular and parotid glands appear to be fairly symmetric. No significant cervical lymphadenopathy is seen. There is left supraclavicular lymphadenopathy present. IMPRESSION: Lytic, expansile, and destructive lesion of the left mandible body with extraosseous soft tissue extension both medially and laterally. This most likely represents an osseous metastasis from patient's known renal cell carcinoma. CT CHEST: Extensive left supraclavicular lymphadenopathy is again noted. A large node along the lateral aspect of the left supraclavicular region measures 4.2 x 3.1 cm compared with 4.2 x 3.4 cm. Left axillary lymphadenopathy is noted. Left axillary node measures 3.7 x 1.8 cm compared with 3.5 x 1.8 cm. Bulky mediastinal lymphadenopathy is seen. The prevascular node measures 3.0 x 2.9 cm compared with 3.1 x 3.0 cm. A ruby mass posterior to the trachea measures 3.6 x 4.9 cm compared with 3.7 x 4.9 cm. Enlarged lymph nodes in the mario appear similar. Retrocrural lymph nodes appear similar. No pericardial or pleural fluid is identified. A large left upper posterolateral pleural metastasis is stable. Additional smaller left posterior pleural masses appear similar. There is some trace pleural fluid bilaterally. A tiny subpleural nodule in the right upper lobe posteriorly is stable. Lingular nodular density is stable. Additional nodular densities in the right lower lobe are stable. The expansile lytic lesion involving the T11 vertebral body is again seen. This again does show some extraosseous tumor extension along the anterior and left aspect of the thecal sac. Lytic lesion does appear to be slightly larger and extends slightly more anterior within the vertebral body than prior. There are numerous additional lytic lesions. Right transverse process at T6 demonstrates a lytic lesion. There are several small lucencies within the ribs. In particular the right second and third posterior ribs demonstrate ill-defined lucency, likely representing metastatic lesions. These are more prominent than prior exam. There is a lytic lesion involving the right posterior seventh rib, stable. IMPRESSION: Overall, very similar appearance to the chest when compared with examination one month earlier. Extensive thoracic lymphadenopathy appears to be fairly stable. Pleural metastatic disease and pulmonary nodules also appear to be stable. There are numerous lytic osseous lesions present, some of which appear to be slightly increased when compared with prior exam. CT ABDOMEN AND PELVIS: No discrete liver mass is identified. The gallbladder is surgically absent. No biliary ductal dilatation is seen. Pancreas and spleen are unremarkable. There is a G-tube within the stomach. The right adrenal gland is unremarkable. Left adrenal gland is unremarkable. Left kidney again contains a large cystic mass with peripheral calcification, similar in size. Aorta is nonaneurysmal. Extensive central retroperitoneal lymphadenopathy persists. An enlarged aortocaval node measures 2.8 x 3.6 cm compared with 3.0 x 3.3 cm. No definite iliac or inguinal lymphadenopathy is seen. Small and large bowel loops are normal in caliber. There is no obstruction. There is no free fluid or fluid collection. The bladder is unremarkable. The prostate is enlarged. Osseous structures are grossly unremarkable. IMPRESSION: Overall, stable CT abdomen and pelvis since prior examination from one month earlier. There continues to be significant central retroperitoneal lymphadenopathy, stable. Large left renal mass is stable. No new abnormality is detected. Dictated by: Dictated on workstation # [id number]
--- NOTE | 2020-04-06 16:21 | Diagnostic Imaging Report ---
INDICATION: Thoracic pain for 3 weeks. TECHNIQUE: The patient was administered 27 mCi of technetium 99m MDP intravenously and whole-body imaging was performed after a 3 hour delay. COMPARISON: No prior bone scans are available for comparison. FINDINGS: There is normal uptake of activity by the axial and appendicular skeleton. There is uptake by the kidneys with excretion into the urinary bladder. Abnormal uptake in the left mandible is identified, correlating with the expansile destructive lesion involving the left mandibular body on the CT study of the same day. There is some mild uptake at approximately T11 corresponding to the lytic lesion noted at this level. Subtle foci of uptake are identified involving bilateral posterior ribs correlating with lesions noted on CT. There is uptake involving the mid shaft of the left humerus. IMPRESSION: There are numerous abnormal foci noted, consistent with osseous metastatic disease. This involves the left mandible as well as bilateral ribs, lower thoracic spine, and mid shaft of the left humerus. Dictated by: Dictated on workstation # [id number]
== END ==
LOC: CARD 12:00
PROVIDERS: ATTEND Internal Medicine Hematology & Oncology
DX: C64.9 Malignant neoplasm of unspecified kidney, except renal pelvis (principal); C79.51 Secondary malignant neoplasm of bone; C78.00 Secondary malignant neoplasm of unspecified lung
CPT/HCPCS: 70491; 71260; 74178; 78306; A9503

== ENCOUNTER → 2020-04-15 | Outpatient (CLI) | payer MEDICARE, BC ==
[~2020-04-15] MED LIST changes: +ALPR.25T PO; -ALPR0.254 PO; -CATHETER FLUSH 10 ML SYR IV PRN; -HOLD METFORMIN - RECEIVED CONTRAST 20 ML VIAL IV SCH; -IOHEXOL 350 MG/ML 100 ML (OMNIPAQUE 350) VIAL IV ONE; -NS 100 ML (IVPB) BAG IV ONE
--- NOTE | 2020-04-15 17:18 | Diagnostic Imaging Report ---
INDICATION: Right rib pain, rectal cancer. EXAMINATION: Three views of the right ribs were obtained. FINDINGS: There is no displaced fracture. There is no osteoblastic or osteolytic bone lesion seen. Lungs are clear. There is no effusion or pneumothorax. IMPRESSION: Negative right ribs. Dictated by: Dictated on workstation # [id number]
== END ==
LOC: RAD 13:35
PROVIDERS: ATTEND Internal Medicine Hematology & Oncology
DX: C64.9 Malignant neoplasm of unspecified kidney, except renal pelvis (principal); C79.51 Secondary malignant neoplasm of bone; R07.81 Pleurodynia
CPT/HCPCS: 71100

== ENCOUNTER 2020-04-23 09:59 | Emergency (ER) | payer MEDICARE, BC ==
--- NOTE | 2020-04-23 10:59 | ED Lower Extremity ---
General Chief Complaint: Lower Extremity Stated Complaint: RT KNEE INJ Nursing Triage Note: Woke up this morning with left knee pain and swelling. no known injury. is rating pain at 10/10 Nursing Sepsis Screen: No Definite Risk Source: patient Exam Limitations: no limitations History of Present Illness Date Seen by Provider: Apr 23, 2020 Time Seen by Provider: 10:30 Initial Comments 69-year-old male past medical history significant for osteoarthritis presents with right knee joint pain and swelling for the past several days which is getting significantly worse. States that he's having trouble bending the knee and moving the knee. Denies history of joint aspiration, however does have long-term osteoarthritis. Patient ambulates minimally, states he mostly sits all day. Allergies and Home Medications Allergies Coded Allergies: lisinopril (Verified Allergy, Intermediate, 05/05/19) Home Medications ALPRAZolam 0.25 Mg Tablet, 0.25 MG PO BID, (Reported) Axitinib 5 Mg Tablet, 5 MG PO BID, (Reported) Diphenoxylate HCl/Atropine 1 Each Tablet, 1 EACH PO Q6H Prescribed by: ALLAN PIERCE on 05/06/19 0128 Diphenoxylate HCl/Atropine 1 Each Tablet, 1 TAB PO Q6H PRN for DIARRHEA, (Reported) Famotidine 20 Mg Tablet, 20 MG PO BID, (Reported) Fentanyl 1 Each Patch.td72, 25 MCG TD [id number], (Reported) TOOK PATCH OFF ON 05-26-2019 AND HAS NOT REAPPLIED Hydrocodone Bit/Acetaminophen 1 Each Tablet, 1-2 TAB PO Q6H Prescribed by: CLINTON LUU on 05/30/19 1627 Ondansetron 8 Mg Tab.rapdis, 8 MG PO Q6H PRN for NAUSEA/VOMITING-1ST LINE, (Reported) Pantoprazole Sodium 40 Mg Tablet.dr, 40 MG PO DAILY, (Reported) Zolpidem Tartrate 10 Mg Tablet, 10 MG PO HS, (Reported) Patient Home Medication List Home Medication List Reviewed: Yes Review of Systems Constitutional: see HPI; No fever, No malaise, No weakness Respiratory: no symptoms reported Cardiovascular: no symptoms reported Musculoskeletal: see HPI, joint pain (R>>>L knee pain), joint swelling (R knee worse than left), other (R knee pain ) Skin: No change in color, No lesions, No rash Past Rdqbeba-Pojskt-Fivvzy Hx Past Med/Social Hx: Reviewed Nursing Past Med/Soc Hx Patient Social History Alcohol Use: Denies Use Recreational Drug Use: No Smoking Status: Former Smoker Type Used: Cigarettes, Smokeless Tobacco 2nd Hand Smoke Exposure: No Recent Foreign Travel: No Contact w/Someone Who Travel: No Recent Infectious Disease Expo: No Recent Hopitalizations: Yes (MAY 2019-PANCREATITIS) Seasonal Allergies Seasonal Allergies: Yes Past Medical History Surgeries: Yes Abdominal, Gallbladder, Orthopedic Respiratory: No Cardiac: Yes Hypertension Neurological: No Genitourinary: Yes (left renal cell carcinoma) Gastrointestinal: Yes (FEEDING TUBE; PARTIAL COLECTOMY FOR BENIGN POLYPS) Polyps Musculoskeletal: No Endocrine: No HEENT: Yes (LEFT MANDIBLE METASTATIC MASS-FROM PRIMARY TUMOR OF LEFT KIDNEY) Cancer: Yes (METS TO JAW AND LYMPHNODES) Kidney Did You Recieve Any Treatments: Yes What Type of Treatment Did You: Chemotherapy Psychosocial: Yes Anxiety Integumentary: No Blood Disorders: No Family Medical History Alcoholism 19 FATHER Cardiovascular disease 19 FATHER 19 MOTHER G8 SISTER G8 SISTER Diabetes mellitus 19 MOTHER G8 SISTER G8 SISTER FH: pancreatic cancer 19 FATHER Fibromyalgia G8 SISTER Heart Disease, Cancer, Diabetes Physical Exam Vital Signs Vital Signs - First Documented 04/23/20 10:12 Temp 37.3 Pulse 128 Resp 16 B/P (MAP) 108/70 (83) Pulse Ox 95 Capillary Refill : Less Than 3 Seconds Height, Weight, BMI Height: '" Weight: lbs. oz. kg; 24.00 BMI Method: General Appearance: WD/WN, no apparent distress Knees: right knee joint effusion, right knee pain, right knee soft tissue tenderness, right knee swelling Neurologic/Tendon: normal sensation, normal motor functions, normal tendon functions, responds to pain Skin: normal color, warm/dry moderate R knee effusion w diffuse tenderness. - Gross OA of b/l knees. NVI, no skin changes. Procedures/Interventions Progress Right knee joint- aspiration of 36cc yellowish, slightly turbid fluid. tolerated well, using 22 g needle under sterile conditions Progress/Results/Core Measures Results/Orders Lab Results Laboratory Tests Test 04/23/20 11:11 Range/Units Body Fluid Source SYNOVIAL Body Fluid Color YELLOW Body Fluid Appearance CLOUDY Body Fluid WBC 06209 /uL Body Fluid RBC 3750 /uL Body Fluid Polynuclear WBCs 83 % Body Fluid Mononuclear WBCs 13 % Body Fluid Lymphocytes 4 % Body Fluid Other Cells % My Orders Orders - DEAN SUNSHINE DO Body Fluid Cell Count (04/23/20 10:59) Body Fluid Culture (04/23/20 10:59) Hydrocodone/Apap 10/325 Tablet (Lortab 1 (04/23/20 11:15) Medications Given in ED Current Medications Medications Dose Ordered Sig/Britton Route Start Time Stop Time Status Last Admin Dose Admin Acetaminophen/ Hydrocodone Bitart 1 ea ONCE ONCE PO 04/23/20 11:15 04/23/20 11:16 DC 04/23/20 11:08 1 EA Vital Signs/I&O 04/23/20 04/23/20 10:12 11:15 Temp 37.3 Pulse 128 117 Resp 16 20 B/P (MAP) 108/70 (83) 113/79 Pulse Ox 95 98 Blood Pressure Mean: 83 Progress Progress Note : Progress Note 2020hrs - Called and left message to notify patient of his lab results (synovial cell count) which is most consistent w an inflammatory (or OA) cause for the knee effusion. Cultures will be pending. Advised to see his PCP for f/u as instructed. Departure Impression Primary Impression: Knee effusion, right Additional Impression: Knee osteoarthritis Qualified Codes: M17.0 - Bilateral primary osteoarthritis of knee Disposition: 01 HOME, SELF-CARE Condition: Improved Departure-Patient Inst. Decision time for Depature: 10:54 Referrals: BRYAN WHITLOCK DO (PCP/Family) Primary Care Physician Patient Instructions: Osteoarthritis, Swollen Joints (DC) Add. Discharge Instructions: see Dr Whitlock in 1 week regarding your knee effusion and osteoarthritis All discharge instructions reviewed with patient and/or family. Voiced understanding. DEAN SUNSHINE DO Apr 23, 2020 10:59
[2020-04-23 11:15] VITALS: BP 113/79
[2020-04-23] MEDS ORDERED: HYDROcodone/APAP 10 MG/325 MG (LORTAB) TAB PO ONE (11:15)
[2020-04-23 16:29] LABS: BODY FLUID APPEARENCE CLOUDY; BODY FLUID COLOR YELLOW; BODY FLUID RBC COUNT 3750 /uL; BODY FLUID SOURCE SYNOVIAL
[2020-04-23 16:30] LABS: BODY FLUID WBC TOTAL COUNT 18988 /uL
[2020-04-23 16:44] LABS: LYMPHOCYTES,BODY FLUID 4 %
== END 2020-04-23 11:15 | disposition home or self-care (01) ==
LOC: EDUNIT# 09:59 → ER FS 10:01
DX: M17.0 Bilateral primary osteoarthritis of knee (principal); M25.461 Effusion, right knee; I10 Essential (primary) hypertension; F41.9 Anxiety disorder, unspecified; Z88.8 Allergy status to other drugs, medicaments and biological substances; Z87.891 Personal history of nicotine dependence; Z85.528 Personal history of other malignant neoplasm of kidney; Z85.79 Personal history of other malignant neoplasms of lymphoid, hematopoietic and related tissues; Z85.830 Personal history of malignant neoplasm of bone; Z80.0 Family history of malignant neoplasm of digestive organs; Z82.49 Family history of ischemic heart disease and other diseases of the circulatory system
CPT/HCPCS: 87070; 87205; 89051; 99283

== ENCOUNTER 2020-05-06 11:29 | Outpatient (RCR) | payer MEDICARE, BC ==
[2020-04-02 13:41] LABS: BASOPHILS % (AUTO) 0 % (0-10); EOSINOPHILS # (AUTO) 0.3 10^3/uL (0.0-0.3); EOSINOPHILS % (AUTO) 7 % (0-10); HEMATOCRIT 41 % (40-54); HEMOGLOBIN 13.1 G/DL (13.3-17.7); LYMPHOCYTES % (AUTO) 26 % (12-44); MEAN CORPUSCULAR HEMOGLOBIN 29 PG (25-34); MEAN CORPUSCULAR HGB CONC 32 G/DL (32-36); MEAN CORPUSCULAR VOLUME 92 FL (80-99); MEAN PLATELET VOLUME 8.5 FL (7.4-10.4); MONOCYTES # (AUTO) 0.6 X 10^3 (0.0-1.0); MONOCYTES % (AUTO) 16 % (0-12); NEUTROPHILS # (AUTO) 1.9 X 10^3 (1.8-7.8); NEUTROPHILS % (AUTO) 50 % (42-75); PLATELET COUNT 253 10^3/uL (130-400); WHITE BLOOD COUNT 3.8 10^3/uL (4.3-11.0)
[2020-04-02 14:16] LABS: ALANINE AMINOTRANSFERASE 8 U/L (0-55); ALBUMIN 3.1 GM/DL (3.2-4.5); ALKALINE PHOSPHATASE 84 U/L (40-136); BILIRUBIN,TOTAL 0.5 MG/DL (0.1-1.0); BUN/CREATININE RATIO 23; CALCIUM 8.4 MG/DL (8.5-10.1); CARBON DIOXIDE 29 MMOL/L (21-32); CHLORIDE 99 MMOL/L (98-107); CREATININE SERUM 0.64 MG/DL (0.60-1.30); GFR ESTIMATED > 60; GLUCOSE 97 MG/DL (70-105); POTASSIUM 4.3 MMOL/L (3.6-5.0); SODIUM 137 MMOL/L (135-145); TOTAL PROTEIN 6.5 GM/DL (6.4-8.2)
[2020-04-22 13:57] LABS: BASOPHILS # (AUTO) 0.1 10^3/uL (0.0-0.1); BASOPHILS % (AUTO) 1 % (0-10); EOSINOPHILS # (AUTO) 0.4 10^3/uL (0.0-0.3); EOSINOPHILS % (AUTO) 6 % (0-10); HEMATOCRIT 41 % (40-54); HEMOGLOBIN 12.9 g/dL (13.3-17.7); LYMPHOCYTES # (AUTO) 0.9 10^3/uL (1.0-4.0); LYMPHOCYTES % (AUTO) 15 % (12-44); MEAN CORPUSCULAR HEMOGLOBIN 30 pg (25-34); MEAN CORPUSCULAR HGB CONC 32 g/dL (32-36); MEAN CORPUSCULAR VOLUME 94 fL (80-99); MEAN PLATELET VOLUME 8.8 fL (9.0-12.2); MONOCYTES # (AUTO) 0.8 10^3/uL (0.0-1.0); MONOCYTES % (AUTO) 12 % (0-12); NEUTROPHILS # (AUTO) 4.3 10^3/uL (1.8-7.8); NEUTROPHILS % (AUTO) 67 % (42-75); PLATELET COUNT 256 10^3/uL (130-400); WHITE BLOOD COUNT 6.4 10^3/uL (4.3-11.0)
[2020-04-22 13:58] LABS: BILIRUBIN,URINE NEGATIVE (NEGATIVE); CLARITY,URINE SL CLOUDY; COLOR,URINE DARK YELLOW; GLUCOSE, URINE (UA) NEGATIVE (NEGATIVE); KETONES,URINE NEGATIVE (NEGATIVE); LEUKOCYTE ESTERASE ,URINE NEGATIVE (NEGATIVE); NITRITE,URINE NEGATIVE (NEGATIVE); PROTEIN,URINE NEGATIVE (NEGATIVE)
[2020-04-22 14:18] LABS: ALANINE AMINOTRANSFERASE 13 U/L (0-55); ALBUMIN 3.1 GM/DL (3.2-4.5); ALKALINE PHOSPHATASE 80 U/L (40-136); BILIRUBIN,TOTAL 0.7 MG/DL (0.1-1.0); BUN/CREATININE RATIO 25; CALCIUM 8.7 MG/DL (8.5-10.1); CARBON DIOXIDE 27 MMOL/L (21-32); CHLORIDE 95 MMOL/L (98-107); CREATININE SERUM 0.68 MG/DL (0.60-1.30); GFR ESTIMATED > 60; GLUCOSE 106 MG/DL (70-105); POTASSIUM 4.5 MMOL/L (3.6-5.0); SODIUM 136 MMOL/L (135-145); TOTAL PROTEIN 6.6 GM/DL (6.4-8.2)
[2020-04-22 14:22] LABS: BACTERIA,URINE NEGATIVE /HPF; RBC,URINE RARE /HPF; WBC,URINE RARE /HPF
[2020-05-06 09:35] LABS: BASOPHILS # (AUTO) 0.1 10^3/uL (0.0-0.1); BASOPHILS % (AUTO) 1 % (0-10); EOSINOPHILS # (AUTO) 0.2 10^3/uL (0.0-0.3); EOSINOPHILS % (AUTO) 2 % (0-10); HEMATOCRIT 43 % (40-54); HEMOGLOBIN 13.6 g/dL (13.3-17.7); LYMPHOCYTES # (AUTO) 1.1 10^3/uL (1.0-4.0); LYMPHOCYTES % (AUTO) 12 % (12-44); MEAN CORPUSCULAR HEMOGLOBIN 30 pg (25-34); MEAN CORPUSCULAR HGB CONC 32 g/dL (32-36); MEAN CORPUSCULAR VOLUME 93 fL (80-99); MEAN PLATELET VOLUME 9.4 fL (9.0-12.2); MONOCYTES % (AUTO) 11 % (0-12); NEUTROPHILS # (AUTO) 6.5 10^3/uL (1.8-7.8); NEUTROPHILS % (AUTO) 74 % (42-75); PLATELET COUNT 177 10^3/uL (130-400); WHITE BLOOD COUNT 8.8 10^3/uL (4.3-11.0)
[2020-05-06 10:20] LABS: ALANINE AMINOTRANSFERASE 20 U/L (0-55); ALBUMIN 3.1 GM/DL (3.2-4.5); ALKALINE PHOSPHATASE 101 U/L (40-136); BILIRUBIN,TOTAL 1.7 MG/DL (0.1-1.0); BUN/CREATININE RATIO 38; CALCIUM 9.3 MG/DL (8.5-10.1); CARBON DIOXIDE 22 MMOL/L (21-32); CHLORIDE 94 MMOL/L (98-107); CREATININE SERUM 1.09 MG/DL (0.60-1.30); GFR ESTIMATED > 60; GLUCOSE 97 MG/DL (70-105); POTASSIUM 4.9 MMOL/L (3.6-5.0); SODIUM 132 MMOL/L (135-145); TOTAL PROTEIN 6.8 GM/DL (6.4-8.2)
[~2020-05-06 11:29] MED LIST changes: +NS IV 1000 ML (CANCER CTR) 1,000 ML ONE; +morphine INJ 10 MG/ML 1ML (CANCER CENTER) IV PRN; +morphine INJ 4 MG/ML 1 ML (CANCER CTR) IV ONE; +morphine INJ 4 MG/ML 1 ML (CANCER CTR) ONE
== END 2020-06-01 | disposition home or self-care (01) ==
LOC: ONC 11:29
PROVIDERS: ATTEND Internal Medicine Hematology & Oncology
DX: Z51.0 Encounter for antineoplastic radiation therapy (principal); C64.9 Malignant neoplasm of unspecified kidney, except renal pelvis; C79.51 Secondary malignant neoplasm of bone; C78.00 Secondary malignant neoplasm of unspecified lung; M48.04 Spinal stenosis, thoracic region; S24.114A Complete lesion at T11-T12 level of thoracic spinal cord, initial encounter; M27.8 Other specified diseases of jaws
CPT/HCPCS: 77290; 77295; 77300; 77334; 77336; 77402; 77407; 77417; 80053; 81000; 83615; 84443; 85025; 93005; 96361; 96374; 96376; 99204; 99213; 99214

== ENCOUNTER → 2020-05-06 | Outpatient (CLI) | payer MEDICARE, BC ==
[~2020-05-06] MED LIST changes: +DIATRIZOATE MEGLUM/SODIUM 37% 120 ML (GASTROGRAFIN) PO ONE
--- NOTE | 2020-05-06 15:51 | Diagnostic Imaging Report ---
INDICATION: Leaking PEG tube. FINDINGS: Abdominal films were obtained before and after injection of the indwelling PEG tube with 30 cc of Gastrografin and water. The gastrostomy tube appears to be outside the stomach with portions of the contrast injected entering the peritoneal cavity as well as the abdominal wall and a small portion of the injected contrast tracking into the stomach. IMPRESSION: The gastrostomy tube is outside the stomach. Part of the injected contrast is within the abdominal wall and peritoneal space with part of it tracking into the stomach. The results were called to Dr. Lima at the time of dictation. Dictated by: Dictated on workstation # [id number]
--- NOTE | 2020-05-06 16:56 | Diagnostic Imaging Report ---
Indication: Gastrostomy check. Findings: Overhead radiographs following contrast injection showed opacification of the stomach. Contrast empties into the duodenum. No extravasation. Impression: No extravasation, catheter patent opacifying the stomach, no evidence for gastric outlet obstruction. Dictated by: Dictated on workstation # [id number]
== END ==
LOC: RAD 14:40
PROVIDERS: ATTEND Surgery
DX: K94.23 Gastrostomy malfunction (principal)
CPT/HCPCS: 49465

== ENCOUNTER → 2020-05-06 | Outpatient (CLI) | payer MEDICARE, BC ==
[~2020-05-06] MED LIST changes: -DIATRIZOATE MEGLUM/SODIUM 37% 120 ML (GASTROGRAFIN) PO ONE
--- NOTE | 2020-05-06 12:31 | Diagnostic Imaging Report ---
PROCEDURE: US right lower extremity venous. TECHNIQUE: Multiple real-time grayscale images were obtained over the right lower extremity in various projections. Additional spectral analysis and color Doppler duplex images were also obtained. INDICATION: Right leg swelling. FINDINGS: The lateral right lower extremity femoropopliteal deep venous system is widely patent and showed normal flow, normal waveforms, and normal compressibility. IMPRESSION: Normal negative unilateral right lower extremity venous Doppler and ultrasound exam. Dictated by: Dictated on workstation # [id number]
== END ==
LOC: RAD 12:30
PROVIDERS: ATTEND Nurse Practitioner Adult Health
DX: M79.89 Other specified soft tissue disorders (principal)

== ENCOUNTER → 2020-05-08 | Outpatient (CLI) | payer MEDICARE, BC ==
[~2020-05-08] MED LIST changes: +DIATRIZOATE MEGLUM/SODIUM 37% 120 ML (GASTROGRAFIN) NG ONE; -NS IV 1000 ML (CANCER CTR) 1,000 ML ONE; -morphine INJ 10 MG/ML 1ML (CANCER CENTER) IV PRN; -morphine INJ 4 MG/ML 1 ML (CANCER CTR) IV ONE; -morphine INJ 4 MG/ML 1 ML (CANCER CTR) ONE
--- NOTE | 2020-05-08 10:31 | Diagnostic Imaging Report ---
INDICATION: MALFUNCTIONING TUBE. Post new PEG tube placement today. TECHNIQUE: 3 supine views of the abdomen, 9:56 AM. CORRELATION STUDY: 05/06/2020 FINDINGS: Initial imaging demonstrates contrast throughout the colon. Gastric tube projects over the left upper quadrant. There is apparent injection of contrast through the gastric tube which demonstrates contrast within the stomach migrating into the duodenum and proximal small bowel. Duodenal bulb inflated. Cholecystectomy clips in the right upper quadrant. IMPRESSION: 1. Post gastrostomy tube injection demonstrates contrast opacifying the stomach. No suggestion for significant contrast extravasation. No evidence for gastric bowel obstruction. Dictated by: Dictated on workstation # [id number]
== END ==
LOC: RAD 08:49
PROVIDERS: ATTEND Surgery
DX: K94.23 Gastrostomy malfunction (principal)
CPT/HCPCS: 49465

== ENCOUNTER 2020-05-11 09:01 | Emergency (ER) | payer MEDICARE, BC ==
[~2020-05-11] VITALS: Ht 177.8 cm; Wt 74.8 kg
[~2020-05-11 09:01] MED LIST changes: -DIATRIZOATE MEGLUM/SODIUM 37% 120 ML (GASTROGRAFIN) NG ONE
--- NOTE | 2020-05-11 10:02 | ED General ---
General Chief Complaint: Catheter/Drain/Tube Problems Stated Complaint: FEEDING TUBE PROBLEMS Nursing Triage Note: PT AMBULATE TO ROOM 06 WITH C/O WANTING FEEDING TUBE REMOVED. PT STATES THAT FEEDING TUBE PUT IN LAST YEAR AT AND HAD ANOTHER PLACED DR SMITH LAST MONDAY AND ANOTHER THE PREVIOUS MONDAY. PT STATES THAT IT HURTS AND THAT HIS CANCER IS "KILLING" HIM SO HE DOES NOT WANT THE FEEDING TUBE ANYMORE. PT REPORTS HE HAS NOT CONTACTED DR SMITH WITH THIS C/O. Nursing Sepsis Screen: No Definite Risk Source of Information: Patient History of Present Illness Date Seen by Provider: May 11, 2020 Time Seen by Provider: 09:40 Initial Comments PT ARRIVES VIA POV FROM HOME PT STATES HE IS HERE BECAUSE HE WANTS HIS FEEDING TUBE REMOVED. PT HAS HAD THE FEEDING TUBE IN PLACE FOR AT LEAST A YEAR--ORIGINALLY PLACED AT , AND IS DEPENDENT ON TUBE FEEDINGS, HE IS CURRENTLY BEING TREATED FOR METASTATIC RENAL CANCER WITH METS TO LEFT MANDIBLE. LAST CHEMO WAS A WEEK AGO, PER PT. PT HAD THE TUBE REPLACED TWICE LAST WEEK FOR MALFUNCTIONING/DISPLACEMENT--BY DR. SMITH. 05/06 AND 05/08 PT STATES IT IS WORKING NORMALLY, AND USED IT LAST NIGHT STATES IT HURTS AND HE WANTS IT REMOVED. HE HAS NOT DISCUSSED THIS WITH DR. BELLA, ONCOLOGIST, OR WITH DR. SMITH, SURGEON ONCOLOGY: DR. BELLA SURGEON: DR. SMITH Allergies and Home Medications Allergies Coded Allergies: lisinopril (Verified Allergy, Intermediate, 05/05/19) Home Medications ALPRAZolam 0.25 Mg Tablet, 0.25 MG PO BID, (Reported) Axitinib 5 Mg Tablet, 5 MG PO BID, (Reported) Diphenoxylate HCl/Atropine 1 Each Tablet, 1 EACH PO Q6H Prescribed by: ALLAN PIERCE on 05/06/19 0128 Diphenoxylate HCl/Atropine 1 Each Tablet, 1 TAB PO Q6H PRN for DIARRHEA, (Reported) Famotidine 20 Mg Tablet, 20 MG PO BID, (Reported) Fentanyl 1 Each Patch.td72, 25 MCG TD [id number], (Reported) TOOK PATCH OFF ON 05-26-2019 AND HAS NOT REAPPLIED Hydrocodone Bit/Acetaminophen 1 Each Tablet, 1-2 TAB PO Q6H Prescribed by: CLINTON LUU on 05/30/19 1627 Ondansetron 8 Mg Tab.rapdis, 8 MG PO Q6H PRN for NAUSEA/VOMITING-1ST LINE, (Reported) Pantoprazole Sodium 40 Mg Tablet.dr, 40 MG PO DAILY, (Reported) Zolpidem Tartrate 10 Mg Tablet, 10 MG PO HS, (Reported) Patient Home Medication List Home Medication List Reviewed: Yes Review of Systems Review of Systems Constitutional: no symptoms reported Gastrointestinal: see HPI Past Qmwidde-Xghefo-Myhini Hx Past Med/Social Hx: Reviewed and Corrections made Patient Social History Alcohol Use: Denies Use Recreational Drug Use: No Smoking Status: Former Smoker Type Used: Cigarettes, Smokeless Tobacco 2nd Hand Smoke Exposure: No Recent Foreign Travel: No Contact w/Someone Who Travel: No Recent Infectious Disease Expo: No Recent Hopitalizations: Yes (MAY 2019-PANCREATITIS) Physical Abuse: No Sexual Abuse: No Mistreated: No Fear: No Seasonal Allergies Seasonal Allergies: Yes Past Medical History Surgeries: Yes (FEEDING TUBE; PARTIAL COLECTOMY FOR BENIGN POLYPS) Abdominal, Gallbladder, Orthopedic Respiratory: No Cardiac: Yes Hypertension Neurological: No Genitourinary: Yes (METASTATIC LEFT RENAL CELL CARCINOMA) Gastrointestinal: Yes (FEEDING TUBE; PARTIAL COLECTOMY FOR BENIGN POLYPS) Polyps Musculoskeletal: No Endocrine: No HEENT: Yes (LEFT MANDIBLE METASTATIC MASS-FROM PRIMARY TUMOR OF LEFT KIDNEY) Cancer: Yes (METS TO JAW AND LYMPHNODES) Kidney Did You Recieve Any Treatments: Yes What Type of Treatment Did You: Chemotherapy Psychosocial: Yes Anxiety Integumentary: No Blood Disorders: No Family Medical History Alcoholism 19 FATHER Cardiovascular disease 19 FATHER 19 MOTHER G8 SISTER G8 SISTER Diabetes mellitus 19 MOTHER G8 SISTER G8 SISTER FH: pancreatic cancer 19 FATHER Fibromyalgia G8 SISTER Heart Disease, Cancer, Diabetes Physical Exam Vital Signs Vital Signs - First Documented 05/11/20 05/11/20 09:14 10:10 Temp 35.7 Pulse 130 Resp 22 B/P (MAP) 143/107 (119) Pulse Ox 95 O2 Delivery Room Air Capillary Refill : Less Than 3 Seconds Height, Weight, BMI Height: '" Weight: lbs. oz. kg; 23.00 BMI Method: General Appearance: No Apparent Distress, WD/WN HEENT: Other (LEFT MANDIBLE IS MARKEDLY ENLARGED) Respiratory: No Accessory Muscle Use Cardiovascular: Regular Rate, Rhythm Gastrointestinal: Soft, Other (FEEDING TUBE IN LEFT UPPER ABDOMEN IS IN PLACE, WITHOUT SIGNS OF INFECTION OR SIGNIFICANT LEAKING. ) Neurologic/Psychiatric: Alert, Oriented x3, No Motor/Sensory Deficits, Normal Mood/Affect Skin: Warm/Dry Progress/Results/Core Measures Suspected Sepsis Recent Fever Within 48 Hours: No Infection Criteria Present: None New/Unexplained Altered Menta: No Sepsis Screen: No Definite Risk SIRS Temperature: Pulse: 130 Respiratory Rate: 22 Blood Pressure 143 /107 Mean: 119 Results/Orders Vital Signs/I&O 05/11/20 05/11/20 09:14 10:10 Temp 35.7 Pulse 130 111 Resp 22 20 B/P (MAP) 143/107 (119) 139/87 Pulse Ox 95 O2 Delivery Room Air Room Air Capillary Refill : Less Than 3 Seconds Blood Pressure Mean: 119 Progress Note : Progress Note EXPLAINED TO PT THAT HE SHOULD DISCUSS THIS ISSUE WITH DR. BELLA. ADVISED HIM THAT TO REMOVE THE FEEDING TUBE WOULD LIKELY CAUSE STARVATION AND DEHYDRATION, HE IS COMPLETELY DEPENDENT ON TUBE FEEDINGS DUE TO HIS CANCER. Departure Communication (Admissions) 0969--SPOKE WITH DR. SMITH. HE ADVISES TO DISCUSS WITH DR. BELLA 0997--SPOKE WITH DR. BELLA. PT HAS NOT DISCUSSED HAVING FEEDING TUBE REMOVED WITH HIM. HE ADVISES PAIN MEDICATION ( PT TAKES MORPHINE AND OXYCODONE DAILY) AND FOLLOW UP WITH DR. SMITH IF PT WANTS IT REMOVED. Impression Primary Impression: FEEDING TUBE IN PLACE Additional Impression: Metastatic renal cell carcinoma Disposition: 01 HOME, SELF-CARE Condition: Stable Departure-Patient Inst. Referrals: ALEXANDRA SMITH BOBAN N SULLIVAN, WILLIAM J DO (PCP/Family) Primary Care Physician Patient Instructions: Enteral Feeding Add. Discharge Instructions: TAKE YOUR HOME PAIN MEDICATIONS PRESCRIBED USE YOUR FEEDING TUBE INSTRUCTED FOLLOW UP WITH DR. SMITH AND DR. BELLA THIS WEEK FOR FURTHER CARE All discharge instructions reviewed with patient and/or family. Voiced understanding. ALLAN PIERCE DO May 11, 2020 10:02
[2020-05-11 10:10] VITALS: BP 139/87
== END 2020-05-11 10:10 | disposition home or self-care (01) ==
LOC: EDUNIT# 09:01 → ER 09:02
DX: C64.2 Malignant neoplasm of left kidney, except renal pelvis (principal); F41.9 Anxiety disorder, unspecified; Z46.59 Encounter for fitting and adjustment of other gastrointestinal appliance and device; Z82.49 Family history of ischemic heart disease and other diseases of the circulatory system; Z83.3 Family history of diabetes mellitus; Z80.0 Family history of malignant neoplasm of digestive organs; Z85.528 Personal history of other malignant neoplasm of kidney; Z87.891 Personal history of nicotine dependence; Z88.8 Allergy status to other drugs, medicaments and biological substances
CPT/HCPCS: 99281

== ENCOUNTER 2020-05-17 20:28 | Emergency (ER) | payer MEDICARE, BC ==
[~2020-05-17] VITALS: Ht 177.8 cm; Wt 72.6 kg
[2020-05-17] MEDS ORDERED: NS IV 500 ML 500 ML IV STA (20:43)
[2020-05-17] MEDS ORDERED: RT-ALBUTEROL/IPRATROPIUM 3 ML (DUONEB) VIAL INH ONE (20:45)
--- NOTE | 2020-05-17 20:48 | ED General ---
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 Patient states he started hospice last week. Patient states that he put in a new PEG tube last week also. Patient states he got a little short of breath earlier and family, and was brought into the emergency department. Patient understands that he is a hospice patient understands that he has terminal cancer. Patient is satting 96% on 2 L by nasal cannula and having some tachycardia. Patient appears to be dry. We'll do medical evaluation treatment is needed. Timing/Duration: 12 Hours Associated Systoms: Loss of Appetite, Shortness of Air Allergies and Home Medications Allergies Coded Allergies: lisinopril (Verified Allergy, Intermediate, 05/05/19) Home Medications ALPRAZolam 0.25 Mg Tablet, 0.25 MG PO BID, (Reported) Axitinib 5 Mg Tablet, 5 MG PO BID, (Reported) Diphenoxylate HCl/Atropine 1 Each Tablet, 1 EACH PO Q6H Prescribed by: ALLAN PIERCE on 05/06/19 0128 Diphenoxylate HCl/Atropine 1 Each Tablet, 1 TAB PO Q6H PRN for DIARRHEA, (Reported) Famotidine 20 Mg Tablet, 20 MG PO BID, (Reported) Fentanyl 1 Each Patch.td72, 25 MCG TD [id number], (Reported) TOOK PATCH OFF ON 05-26-2019 AND HAS NOT REAPPLIED Hydrocodone Bit/Acetaminophen 1 Each Tablet, 1-2 TAB PO Q6H Prescribed by: CLINTON LUU on 05/30/19 1627 Ondansetron 8 Mg Tab.rapdis, 8 MG PO Q6H PRN for NAUSEA/VOMITING-1ST LINE, (Reported) Pantoprazole Sodium 40 Mg Tablet.dr, 40 MG PO DAILY, (Reported) Zolpidem Tartrate 10 Mg Tablet, 10 MG PO HS, (Reported) Patient Home Medication List Home Medication List Reviewed: Yes Review of Systems Review of Systems Constitutional: No no symptoms reported, No see HPI, No chills, No diaphoresis, No dizziness, No fever, No malaise, No weakness, No weight gain, No weight loss, No other EENTM: No see HPI, No no symptoms reported, No ear discharge, No hearing loss, No ear pain, No blurred vision, No double vision, No eye pain, No tearing, No vision loss, No dental problems, No hoarseness, No mouth pain, No mouth swelling, No epistaxis, No nose congestion, No nose pain, No throat pain, No throat swelling, No other Respiratory: No no symptoms reported; see HPI; No cough; dyspnea on exertion; No hemoptysis, No orthopnea, No phlegm, No short of breath, No stridor, No wheezing, No other Cardiovascular: No no symptoms reported; see HPI; No chest pain, No edema, No Hx of Intervention; palpitations; No syncope, No vascular heart diseas, No other Gastrointestinal: No RUQ, No LUQ, No RLQ, No LLQ, No no symptoms reported, No see HPI, No abdominal pain, No constipation, No diarrhea, No dysphagia, No hematemesis, No heartburn, No jaundice, No loss of appetite, No melena, No nausea, No vomiting, No other Genitourinary: No no symptoms reported, No see HPI, No decreased output, No discharge, No dysuria, No frequency, No hematuria, No hesitancy, No incontinence, No nocturia, No pain, No other Musculoskeletal: No no symptoms reported, No see HPI; back pain; No gout; joint pain; No joint swelling, No muscle pain, No muscle stiffness, No muscle cramps, No muscle twitching, No muscle weakness, No neck pain, No other All Other Systems Reviewed Negative Unless Noted: Yes Past Kobzxjy-Yfszqk-Pgvqaj Hx Patient Social History Type Used: Cigarettes, Smokeless Tobacco 2nd Hand Smoke Exposure: No Recent Foreign Travel: No Contact w/Someone Who Travel: No Recent Hopitalizations: Yes (MAY 2019-PANCREATITIS) Seasonal Allergies Seasonal Allergies: Yes Past Medical History Surgeries: Yes (FEEDING TUBE; PARTIAL COLECTOMY FOR BENIGN POLYPS) Abdominal, Gallbladder, Orthopedic Respiratory: No Cardiac: Yes Hypertension Neurological: No Genitourinary: Yes (METASTATIC LEFT RENAL CELL CARCINOMA) Gastrointestinal: Yes (FEEDING TUBE; PARTIAL COLECTOMY FOR BENIGN POLYPS) Polyps Musculoskeletal: No Endocrine: No HEENT: Yes (LEFT MANDIBLE METASTATIC MASS-FROM PRIMARY TUMOR OF LEFT KIDNEY) Cancer: Yes (METS TO JAW AND LYMPHNODES) Kidney Did You Recieve Any Treatments: Yes What Type of Treatment Did You: Chemotherapy Psychosocial: Yes Anxiety Integumentary: No Blood Disorders: No Family Medical History Alcoholism 19 FATHER Cardiovascular disease 19 FATHER 19 MOTHER G8 SISTER G8 SISTER Diabetes mellitus 19 MOTHER G8 SISTER G8 SISTER FH: pancreatic cancer 19 FATHER Fibromyalgia G8 SISTER Heart Disease, Cancer, Diabetes Physical Exam Vital Signs Vital Signs - First Documented 05/17/20 20:45 Temp 36.0 Pulse 140 Resp 23 B/P (MAP) 126/79 (95) Pulse Ox 96 O2 Delivery Nasal Cannula O2 Flow Rate 2.00 Capillary Refill : Height, Weight, BMI Height: '" Weight: lbs. oz. kg; 23.00 BMI Method: General Appearance: Chronically ill, Cachetic HEENT: Other (swelling to the lateral left face and neck due to his metastatic cancer.) Respiratory: Decreased Breath Sounds (but appears to be chronic for the patient. Mild tachypnea), Rhonci Cardiovascular: No Murmur, Tachycardia Gastrointestinal: Normal Bowel Sounds, No Organomegaly, No Pulsatile Mass, Non Tender, Soft, Other (PEG tube present) Neurologic/Psychiatric: Alert, Oriented x3 Skin: Warm/Dry, Other (skin is dry and warm to touch patient appears to be end- stage cancer patient.) Progress/Results/Core Measures Suspected Sepsis SIRS Temperature: Pulse: Respiratory Rate: Laboratory Tests 05/17/20 20:50: White Blood Count 12.4H Blood Pressure / Mean: Laboratory Tests 05/17/20 20:50: Creatinine 0.63, Platelet Count 275, Total Bilirubin 1.1H Results/Orders Lab Results Laboratory Tests Test 05/17/20 20:50 Range/Units White Blood Count 12.4 H 4.3-11.0 10^3/uL Red Blood Count 4.15 L 4.35-5.85 10^6/uL Hemoglobin 12.4 L 13.3-17.7 G/DL Hematocrit 38 L 40-54 % Mean Corpuscular Volume 92 80-99 FL Mean Corpuscular Hemoglobin 30 25-34 PG Mean Corpuscular Hemoglobin Concent 33 32-36 G/DL Red Cell Distribution Width 17.3 H 10.0-14.5 % Platelet Count 275 130-400 10^3/uL Mean Platelet Volume 9.2 7.4-10.4 FL Immature Granulocyte % (Auto) 1 % Neutrophils (%) (Auto) 75 42-75 % Lymphocytes (%) (Auto) 9 L 12-44 % Monocytes (%) (Auto) 13 H 0-12 % Eosinophils (%) (Auto) 2 0-10 % Basophils (%) (Auto) 0 0-10 % Neutrophils # (Auto) 9.3 H 1.8-7.8 X 10^3 Lymphocytes # (Auto) 1.1 1.0-4.0 X 10^3 Monocytes # (Auto) 1.6 H 0.0-1.0 X 10^3 Eosinophils # (Auto) 0.3 0.0-0.3 10^3/uL Basophils # (Auto) 0.0 0.0-0.1 10^3/uL Immature Granulocyte # (Auto) 0.2 H 0.0-0.1 10^3/uL Sodium Level 130 L 135-145 MMOL/L Potassium Level 4.6 3.6-5.0 MMOL/L Chloride Level 89 L 98-107 MMOL/L Carbon Dioxide Level 26 21-32 MMOL/L Anion Gap 15 H 5-14 MMOL/L Blood Urea Nitrogen 20 H 7-18 MG/DL Creatinine 0.63 0.60-1.30 MG/DL Estimat Glomerular Filtration Rate > 60 BUN/Creatinine Ratio 32 Glucose Level 112 H 70-105 MG/DL Calcium Level 10.3 H 8.5-10.1 MG/DL Corrected Calcium 11.1 H 8.5-10.1 MG/DL Total Bilirubin 1.1 H 0.1-1.0 MG/DL Aspartate Amino Transf (AST/SGOT) 21 5-34 U/L Alanine Aminotransferase (ALT/SGPT) 5 0-55 U/L Alkaline Phosphatase 82 40-136 U/L Total Protein 6.6 6.4-8.2 GM/DL Albumin 3.0 L 3.2-4.5 GM/DL My Orders Orders - FRANCESCO MENDOZA MD Ed Iv/Invasive Line Start (05/17/20 20:43) Cbc With Automated Diff (05/17/20 20:43) Comprehensive Metabolic Panel (05/17/20 20:43) Chest 1 View Ap/Pa Only (05/17/20 20:43) Ns Iv 500 Ml (Sodium Chloride 0.9%) (05/17/20 20:43) Albuterol/Ipra Inhalation Soln (Duoneb I (05/17/20 20:45) Svn Small Volume Nebulizer (05/17/20 20:43) Ns Iv 1000 Ml (Sodium Chloride 0.9%) (05/17/20 21:31) Medications Given in ED Current Medications Medications Dose Ordered Sig/Britton Route Start Time Stop Time Status Last Admin Dose Admin Albuterol/ Ipratropium 3 ml ONCE ONCE INH 05/17/20 20:45 05/17/20 20:47 DC 05/17/20 20:56 3 ML Vital Signs/I&O 05/17/20 20:45 Temp 36.0 Pulse 140 Resp 23 B/P (MAP) 126/79 (95) Pulse Ox 96 O2 Delivery Nasal Cannula O2 Flow Rate 2.00 Capillary Refill : Progress Note : Time: 21:07 Progress Note I discussed at length with patient's hospice nurse. We did discuss course of action. Patient will be given IV hydration patient has been having difficulty with tube feedings since new tube was placed. Believe is most likely slightly dehydrated hospice nurse agrees with gentle hydration at this time. Patient agrees and states understanding 2136 I discussed at length with patient and family about the patient's current care with hospice in his terminal diagnosis of end-stage metastatic cancer. Patient states understanding. Patient family state that they are aware that this illness and his current condition is chronic constipation his life. Patient states he does has a tendency to get a little scared. Patient is drinking sips of water through a straw this time. We did discuss at length with patient about his tachycardia and he states this is about normal for him in the 120s to 30s. Patient's blood pressure stable 1 413/54. Patient O2 sat is 97% and the patient does not appear to be acutely distressed or short of breath. Patient is breathing 16 times a minute. In speaking in full sentences. We did discuss at length with option. Patient will be discharged home for continued hospice. Departure Impression Primary Impression: Metastatic renal cell carcinoma Additional Impressions: Dyspnea Anxiety Chronic CHF (congestive heart failure) Disposition: 01 HOME, SELF-CARE Condition: Unchanged Departure-Patient Inst. Referrals: BRYAN ANTHONY DO (PCP/Family) Primary Care Physician Add. Discharge Instructions: Continue all home hospice care. Continue all home medications. Follow-up with hospice nurse in 1-2 days as instructed. FRANCESCO MENDOZA MD May 17, 2020 20:48
[2020-05-17 20:57] LABS: BASOPHILS % (AUTO) 0 % (0-10); EOSINOPHILS % (AUTO) 2 % (0-10); HEMATOCRIT 38 % (40-54); HEMOGLOBIN 12.4 G/DL (13.3-17.7); LYMPHOCYTES # (AUTO) 1.1 X 10^3 (1.0-4.0); LYMPHOCYTES % (AUTO) 9 % (12-44); MEAN CORPUSCULAR HEMOGLOBIN 30 PG (25-34); MEAN CORPUSCULAR HGB CONC 33 G/DL (32-36); MEAN CORPUSCULAR VOLUME 92 FL (80-99); MEAN PLATELET VOLUME 9.2 FL (7.4-10.4); MONOCYTES % (AUTO) 13 % (0-12); NEUTROPHILS # (AUTO) 9.3 X 10^3 (1.8-7.8); NEUTROPHILS % (AUTO) 75 % (42-75); PLATELET COUNT 275 10^3/uL (130-400); WHITE BLOOD COUNT 12.4 10^3/uL (4.3-11.0)
[2020-05-17 20:58] LABS: EOSINOPHILS # (AUTO) 0.3 10^3/uL (0.0-0.3); MONOCYTES # (AUTO) 1.6 X 10^3 (0.0-1.0)
--- NOTE | 2020-05-17 21:05 | Diagnostic Imaging Report ---
INDICATION: Shortness of breath. COMPARISON: 11/20/2019. EXAMINATION: Single view of the chest was obtained. FINDINGS: Cardiac enlargement with new central vascular congestion with bilateral pleural effusions. There is dependent atelectasis in the left base. There is no pneumothorax. Osseous structures are age-appropriate. There is a stable density in the left upper lobe. IMPRESSION: 1. Findings compatible with a CHF pattern. 2. Atelectasis left base. Underlying pneumonia not excluded. Follow-up recommended. Dictated by: Dictated on workstation # [id number]
[2020-05-17 21:15] LABS: CHLORIDE 89 MMOL/L (98-107); POTASSIUM 4.6 MMOL/L (3.6-5.0); SODIUM 130 MMOL/L (135-145)
[2020-05-17 21:16] LABS: ALANINE AMINOTRANSFERASE 5 U/L (0-55); ALKALINE PHOSPHATASE 82 U/L (40-136); BILIRUBIN,TOTAL 1.1 MG/DL (0.1-1.0); BUN/CREATININE RATIO 32; CALCIUM 10.3 MG/DL (8.5-10.1); CARBON DIOXIDE 26 MMOL/L (21-32); CREATININE SERUM 0.63 MG/DL (0.60-1.30); GFR ESTIMATED > 60; GLUCOSE 112 MG/DL (70-105); TOTAL PROTEIN 6.6 GM/DL (6.4-8.2)
[2020-05-17] MEDS ORDERED: NS IV 1000 ML 1,000 ML IV STA (21:31)
--- NOTE | 2020-05-17 21:54 | NUR ---
FAMILY CALLED PER PROVIDER AND ARE AT PT BEDSIDE. PROVIDER IN ROOM SPEAKING WITH FAMILY.
[2020-05-17 22:12] VITALS: BP 113/61
== END 2020-05-17 22:12 | disposition home or self-care (01) ==
LOC: EDUNIT# 20:28 → ER FS 20:35
DX: C79.00 Secondary malignant neoplasm of unspecified kidney and renal pelvis (principal); R06.00 Dyspnea, unspecified; F41.9 Anxiety disorder, unspecified; I50.9 Heart failure, unspecified; Z88.8 Allergy status to other drugs, medicaments and biological substances; Z82.49 Family history of ischemic heart disease and other diseases of the circulatory system; Z83.3 Family history of diabetes mellitus; Z80.0 Family history of malignant neoplasm of digestive organs
CPT/HCPCS: 36415; 71045; 80053; 85025